=== PATIENT | male | born 1955 | race Caucasian/White ===

== ENCOUNTER 2017-09-26 18:09 | Inpatient (IN) ==
--- NOTE | 2017-09-26 18:40 | Emergency Department Report ---
Asthma HPI - General Stated Complaint: fluid retention on chest, tired Time Seen by Provider: 09/26/17 18:30 Source: patient, family Mode of arrival: ambulatory Limitations: no limitations - History of Present Illness HPI Narrative: Patient presents with a three-day history of feelings of chest congestion and dyspnea and occasional chills. Patient especially gets short of breath when ambulating. Patient has had a little slight cough, but feels like he is not able to expectorate. No history of COPD lung problems or congestive heart failure to his knowledge, although the patient does take a diuretic for fluid retention. Patient sees Ledy De, and has not seen her for greater than 4 months. - Related Data Home Medications Medication Instructions Recorded Confirmed Hydralazine HCl 50 mg PO TIDWM #0 tab 11/03/15 09/26/17 Insulin Detemir [Levemir Flextouch] 15 unit SQ BID #0 syringe 11/03/15 09/26/17 Acetaminophen [Acetaminophen ER] 1,300 mg PO Q8H PRN 09/26/17 09/26/17 Aspirin 325 mg PO DAILY 09/26/17 09/26/17 Chlorpheniramine/Dextromethorp 2 tab PO PRN PRN 09/26/17 09/26/17 [Coricidin Hbp Cough & Cold Tab] Gabapentin 300 mg PO HS 09/26/17 09/26/17 Gabapentin [Neurontin] 100 mg PO QAM 09/26/17 09/26/17 Insulin Lispro [HumaLOG] 25 unit SQ BID 09/26/17 09/26/17 Lisinopril [Prinivil] 5 mg PO DAILY 09/26/17 09/26/17 Metoprolol Succinate [Toprol Xl] 100 mg PO DAILY 09/26/17 09/26/17 Multivit-Min/FA/Lycopen/Lutein 1 tab PO DAILY 09/26/17 09/26/17 [Centrum Silver Tablet] Torsemide [Demadex] 20 mg PO DAILY 09/26/17 09/26/17 Allergies Allergy/AdvReac Type Severity Reaction Status Date / Time No Known Allergies Allergy Verified 09/26/17 18:33 Review of Systems All systems: reviewed and negative except as stated PFSH Patient Stated Medical History Cerebrovascular Accident Yes Cardiac Arrhythmia Yes: AFIB TODAY Hypertension Yes Chronic Obstructive Pulmonary Yes Disease (COPD) Diabetes Mellitus Type 1 Yes Clotting Problems Yes: BLOOD CLOT Other Hematologic Yes: L LEG BYPASS Type 2 diabetes mellitus - insulin requiring. Peripheral vascular disease. Coronary artery disease. Cardiomyopathy. Hypertension. Dyslipidemia. Stage III chronic kidney disease. Anxiety/depression. Obesity with BMI 36.2. 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 At rest patient's pulse drops down into the high 80s) - Normal Exams: Head:: Normocephalic without trauma Eyes:: Pupils are PERRLA w/ EOMI, No scleral icterus, irritation, or foreign bodies noted ENMT:: No facial trauma, nasal exudates, pharyngeal erythema, or exudates are noted Neck:: Full range of motion, without adenopathy, JVD, bruits or thyromegaly Cardiovascular:: Regular rate and rhythm, without murmur or gallop, Pulses 2+ all extremities, capillary refill, <2 seconds all extremities Abdomen:: Bowel sounds positive, soft, non-tender, non-distended, no hepatosplenomegaly, masses or bruits noted Lymphatic:: No lymphadenopathy, or lymphedema noted Musculoskeletal:: No tenderness, or deformity noted, good range of motion, all extremities Integumentary:: No rashes, hives, or bruising noted, hair and nails, without abnormality Neurological:: Patient is alert, and oriented, cranial nerves, motor/sensory/ cerebellar, exams w/o gross deficits, to observation Psychiatric:: Patient exhibits, appropriate attention, emotion and affect - Chest Chest inspection: Present: normal inspection, symmetric chest wall rise. Absent : tenderness - Respiratory Respiratory exam: Absent: normal lung sounds bilaterally (or spinal leak, questionable crackles in the bases), respiratory distress, wheezes, stridor, accessory muscle use, prolonged expiratory phase Course Vital Signs Temperature 98.0 F 09/26/17 18:20 Pulse Rate 78 09/26/17 18:20 Respiratory Rate 22 09/26/17 18:20 Blood Pressure 126/99 H 09/26/17 18:20 Pulse Oximetry 97 07/31/18 18:20 Temperature 98.0 F 09/26/17 18:20 Pulse Rate 78 09/26/17 18:20 Respiratory Rate 22 09/26/17 18:20 Blood Pressure 126/99 H 09/26/17 18:20 Pulse Oximetry 97 09/26/17 18:20 Dyspnea - MDM Narrative Medical decision making narrative: 4 EKG could be done, patient went into obvious atrial fibrillation with tachycardia in the 170s, and hypotension 71/48. Recheck of the patient's blood pressure yielded a much better blood pressure 165/91. EKG -atrial fibrillation with rapid ventricular response Patient is given Cardizem 20 mg, instructed 1 L bolus - no improvement. Patient is given a second bolus of Cardizem 25 mg IV CBC - mild white blood cell elevation, no left shift CMP - n ProBNP - elevated at 9900 Troponin - updated, 0.180 CXR -moderate diffuse infiltrative pattern in the bases consistent with pulmonary edema. No focal consolidations are seen that appear to represent any pneumonia Case is discussed with Dr. Church, we will have amiodarone and heparin boluses here in the ER, and start amiodarone and heparin drip. If patient does not convert, or worsens, patient may require electrocardioversion, and may require heart catheter in the morning. Spite the patient's elevated heart rate, he persists in having no difficulty breathing and no chest pain or pressure while at rest. 1999 - Patient's last blood pressures have gone down, between 93 and 113 systolic. Patient continues to be asymptomatic - Lab Data Result diagrams: 09/26/17 18:52 09/26/17 18:52 Lab Results 09/26/17 09/26/17 Range/Units 18:52 18:52 WBC 14.0 H (4.5-11.0) T/MM3 RBC 3.92 L (4.50-5.90) M/MM3 Hgb 12.6 L (13.5-17.5) GM/DL Hct 39.9 L (41-53) % MCV 101.8 H (80-100) UM3 MCH 32.1 (26-34) UUG MCHC 31.6 (31-37) GM/DL RDW Std Deviation 51.9 H (36.9-50.2) FL Plt Count 204 (130-400) T/MM3 MPV 12.3 (9.4-12.4) UM3 Immature Gran % (Auto) 0.2 (0.0-0.5) % Neut % (Auto) 77.7 H (33-66) % Lymph % (Auto) 14.5 L (23-45) % Stewart % (Auto) 6.4 (0-9.0) % Eos % (Auto) 0.9 (0-4) % Baso % (Auto) 0.3 (0-2) % Neut # (Auto) 10.8 H (1.8-7.7) T/MM3 Lymph # (Auto) 2.0 (1-4.8) T/MM3 [place] # (Auto) 0.9 H (0-0.8) T/MM3 Eos # (Auto) 0.1 (0-0.5) T/MM3 Baso # (Auto) 0.0 (0-0.2) T/MM3 Abs Immat Gran (auto) 0.03 (0.00-0.03) T/MM3 Turbidity < 20 (0-20) Sodium 145 (136-146) MEQ/L Potassium 3.1 L (3.6-5) MEQ/L Chloride 102 (98-107) MEQ/L Carbon Dioxide 30 (22-30) MEQ/L Anion Gap 13 (5-15) meq/L BUN 32.0 H (9-20) MG/DL Creatinine 2.1 H (0.8-1.5) mg/dL Estimated Creat Clear 53 (>50) mL/min GFR Calculation 32 (>60) mL/min BUN/Creatinine Ratio 15 (6-26) RATIO Glucose 182 H (75-110) MG/DL Calculated Osmolality 291 H (261-280) MOSM/KG Calcium 8.1 L (8.4-10.2) MG/DL Total Bilirubin 0.90 (0.20-1.30) MG/DL Conjugated Bilirubin 0.00 (0.00-0.30) mg/dL Unconjugated Bilirubin 0.90 (0.00-1.1) mg/dL Icterus Index < 2 (0-7) AST 37 (17-59) U/L ALT 30 (1-50) U/L Alkaline Phosphatase 91 (38-126) U/L Troponin I 0.180 H (0-0.12) ng/ml NT-Pro-B Natriuret Pep 9960 H (0-175) pg/mL Total Protein 7.0 (6.3-8.2) g/dL Albumin 3.8 (3.5-5.0) g/dL Globulin 3.2 (2.4-3.6) G/DL Albumin/Globulin Ratio 1.2 (1.1-2.2) RATIO Plasma Lactate 1.8 (0.6-2.2) MMOL/L Specimen Hemolysis < 15 (0-25) Critical Care Time Critical Care Time: Yes Total Critical Care Time: 75 Attestation: The Pt required consistent and aggressive intervention and diagnostics for new onset atrial fibrillation with rapid ventricular response, and altered vital signs including hypotension Disposition Clinical Impression: New onset a-fib, Atrial fibrillation with RVR Disposition: 02 To [facility] [place] Acute Care Condition: Stable Prescriptions: No Action Hydralazine HCl 50 mg PO TIDWM #0 tab Metoprolol Succinate [Toprol Xl] 100 mg PO DAILY Insulin Lispro [HumaLOG] 25 unit SQ BID Gabapentin 300 mg PO HS Multivit-Min/FA/Lycopen/Lutein [Centrum Silver Tablet] 1 tab PO DAILY Aspirin 325 mg PO DAILY Torsemide [Demadex] 20 mg PO DAILY Lisinopril [Prinivil] 5 mg PO DAILY Chlorpheniramine/Dextromethorp [Coricidin Hbp Cough & Cold Tab] 2 tab PO PRN PRN PRN Reason: Prn Orders Insulin Detemir [Levemir Flextouch] 15 unit SQ BID #0 syringe Acetaminophen [Acetaminophen ER] 1,300 mg PO Q8H PRN PRN Reason: Pain Gabapentin [Neurontin] 100 mg PO QAM Referrals: Alfonzo Connolly DO [Family Provider] - - Seen By: physician
[2017-09-26] MEDS: SALINE FLUSH 10ml SYRINGE IVF PRN ×2 (18:49→20:41)
[2017-09-26] MEDS ORDERED: DiltiaZEM 25 MG/5 ML INJECTION IVP ONE ×2 (18:57→19:24)
[2017-09-26] MEDS ORDERED: NS 1,000 ML IV ONE (18:59)
[2017-09-26] MEDS ORDERED: HEPARIN 1,000unit/ml INJECTION 10ml IVP ONE (19:52)
[2017-09-26] MEDS ORDERED: AMIODARONE 150mg/3ml INJECTION IV ONE (19:52)
[2017-09-26] MEDS ORDERED: AMIODARONE 450 MG in NS 250ml 250 ML IV SCH (19:54)
[2017-09-26] MEDS: HEPARIN DRIP 20,000 UNIT/500 ML BAG IV SCH (20:26)
[2017-09-26 21:08] VITALS: BMI 37.0
[2017-09-26] MEDS ORDERED: FUROSEMIDE 40 MG/4 ML INJECTION IVP SCH (21:30)
[2017-09-26] MEDS: DiltiaZEM Drip 125 MG in NS 125 ML IV SCH (22:02)
[2017-09-27] MEDS ORDERED: AMIODARONE 150mg/3ml INJECTION IV ONE (00:16)
[2017-09-27] MEDS: METOPROLOL 5mg/5ml INJECTION IVP SCH ×5 (00:29→20:01)
[2017-09-27] MEDS ORDERED: AMIODARONE 450 MG in NS 250ml 250 ML IV SCH (00:53)
--- NOTE | 2017-09-27 01:37 | Cardiology History & Physical ---
History of Present Illness Chief complaint: SOB HPI: This is a 62 year old patient with a history of mild CAD, PVD s/p left fem-pop bypass, NICM, HTN, PHTN, DSLD, DMT2, CKD stage 2, anxiety, depression, obesity, and [place]' Palsy. [facility]. He has not seen Dr. Jean-Baptiste since 2016. For the last 3 days he has been feeling bad and not able to sleep. He has had increasing SOB, SAHU, orthopnea, and PND. He has felt sweaty, feverish, and had a dry cough and feels his lungs filling up with fluid. He denies chest pain, palpitations, racing heart, swelling in legs or abdomen. for the last 2 days, he has had no appetite. He states he just felt "icky". For the last month he has had a bad tooth. but his left side of his face droops due to Chinchilla's Palsy. He saw a local renal doctor one time 2 years ago and he was prescribed torsemide. He takes his meds as prescribed. He lives with his Mother who is able to care for herself. His Mother brought him into ER. In ER ECG: A-fib HR 150, PVC's, NS ST T wave abnormality. Trop 0.18, CBC - mild white blood cell elevation at 14, Neutrophils elevated, but no left shift, Pro BNP 9960, Cr 2.1. CXR -moderate diffuse infiltrative pattern in the bases consistent with pulmonary edema. No focal consolidations are seen that appear to represent any pneumonia In ER he was given Cardizem boluses x2 which did not keep her HR down. Dr. Church was contacted and advised Amiodarone bolus and gtt and heparin gtt. Cardiac Procedures: 07/08/2017 heart cath: EF 25%, svere global hypokinesis, LM, LAD, left circ, marginals, diagonals, and RCA all free of significant lesions with mini=or irregularities and stenosis no greater than 30%. 11/03/2015 AOR: Left SFA occluded prox with reconstitutions mid pop. Left tibial 80%, left anterior tibial and peroneal patent. Right SFA occluded prox with reconstitusion pop atery, infra po patent. Unsuccessful attempt to recanulize the left SFA. He was referred to Dr. Gates, vascular surgeon. 2016 Left fem-pop bypass by Dr. Gates. 10/16/2014 echo: EF 50 - 55%, LVH, DD, BAD, RVE, mild MR, mild TR, mild MD, PAP 39. 11/06/2015 Left great toe amputated. Review of Systems - Constitutional Constitutional: Present: fatigue, malaise (generalized), night sweats - EENMT Eyes: Absent: blurry vision Mouth/Throat: Absent: sore throat - Cardiovascular Cardiovascular: Present: dyspnea on exertion, orthopnea. Absent: chest pain, palpitations, syncope, edema Vascular: Absent: pedal edema - Respiratory Respiratory: Present: cough (dry), dyspnea, dyspnea on exertion, chest congestion - Gastrointestinal Gastrointestinal: Present: constipation (no BN for a couple of days, usually has BM daily. ), other (no appetite. ). Absent: abdominal pain, hematemesis, melena, nausea - Genitourinary Genitourinary: Present: nocturia, urinary frequency. Absent: dysuria, hematuria - Musculoskeletal Musculoskeletal: Present: arthralgias - Integumentary/Breasts Integumentary: Absent: wounds - Neurological Neurological: Present: dizziness, weakness, other (feels out of balance for a while. ) - Psychiatric Psychiatric: Present: anxiety, depression - Endocrine Endocrine: Present: heat intolerance. Absent: palpitations - Hematologic/Lymphatic Hematologic/Lymphatic: Absent: easy bleeding, easy bruising PFSH Patient Stated Medical History Cerebrovascular Accident Yes Cardiac Arrhythmia Yes: AFIB TODAY Hypertension Yes Chronic Obstructive Pulmonary Yes Disease (COPD) Diabetes Mellitus Type 2 Yes Clotting Problems Yes: BLOOD CLOT Other Hematologic Yes: L LEG BYPASS Mild CAD s/p heart cath by Dr. Jean-Baptiste 06/2014 PVD s/p LE angiogram: occluded SFA blanca in 2016 PVD s/p left fem-pop bypass in 2016 Left great toe amputated 2016. Hyperlipidemia CKD stage 2 Anxiety / Depression Obesity Surgical History: Heart cath. left fem - pop bypass. left great toe amputation - Social History Smoking status: Former smoker (smoked 2 PPD for 37 yrs. quit 5 yrs ago.) Substance use type: does not use Alcohol intake frequency: does not drink Housing: house Household members: family (Mother) Current occupational status: disabled Current residence: Apartment/Private Home Social history: Walks without assistive devices, yet feel unsteady. Medications Home Medications Medication Instructions Recorded Confirmed Type Hydralazine HCl 50 mg PO TIDWM #0 tab 11/03/15 09/26/17 History Insulin Detemir [Levemir Flextouch] 15 unit SQ BID #0 syringe 11/03/15 09/26/17 History Acetaminophen [Acetaminophen ER] 1,300 mg PO Q8H PRN 09/26/17 09/26/17 History Aspirin 325 mg PO DAILY 09/26/17 09/26/17 History Chlorpheniramine/Dextromethorp 2 tab PO PRN PRN 09/26/17 09/26/17 History [Coricidin Hbp Cough & Cold Tab] Gabapentin 300 mg PO HS 09/26/17 09/26/17 History Gabapentin [Neurontin] 100 mg PO QAM 09/26/17 09/26/17 History Insulin Lispro [HumaLOG] 25 unit SQ BID 09/26/17 09/26/17 History Lisinopril [Prinivil] 5 mg PO DAILY 09/26/17 09/26/17 History Metoprolol Succinate [Toprol Xl] 100 mg PO DAILY 09/26/17 09/26/17 History Multivit-Min/FA/Lycopen/Lutein 1 tab PO DAILY 09/26/17 09/26/17 History [Centrum Silver Tablet] Torsemide [Demadex] 20 mg PO DAILY 09/26/17 09/26/17 History Allergies Allergy/AdvReac Type Severity Reaction Status Date / Time No Known Allergies Allergy Verified 09/26/17 18:33 Exam Vital signs: Temperature 98.0 F 09/27/17 00:00 Pulse Rate 154 H 09/27/17 00:46 Respiratory Rate 18 09/27/17 00:46 Blood Pressure 114/67 09/27/17 00:46 Pulse Oximetry 92 09/27/17 00:31 - Constitutional no acute distress, well nourished, well developed, morbidly obese, cooperative - Routine HEENT Exam Head: Present: normocephalic, atraumatic Eye: Present: conjunctivae pink ENT: Present: mucous membranes moist - Routine Neck Exam Present: JVD. Absent: carotid bruit - Routine Respiratory Exam Present: CTA bilaterally. Absent: respiratory distress - Routine Cardiovascular Exam Present: no murmur, tachycardia, irregular rhythm - Routine Abdominal Exam Present: soft, distended. Absent: firm, mass, hernia - Routine Exam Scrotal: Absent: swelling - Routine Extremities Exam Present: no edema. Absent: clubbing, pulses intact (unable to palpate pedal pulses blanca) - Routine Back/Spine/Pelvis Exam Back/Spine: Absent: CVA tenderness - Routine Skin Exam Present: intact, dry, warm, normal turgor. Absent: wounds - Routine Neurological Exam Present: alert, oriented X3, moving all extremities, vision grossly intact, hearing grossly intact, normal speech - Routine Psychiatric Exam Present: normal affect, normal thought process, cooperative, good insight, good judgment Results 09/26/17 18:52 09/26/17 18:52 Intake and Output 09/26/17 09/26/17 09/27/17 14:59 22:59 06:59 Intake Total 705.167 / 705.167 108.250 / 108.250 Output Total 275 / 275 Balance 705.167 / 705.167 -166.750 / -166.750 Intake: IV 705.167 / 705.167 108.250 / 108.250 DiltiaZEM Drip 125 mg In Ns 125 2.167 / 2.167 34.083 / 34.083 ml @ 5 mls/hr IV .Q24H LINDA Rx# :[id number] Heparin Drip 20,000 unit In 500 40.000 / 40.000 74.167 / 74.167 ml @ 25 mls/hr IV .Q20H LINDA Rx #:[id number] Ns 1,000 ml @ 999.9 mls/hr IV . 663 / 663 Q1H ONE Rx#:[id number] Output: Urine 275 / 275 Other: Urine Appearance Clear Urine Color Dark Yellow Weight 281 lb 1.43 oz Patient Weight 09/27/17 06:59 Weight 281 lb 1.43 oz Laboratory Last Values WBC 14.0 T/MM3 (4.5-11.0) H 09/26/17 18:52 RBC 3.92 M/MM3 (4.50-5.90) L 09/26/17 18:52 Hgb 12.6 GM/DL (13.5-17.5) L 09/26/17 18:52 Hct 39.9 % (41-53) L 09/26/17 18:52 MCV 101.8 UM3 (80-100) H 09/26/17 18:52 MCH 32.1 UUG (26-34) 09/26/17 18:52 MCHC 31.6 GM/DL (31-37) 09/26/17 18:52 RDW Std Deviation 51.9 FL (36.9-50.2) H 09/26/17 18:52 Plt Count 204 T/MM3 (130-400) 09/26/17 18:52 MPV 12.3 UM3 (9.4-12.4) 09/26/17 18:52 Immature Gran % (Auto) 0.2 % (0.0-0.5) 09/26/17 18:52 Neut % (Auto) 77.7 % (33-66) H 09/26/17 18:52 Lymph % (Auto) 14.5 % (23-45) L 09/26/17 18:52 [place] % (Auto) 6.4 % (0-9.0) 09/26/17 18:52 Eos % (Auto) 0.9 % (0-4) 09/26/17 18:52 Baso % (Auto) 0.3 % (0-2) 09/26/17 18:52 Neut # (Auto) 10.8 T/MM3 (1.8-7.7) H 09/26/17 18:52 Lymph # (Auto) 2.0 T/MM3 (1-4.8) 09/26/17 18:52 [place] # (Auto) 0.9 T/MM3 (0-0.8) H 09/26/17 18:52 Eos # (Auto) 0.1 T/MM3 (0-0.5) 09/26/17 18:52 Baso # (Auto) 0.0 T/MM3 (0-0.2) 09/26/17 18:52 Abs Immat Gran (auto) 0.03 T/MM3 (0.00-0.03) 09/26/17 18:52 Turbidity < 20 (0-20) 09/26/17 18:52 Sodium 145 MEQ/L (136-146) 09/26/17 18:52 Potassium 3.1 MEQ/L (3.6-5) L 09/26/17 18:52 Chloride 102 MEQ/L (98-107) 09/26/17 18:52 Carbon Dioxide 30 MEQ/L (22-30) 09/26/17 18:52 Anion Gap 13 meq/L (5-15) 09/26/17 18:52 BUN 32.0 MG/DL (9-20) H 09/26/17 18:52 Creatinine 2.1 mg/dL (0.8-1.5) H 09/26/17 18:52 Estimated Creat Clear 53 mL/min (>50) 09/26/17 18:52 GFR Calculation 32 mL/min (>60) 09/26/17 18:52 BUN/Creatinine Ratio 15 RATIO (6-26) 09/26/17 18:52 Glucose 182 MG/DL (75-110) H 09/26/17 18:52 Glucometer 185 mg/dL (65-110) 09/27/17 01:50 Calculated Osmolality 291 MOSM/KG (261-280) H 09/26/17 18:52 Calcium 8.1 MG/DL (8.4-10.2) L 09/26/17 18:52 Total Bilirubin 0.90 MG/DL (0.20-1.30) 09/26/17 18:52 Conjugated Bilirubin 0.00 mg/dL (0.00-0.30) 09/26/17 18:52 Unconjugated Bilirubin 0.90 mg/dL (0.00-1.1) 09/26/17 18:52 Icterus Index < 2 (0-7) 09/26/17 18:52 AST 37 U/L (17-59) 09/26/17 18:52 ALT 30 U/L (1-50) 09/26/17 18:52 Alkaline Phosphatase 91 U/L (38-126) 09/26/17 18:52 Troponin I 0.180 ng/ml (0-0.12) H 09/26/17 18:52 NT-Pro-B Natriuret Pep 9960 pg/mL (0-175) H 09/26/17 18:52 Total Protein 7.0 g/dL (6.3-8.2) 09/26/17 18:52 Albumin 3.8 g/dL (3.5-5.0) 09/26/17 18:52 Globulin 3.2 G/DL (2.4-3.6) 07/31/18 18:52 Albumin/Globulin Ratio 1.2 RATIO (1.1-2.2) 09/26/17 18:52 Plasma Lactate 1.5 MMOL/L (0.6-2.2) 09/26/17 23:28 Specimen Hemolysis < 15 (0-25) 09/26/17 18:52 - EKG Interpretation EKG shows: tachycardia, atrial fibrillation Hospital Course This is a general summary of the patient's hospital course. For more details refer to the complete medical record. Assessment and Plan - Assessment and Plan (1) Atrial fibrillation with RVR Current visit: Yes Status: Acute - Assessment and Plan A-fib w RVR: new onset likely 3 days ago. - HR up to 180 on admit. - Received Cardizem boluses and Cardizem gtt at 15 mg/hr and HR 160's - Received metoprolol 5mg q 6 hrs with parameters and HR came down to 140's. - Started amiodarone bolus and gtt per protocol and HR decreased 100's - 120' s - Heparin gtt for anticoagulation. - metoprolol tartrate 25mg po QID (takes metoprolol succinate 100mg daily at home) - Replaced K+, check mag and TSH in am. . - NPO for possible RADHA/DCCV NSTEMI - likely due to A-fib w RVR - Trop 0.18 - check serial trop. Mild CAD per [address] Jean-Baptiste - stenosis no greater than 30% ( report on chart). - cont ASA, start statin. Hx NICM, DCM - 07/08/2014 Heart cath: EF 25%, - 10/16/2014 echo: EF 50-55%, LVH, DD, BAD, RVE, mild MR/TR/MD, PAP 39. - with SOB, SAHU, orthopnea, - BNP 9960 - lasix 40mg IV x1 tonight - which improved symptoms. will likely need more tomorrow. - takes torsemide at home as prescribed by renal - on hold for now. - echo to evaluate structure and function of heart. - need to check into who his renal physician is, has not seen for probably 2 years. PVD - s/p 2016 left fem-pop bypass. - s/p left great toe amputation. - cont ASA, start atorvastatin - feet warm, no wounds. HTN - hold home hydralazine and lisinopril in order to use other meds to control HR - cont metoprolol tartrate 25mg QID (home dose metorpolol succinate 100mg po daily). - cont Cardizem gtt for now. DMT2 - FBS and 2 hr pc - gave Levimir 15mg last night for BS 180 last night. (he takes it BID) - did not restart home humalog since NPO. CKD Stage 2 - monitor Cr. Bad tooth on left side of mouth for the last month. - states he plans to go to the dentist but concerned about the cost Chinchilla's Palsy.
[2017-09-27] MEDS ORDERED: ONDANSETRON 4 MG/2 ML INJECTION IVP PRN (01:39)
[2017-09-27] MEDS ORDERED: NITROGLYCERIN 0.4 MG SUBLINGUAL TABLET SL PRN (01:39)
[2017-09-27] MEDS: OMEPRAZOLE 20 MG CAPSULE PO SCH (06:12)
[2017-09-27] MEDS ORDERED: FUROSEMIDE 40 MG/4 ML INJECTION IVP ONE (06:30)
[2017-09-27] MEDS: DiltiaZEM Drip 125 MG in NS 125 ML IV SCH ×4 (06:31→23:57)
--- NOTE | 2017-09-27 08:30 | XRay Report ---
INDICATION: dyspnea with chills PROCEDURE: CHEST 2-VIEWS UPRIGHT (PA & LAT) Encounter: Initial COMPARISON: May 19, 2015 FINDINGS: There is hazy opacity seen in the perihilar regions bilaterally. No lobar pneumonia. No pneumothorax or pleural fluid. Cardiac silhouette remains enlarged. Mediastinal contours and pulmonary vascularity are stable. Impression: Perihilar opacities could represent edema or atypical/viral pneumonia. .
[2017-09-27] MEDS: INSULIN ASPART 100unit/ml INJECTION SQ SCH ×2 (08:49→18:27)
[2017-09-27] MEDS: ASPIRIN 325 MG TABLET PO SCH (08:56)
[2017-09-27] MEDS: GABAPENTIN 100 MG CAPSULE PO SCH (08:57)
[2017-09-27] MEDS: INSULIN DETEMIR 100unit/ml INJECTION SQ SCH ×2 (08:57→20:01)
[2017-09-27] MEDS: AMIODARONE 900 MG in NS 500ml 500 ML IV SCH (08:58)
[2017-09-27] MEDS ORDERED: NON-FORMULARY MEDICATION 1 EACH EACH (Insulin Detemir [Levemir Flextouch] 15 UNIT) SQ SCH (09:00)
[2017-09-27] MEDS ORDERED: [UNRECOGNIZED DRUG - REMARK] SQ SCH (09:00)
[2017-09-27] MEDS ORDERED: SALINE FLUSH 10ml SYRINGE ONE (10:09)
[2017-09-27] MEDS ORDERED: CHLORPHENIRAMINE 4 MG TABLET PO PRN (11:45)
[2017-09-27] MEDS ORDERED: DEXTROMETHORPHAN 30 MG/5 ML ORAL LIQUID PO PRN (11:46)
[2017-09-27] MEDS: BUMETANIDE IV SCH (15:47)
[2017-09-27] MEDS ORDERED: MIDAZOLAM 2mg/2ml INJECTION IVP ONE (15:48)
[2017-09-27] MEDS ORDERED: FentaNYL 100 MCG/2 ML INJECTION IVP ONE (15:48)
[2017-09-27] MEDS ORDERED: SALINE FLUSH 10ml SYRINGE IV ONE (15:48)
[2017-09-27] MEDS: HEPARIN DRIP 20,000 UNIT/500 ML BAG IV SCH (16:09)
[2017-09-27] MEDS ORDERED: FUROSEMIDE 40 MG/4 ML INJECTION IVP SCH (17:00)
[2017-09-27] MEDS: SALINE FLUSH 10ml SYRINGE IVF PRN (19:59)
[2017-09-27] MEDS: GABAPENTIN 300 MG CAPSULE PO SCH (20:01)
--- NOTE | 2017-09-27 21:21 | Echocardiogram ---
DATE OF PROCEDURE 09/27/2017 PROCEDURE PERFORMED 2D echocardiography with M-mode assessment, full color spectral Doppler assessment. INDICATIONS Acute heart failure exacerbation, known cardiomyopathy. FINDINGS 1. LEFT VENTRICLE: Left ventricle appears mildly to moderately enlarged. Mild concentric left ventricular hypertrophy noted. Severely reduced left ventricular systolic function noted. Estimated LVEF 15%-20%. There is severe global hypokinesis noted. The study is not technically sufficient to allow accurate assessment of diastolic dysfunction. 2. RIGHT VENTRICLE: Right ventricle appears normal in size. Normal right ventricular systolic function noted. 3. RIGHT ATRIUM: Right atrium is mildly enlarged. 4. LEFT ATRIUM: Left atrium is markedly dilated. 5. MITRAL VALVE: Mitral annulus is dilated. No structural abnormality is noted. There is central mitral regurgitation noted. [id number] mitral regurgitation noted. No significant mitral stenosis noted. 6. AORTIC VALVE: Aortic valve appears trileaflet. No significant aortic stenosis noted. No significant aortic regurgitation noted. 7. TRICUSPID VALVE: Tricuspid valve appears structurally normal. There is mild tricuspid regurgitation noted. 8. PULMONIC VALVE: Pulmonic valve not visualized on today's study. 9. INFERIOR VENA CAVA: Significantly dilated with poor respirophasic variation. 10. PULMONARY ARTERY: Estimated pulmonary artery systolic pressure is about 50 -60 mmHg. CONCLUSION 1. Significantly reduced left ventricular systolic function. Estimated LVEF 15 %-20%. 2. Right ventricle normal. Right ventricular systolic function normal. 3. [id number] mitral regurgitation noted. 4. Mild tricuspid regurgitation noted. 5. Dilated IVC with no respiratory variation noted. 6. Estimated pulmonary artery systolic pressure 50-60 mmHg. MTDD
--- NOTE | 2017-09-27 21:45 | Transesophageal Echocardiogram ---
DATE OF PROCEDURE 09/27/2017 PROCEDURES PERFORMED 1. Transesophageal echocardiography. 2. Synchronized direct current cardioversion. INDICATIONS Mr. Rosa is a 62-year-old male with known cardiomyopathy who presented with symptoms of acute heart failure exacerbation, also found to be in atrial fibrillation with rapid ventricular response. He was placed on amiodarone and Cardizem infusion overnight. He continued to remain in rapid ventricular response. Due to no response to intravenous agents he was referred for cardioversion. The patient has not been on anticoagulation so we decided to proceed with transesophageal echocardiogram to rule out intracardiac source of thrombus prior to cardioversion. NARRATIVE OF PROCEDURE The procedure was performed in the CCU at the bedside. Risks and benefits of the procedure were explained to the patient at length. Informed consent was obtained. The patient received intravenous midazolam 3 mg and intravenous Fentanyl 100 mg for conscious sedation. After sedation the probe was inserted without difficulty. Multiple transesophageal and transgastric views were obtained and the probe was removed. The patient at this point developed some apneic episodes and some oxygen desaturations. The patient was stabilized with brief bag-mask ventilation. We then proceeded with synchronized direct current cardioversion. A single shock was delivered. We were not able to convert the patient from atrial fibrillation. At this point since the patient continued to require high oxygen and from a respiratory standpoint was unstable, we aborted further attempts to cardiovert him. The patient was continuously monitored in CCU after the procedure. SUMMARY OF FINDINGS TRANSESOPHAGEAL ECHOCARDIOGRAM 1. LEFT VENTRICLE: Left ventricle is mildly to moderately enlarged. Mild concentric left ventricular hypertrophy. Significantly reduced left ventricular systolic function noted. Estimated LVEF is about 10%-15%. 2. RIGHT VENTRICLE: Right ventricle appears normal in size. Normal right ventricular systolic function noted. 3. MITRAL VALVE: Dilated mitral annulus. [id number] mitral regurgitation noted. 4. AORTIC VALVE: Aortic valve is trileaflet. There is trivial aortic regurgitation noted. 5. TRICUSPID VALVE: Tricuspid valve structurally normal. There is mild tricuspid regurgitation noted. 6. PULMONIC VALVE: Pulmonic valve is poorly visualized on today's study. 7. LEFT ATRIUM: Left atrium is significantly dilated. No significant thrombus or mass noted. Left atrial appendage is dilated. There is spontaneous echo contrast noted in the left atrial appendage but no thrombus or source of emboli noted. Emptying velocities are significantly reduced. CONCLUSION 1. Transesophageal echocardiography did not reveal any intracardiac source of emboli or left atrial appendage thrombus. There was spontaneous echo contrast noted in the left atrial appendage. 2. Unsuccessful attempt on cardioversion from atrial fibrillation. Patient remained in atrial fibrillation. RECOMMENDATIONS At this time will continue to optimize heart failure management. Aggressively diurese the patient. Continue on amiodarone infusion for now. Once the patient improves from a respiratory standpoint, then cardioversion can be reattempted. MTDD
[2017-09-27] MEDS ORDERED: HEPARIN - PHARMACY CONSULT MC ONE (22:36)
[2017-09-27] MEDS ORDERED: HEPARIN 1,000unit/ml INJECTION 10ml IVP ONE (23:49)
[2017-09-28] MEDS: BUMETANIDE IV SCH (02:05)
[2017-09-28] MEDS: METOPROLOL 5mg/5ml INJECTION IVP SCH ×4 (03:01→20:45)
[2017-09-28] MEDS ORDERED: ZOLPIDEM 5 MG TABLET PO PRN (05:15)
[2017-09-28] MEDS ORDERED: HYDRALAZINE 25 MG TABLET PO ONE (05:21)
[2017-09-28] MEDS: OMEPRAZOLE 20 MG CAPSULE PO SCH (06:37)
--- NOTE | 2017-09-28 07:33 | Pharmacy Consult ---
Pharmacy Consult-Heparin - Laboratory Information Heparin Plt Count 215 T/MM3 (130-400) 09/28/17 04:18 APTT 33.1 SEC (24-36) 09/27/17 22:49 HEPARIN THERAPY: 62yo M presenting with A. Fib with RVR, NSTEMI. Multiple comorbidities: T2DM, COPD, HTN CKD stage 2, Hyperlipidemia, etc. Heparin was started 09/26 evening with Bolus 4,000 units, Drip at 1000 units/hr. PTT 09/27 @ 2300 = 33.1 Gave another bolus of 5,000 units. Increased drip to 1,320 units/hr (33 ml/hr). Plt count continues WNL. Repeating PTT this am at 0800. Thank you
--- NOTE | 2017-09-28 08:23 | XRay Report ---
Indication: picc line PROCEDURE: XR chest 1V: Encounter: Initial Comparison: September 26, 2017 Findings: New right PICC line with the tip projecting over the right internal jugular vein on the initial image and over the mid to distal SVC on the subsequent image. Fluffy bilateral infiltrates with interval worsening in the left upper lobe. No pneumothorax or definite effusion. Heart size is contours are stable. Impression: New right PICC line tip projects over the lower SVC. Increasing edema. There is a preliminary report by [facility]. .
[2017-09-28] MEDS: INSULIN DETEMIR 100unit/ml INJECTION SQ SCH ×2 (08:31→20:43)
[2017-09-28] MEDS: INSULIN ASPART 100unit/ml INJECTION SQ SCH ×2 (08:32→17:54)
[2017-09-28] MEDS: HYDRALAZINE 25 MG TABLET PO SCH ×3 (08:34→17:53)
[2017-09-28] MEDS: ASPIRIN 325 MG TABLET PO SCH (08:34)
[2017-09-28] MEDS: GABAPENTIN 100 MG CAPSULE PO SCH (08:38)
[2017-09-28] MEDS ORDERED: HEPARIN 1,000unit/ml INJECTION 10ml IVP ONE ×2 (09:00→18:45)
--- NOTE | 2017-09-28 09:00 | Pharmacy Consult ---
Pharmacy Consult-Heparin - Laboratory Information Heparin Plt Count 215 T/MM3 (130-400) 09/28/17 04:18 APTT 37.1 SEC (24-36) H 09/28/17 07:56 HEPARIN THERAPY: PTT still low. Will BOLUS again, this time with 7,000 units Heparin IV. Increase drip to 1600 units/hr (40 ml/hr). Will recheck levels this afternoon. Target PTT = 50-75 sec. thank you
[2017-09-28] MEDS: DiltiaZEM Drip 125 MG in NS 125 ML IV SCH ×2 (09:22→18:27)
[2017-09-28] MEDS: HEPARIN DRIP 20,000 UNIT/500 ML BAG IV SCH ×2 (10:08→22:25)
[2017-09-28] MEDS: DiltiaZEM IR 60 MG TABLET PO SCH ×2 (12:37→18:30)
--- NOTE | 2017-09-28 13:40 | Cardiology Progress Note ---
Subjective Principal diagnosis: dyspnea Interval history: Jordon is seen in follow up for A Fib with RVR, NSTEMI. He states his breathing is much improved from yesterday. HR remains elevated in the 120-130s however the patient is unaware. He denies chest pain or pressure. Exam Vital signs: Temperature 97.7 F 09/28/17 04:00 Pulse Rate 143 H 09/28/17 07:15 Respiratory Rate 22 09/28/17 07:15 Blood Pressure 155/99 H 09/28/17 07:15 Pulse Oximetry 90 09/28/17 07:15 Inpatient Medications: Generic Name Dose Route Start Last Admin Trade Name Freq PRN Reason Stop Dose Admin Acetaminophen 1,300 mg 09/27/17 00:17 09/28/17 11:18 Tylenol Arthritis 650 Mg Sr PO 1,300 mg Q8H PRN Administration Pain Aspirin 325 mg 09/27/17 09:00 09/28/17 08:34 Asa PO 325 mg DAILY LINDA Administration Chlorpheniramine Maleate 4 mg 09/27/17 11:45 Chlor-Trimeton PO PRN PRN For allergic rhinitis Dextromethorphan Polistirix 30 mg 09/27/17 11:46 Delsym Ext-Release PO Q12H PRN For cough Diltiazem HCl 60 mg 09/28/17 12:30 09/28/17 12:37 Cardizem Ir 60 Mg Tab PO 60 mg Q6H LINDA Administration Gabapentin 100 mg 09/27/17 09:00 09/28/17 08:38 Neurontin PO 100 mg QAM LINDA Administration Gabapentin 300 mg 09/27/17 21:00 09/27/17 20:01 Neurontin PO 300 mg HS LINDA Administration Hydralazine HCl 50 mg 09/28/17 08:00 09/28/17 12:34 Apresoline PO 50 mg TIDWM LINDA Administration Heparin Sodium (Porcine) 20,000 unit in 500 mls @ 40 mls/hr 09/26/17 19:54 10:08 Heparin Drip IV 40 mls/hr .[id number] LINDA 40 mls/hr Administration Protocol Diltiazem HCl 125 mg/ Sodium 125 mls @ 5 mls/hr 09/26/17 21:30 09/28/17 09:22 Chloride IV 15 mls/hr .Q24H LINDA Administration Protocol Amiodarone HCl 900 mg/ Sodium 500 mls @ 16.66 mls/hr 09/27/17 00:53 09/28/17 07:00 Chloride IV 0.5 mg/min .Q24H LINDA 16.66 mls/hr Infusion 0.5 MG/MIN Bumetanide 25 mg/ IV Solution 100 mls @ 4 mls/hr 09/27/17 15:30 09/28/17 07: 00 IV 1 mg/hr .Q24H LINDA 4 mls/hr Infusion 1 MG/HR Insulin Aspart 15 unit 09/27/17 08:00 09/28/17 08:32 Novolog SQ 15 unit BIDWM LINDA Administration Insulin Detemir 15 unit 09/27/17 09:00 09/28/17 08:31 Levemir SQ 15 unit BID LINDA Administration Metoprolol Tartrate 5 mg 09/27/17 00:15 09/28/17 11:45 Lopressor IVP 5 mg Q6HR LINDA Administration Metoprolol Tartrate 25 mg 09/27/17 08:00 09/28/17 12:35 Lopressor PO 25 mg WMHS LINDA Administration Nitroglycerin 0.4 mg 09/27/17 01:39 Nitrostat SL Q5MIN3 PRN Chest pain Omeprazole 20 mg 09/27/17 06:30 09/28/17 06:37 Prilosec PO 20 mg ACB LINDA Administration Ondansetron HCl 4 mg 09/27/17 01:39 Zofran IVP Q6H PRN Nausea &/or vomiting Potassium Chloride 20 meq 09/27/17 17:30 09/28/17 12:35 K-Dur 20 Meq Tablet PO 20 meq TIDWM LINDA Administration Sodium Chloride 10 - 80 ml 09/26/17 18:36 09/27/17 19:59 Iv Flush IVF 20 ml PRN PRN Administration Flushing Zolpidem Tartrate 5 mg 09/28/17 05:15 Ambien PO HS PRN Insomnia Discontinued Medications Generic Name Dose Route Start Last Admin Trade Name Freq PRN Reason Stop Dose Admin Amiodarone HCl 150 mg 09/26/17 19:52 09/27/17 07:15 Amiodarone IV 09/26/17 19:53 Not Given O ONE Amiodarone HCl 150 mg 09/27/17 00:16 09/27/17 00:29 Amiodarone IV 09/27/17 00:17 150 mg O ONE Administration Bumetanide 2 mg 09/27/17 14:24 09/27/17 15:02 Bumex 1 Mg/4 Ml Inj. IVP 09/27/17 14:25 2 mg O ONE Administration Diltiazem HCl 20 mg 09/26/17 18:57 09/26/17 19:04 Cardizem 25 Mg Inj IVP 09/26/17 18:58 20 mg O ONE Administration Diltiazem HCl 25 mg 09/26/17 19:24 09/26/17 19:33 Cardizem 25 Mg Inj IVP 09/26/17 19:25 25 mg O ONE Administration Furosemide 40 mg 09/26/17 21:30 09/26/17 21:27 Lasix 40 Mg/4 Ml IVP 40 mg O LINDA Administration Furosemide 40 mg 09/27/17 06:30 09/27/17 06:58 Lasix 40 Mg/4 Ml IVP 09/27/17 06:31 40 mg O ONE Administration Furosemide 40 mg 09/27/17 17:00 Lasix 40 Mg/4 Ml IVP Q8HR LINDA Heparin Sodium (Beef Lung) 4,000 unit 09/26/17 19:52 09/26/17 20:07 Heparin Bolus IVP 09/26/17 19:53 4,000 unit O ONE Administration Heparin Sodium (Beef Lung) 5,000 unit 09/27/17 23:49 09/27/17 23:56 Heparin Bolus IVP 09/27/17 23:50 5,000 unit O ONE Administration Heparin Sodium (Beef Lung) 7,000 unit 09/28/17 09:00 09/28/17 09:08 Heparin Bolus IVP 09/28/17 09:01 7,000 unit O ONE Administration Heparin Sodium (Porcine) 1 each 09/27/17 22:36 09/28/17 00:22 Pharmacy Consult - Heparin MC 09/27/17 22:37 1 each O ONE Administration Hydralazine HCl 50 mg 09/28/17 05:21 09/28/17 05:33 Apresoline PO 09/28/17 05:22 Not Given O ONE Sodium Chloride 1,000 mls @ 999.9 mls/hr 09/26/17 18:59 09/26/17 19:45 Normal Saline IV 09/26/17 19:58 Infused .Q1H ONE Infusion Amiodarone HCl 450 mg/ Sodium 250 mls @ 33.33 mls/hr 09/26/17 19:54 09/27/17 07:01 Chloride IV 09/27/17 01:54 Not Given .Q7H31M LINDA 1 MG/MIN Amiodarone HCl 450 mg/ Sodium 250 mls @ 33.33 mls/hr 09/27/17 00:53 09/27/17 09:00 Chloride IV 09/27/17 06:53 Infused .Q7H31M LINDA Infusion 1 MG/MIN Non-Formulary Medication 2 tab 09/27/17 00:17 Chlorpheniramine/Dextromethorp [Coricidin Hbp Cough & Cold Tab] PO PRN PRN PRN orders Non-Formulary Medication 15 unit 09/27/17 09:00 Insulin Detemir [Levemir Flextouch] SQ BID LINDA Non-Formulary Medication 25 unit 09/27/17 09:00 Insulin Lispro-Do Not Expunge SQ BID LINDA Potassium Chloride 40 meq 09/27/17 00:22 09/27/17 00:37 K-Dur 20 Meq Tablet PO 09/27/17 00:23 40 meq O ONE Administration Potassium Chloride 20 meq 09/28/17 05:18 09/28/17 05:33 K-Dur 20 Meq Tablet PO 09/28/17 05:19 Not Given O ONE - Constitutional no acute distress, well nourished, cooperative - Routine HEENT Exam Head: Present: normocephalic ENT: Present: mucous membranes dry - Routine Neck Exam Absent: JVD, carotid bruit - Routine Chest/Breast/Axilla Exam Chest wall: Absent: tenderness - Routine Respiratory Exam Present: CTA bilaterally, diminished air movement. Absent: dyspnea - Routine Cardiovascular Exam Present: no murmur, tachycardia, irregularly irregular - Routine Abdominal Exam Present: soft, non tender - Routine Extremities Exam Present: no edema. Absent: pulses intact - Routine Skin Exam Present: intact, dry, warm - Routine Neurological Exam Present: alert - Routine Psychiatric Exam Present: normal affect - Urinary Catheter Management Urethral Cath placed during this visit: yes Insertion date: 09/27/17 Insertion time: 14:49 Results 09/28/17 04:18 09/28/17 04:18 Cardiac Enzymes 09/27/17 Range/Units 15:19 Troponin I 0.167 H (0-0.12) ng/ml Coagulation 09/27/17 09/28/17 Range/Units 22:49 07:56 APTT 33.1 37.1 H (24-36) SEC Lipids 09/28/17 Range/Units 04:18 Triglycerides 251 H (40-160) mg/dL Cholesterol 144 (132-199) mg/dL HDL Cholesterol 26 L (40-60) mg/dL Cholesterol/HDL Ratio 5.5 H (0-5.0) RATIO CBC 09/28/17 Range/Units 04:18 WBC 16.9 H (4.5-11.0) T/MM3 RBC 3.79 L (4.50-5.90) M/MM3 Hgb 12.2 L (13.5-17.5) GM/DL Hct 39.1 L (41-53) % Plt Count 215 (130-400) T/MM3 Comprehensive Metabolic Panel 09/28/17 Range/Units 04:18 Sodium 147 H (136-146) MEQ/L Potassium 3.1 L (3.6-5) MEQ/L Chloride 101 (98-107) MEQ/L Carbon Dioxide 32 H (22-30) MEQ/L BUN 47.0 H (9-20) MG/DL Creatinine 2.2 H (0.8-1.5) mg/dL Glucose 173 H (75-110) MG/DL Calcium 7.0 L D (8.4-10.2) MG/DL Intake and Output 09/27/17 09/28/17 09/28/17 22:59 06:59 14:59 Intake Total 1077.752 / 1077.752 766.030 / 766.030 160.66 / 160.66 Output Total 772 / 772 2280 / 2280 265 / 265 Balance 305.752 / 305.752 -1513.970 / -1513.970 -104.34 / -104.34 Intake: IV 837.752 / 837.752 526.030 / 526.030 160.66 / 160.66 Amiodarone 900 mg In NS 500ml 217.135 / 217.135 133.28 / 133.28 16.66 / 16.66 500 ml @ 0.5 MG/MIN 16.66 mls/ hr IV .Q24H LINDA Rx#:[id number] Bumetanide Inj 25 mg In 24.867 / 24.867 32.000 / 32.000 4 / 4 Container,Empty 100 ml @ 1 MG/ HR 4 mls/hr IV .Q24H LINDA Rx#: [id number] DiltiaZEM Drip 125 mg In Ns 125 220.75 / 220.75 112.75 / 112.75 34.25 / 34.25 ml @ 5 mls/hr IV .Q24H LINDA Rx# :[id number] Heparin Drip 20,000 unit In 500 375.00 / 375.00 248 / 248 105.75 / 105.75 ml @ 40 mls/hr IV .[id number] LINDA Rx#:[id number] Oral 240 / 240 240 / 240 Output: Urine Amount (Catheter) 772 / 772 2280 / 2280 265 / 265 Other: Urine Appearance Clear Clear Clear Urine Color Yellow Yellow Yellow # Bowel Movements 1 - Imaging and Cardiology Imaging & Cardiology Narrative: Date of Exam: 09/27/17 Type of Exam(s): US fernie w/ doppler DATE OF PROCEDURE 09/27/2017 PROCEDURES PERFORMED 1. Transesophageal echocardiography. 2. Synchronized direct current cardioversion. INDICATIONS Mr. Rosa is a 62-year-old male with known cardiomyopathy who presented with symptoms of acute heart failure exacerbation, also found to be in atrial fibrillation with rapid ventricular response. He was placed on amiodarone and Cardizem infusion overnight. He continued to remain in rapid ventricular response. Due to no response to intravenous agents he was referred for cardioversion. The patient has not been on anticoagulation so we decided to proceed with transesophageal echocardiogram to rule out intracardiac source of thrombus prior to cardioversion. NARRATIVE OF PROCEDURE The procedure was performed in the CCU at the bedside. Risks and benefits of the procedure were explained to the patient at length. Informed consent was obtained. The patient received intravenous midazolam 3 mg and intravenous Fentanyl 100 mg for conscious sedation. After sedation the probe was inserted without difficulty. Multiple transesophageal and transgastric views were obtained and the probe was removed. The patient at this point developed some apneic episodes and some oxygen desaturations. The patient was stabilized with brief bag-mask ventilation. We then proceeded with synchronized direct current cardioversion. A single shock was delivered. We were not able to convert the patient from atrial fibrillation. At this point since the patient continued to require high oxygen and from a respiratory standpoint was unstable, we aborted further attempts to cardiovert him. The patient was continuously monitored in CCU after the procedure. SUMMARY OF FINDINGS TRANSESOPHAGEAL ECHOCARDIOGRAM 1. LEFT VENTRICLE: Left ventricle is mildly to moderately enlarged. Mild concentric left ventricular hypertrophy. Significantly reduced left ventricular systolic function noted. Estimated LVEF is about 10%-15%. 2. RIGHT VENTRICLE: Right ventricle appears normal in size. Normal right ventricular systolic function noted. 3. MITRAL VALVE: Dilated mitral annulus. [id number]-[id number] mitral regurgitation noted. 4. AORTIC VALVE: Aortic valve is trileaflet. There is trivial aortic regurgitation noted. 5. TRICUSPID VALVE: Tricuspid valve structurally normal. There is mild tricuspid regurgitation noted. 6. PULMONIC VALVE: Pulmonic valve is poorly visualized on today's study. 7. LEFT ATRIUM: Left atrium is significantly dilated. No significant thrombus or mass noted. Left atrial appendage is dilated. There is spontaneous echo contrast noted in the left atrial appendage but no thrombus or source of emboli noted. * * velocities are significantly reduced. CONCLUSION 1. Transesophageal echocardiography did not reveal any intracardiac source of emboli or left atrial appendage thrombus. There was spontaneous echo contrast noted in the left atrial appendage. 2. Unsuccessful attempt on cardioversion from atrial fibrillation. Patient remained in atrial fibrillation. RECOMMENDATIONS At this time will continue to optimize heart failure management. Aggressively diurese the patient. Continue on amiodarone infusion for now. Once the patient improves from a respiratory standpoint, then cardioversion can be reattempted. 09/28/17 13:40 Assessment and Plan - Assessment and Plan (1) Atrial fibrillation with RVR Current visit: Yes Status: Acute - Assessment and Plan 09/27/17 A-fib w RVR: new onset likely 3 days ago. - HR up to 180 on admit. - Received Cardizem boluses and Cardizem gtt at 15 mg/hr and HR 160's - Received metoprolol 5mg q 6 hrs with parameters and HR came down to 140's. - Started amiodarone bolus and gtt per protocol and HR decreased 100's - 120' s - Heparin gtt for anticoagulation. - metoprolol tartrate 25mg po QID (takes metoprolol succinate 100mg daily at home) - Replaced K+, check mag and TSH in am. . - NPO for possible FERNIE/DCCV NSTEMI - likely due to A-fib w RVR - Trop 0.18 - check serial trop. Mild CAD per [address] Jean-Baptiste - stenosis no greater than 30% ( report on chart). - cont ASA, start statin. Hx NICM, DCM - 07/08/2014 Heart cath: EF 25%, - 10/16/2014 echo: EF 50-55%, LVH, DD, BAD, RVE, mild MR/TR/AL, PAP 39. - with SOB, SAHU, orthopnea, - BNP 9960 - lasix 40mg IV x1 tonight - which improved symptoms. will likely need more tomorrow. - takes torsemide at home as prescribed by renal - on hold for now. - echo to evaluate structure and function of heart. - need to check into who his renal physician is, has not seen for probably 2 years. PVD - s/p 2016 left fem-pop bypass. - s/p left great toe amputation. - cont ASA, start atorvastatin - feet warm, no wounds. HTN - hold home hydralazine and lisinopril in order to use other meds to control HR - cont metoprolol tartrate 25mg QID (home dose metorpolol succinate 100mg po daily). - cont Cardizem gtt for now. DMT2 - FBS and 2 hr pc - gave Levimir 15mg last night for BS 180 last night. (he takes it BID) - did not restart home humalog since NPO. CKD Stage 2 - monitor Cr. Bad tooth on left side of mouth for the last month. - states he plans to go to the dentist but concerned about the cost Chinchilla's Palsy. 09/28/17 - FERNIE without thrombus, DCCV unsuccessful yesterday, see report - EF 10-15%, medical management - Rate remains elevated in the 120-130s. - Start diltiazem IR 60mg Q6h, and wean drip as able - Increase diltiazem to 90mg in 6 hours if rate is consistently >100 - Continue diuresis with Bumex drip - monitor renal and electrolytes - chest x-ray in the am - Hospital Course Summary Disclaimer: The visit summary below is not to be considered part of the above Progress Note.
[2017-09-28] MEDS: DOCUSATE SODIUM 100 MG CAPSULE PO SCH (16:16)
[2017-09-28] MEDS: AMIODARONE 900 MG in NS 500ml 500 ML IV SCH (16:41)
--- NOTE | 2017-09-28 18:45 | Pharmacy Consult ---
Pharmacy Consult-Heparin - Laboratory Information Heparin Plt Count 215 T/MM3 (130-400) 09/28/17 04:18 APTT 37.7 SEC (24-36) H 09/28/17 17:08 HEPARIN DRIP: PTT only increased to 37.7, from 37.1 earlier today. That was after a 7,000 unit bolus + increasing the drip to 1600 units/hr. So - will rebolus again with 7,000 units now, increase drip again to 1880 units/ hr (47 ml/hr). Will recheck PTT. Pt will have had a total of 23,000 units heparin bolus. Drip running at fast rate. Will watch PTT closely. Recheck platelets as well. Thank you.
[2017-09-28] MEDS: GABAPENTIN 300 MG CAPSULE PO SCH (20:43)
[2017-09-29] MEDS: DiltiaZEM IR 60 MG TABLET PO SCH ×5 (01:54→23:37)
[2017-09-29] MEDS: METOPROLOL 5mg/5ml INJECTION IVP SCH ×4 (03:09→20:30)
[2017-09-29] MEDS: BUMETANIDE IV SCH (03:43)
[2017-09-29] MEDS: DiltiaZEM Drip 125 MG in NS 125 ML IV SCH (07:08)
[2017-09-29] MEDS: OMEPRAZOLE 20 MG CAPSULE PO SCH (07:08)
[2017-09-29] MEDS ORDERED: HEPARIN 1,000unit/ml INJECTION 10ml IVP ONE (07:30)
--- NOTE | 2017-09-29 08:28 | XRay Report ---
Indication: dyspnea PROCEDURE: XR chest 1V: Encounter: Initial Comparison: September 27, 2017 Findings: Right PICC line remains in stable position. Increasing airspace consolidation in the left upper lobe. Patchy bilateral areas of airspace disease elsewhere that are stable. No pneumothorax or effusion. Heart size and mediastinal contours are stable. Pulmonary vascularity is indistinct. Impression: Worsening airspace consolidation in the left upper lobe. .
[2017-09-29] MEDS: INSULIN DETEMIR 100unit/ml INJECTION SQ SCH ×2 (08:36→20:47)
[2017-09-29] MEDS: INSULIN ASPART 100unit/ml INJECTION SQ SCH ×2 (08:36→17:38)
[2017-09-29] MEDS: HEPARIN DRIP 20,000 UNIT/500 ML BAG IV SCH (08:37)
[2017-09-29] MEDS: ASPIRIN 325 MG TABLET PO SCH (08:38)
[2017-09-29] MEDS: HYDRALAZINE 25 MG TABLET PO SCH ×3 (08:38→17:38)
[2017-09-29] MEDS: GABAPENTIN 100 MG CAPSULE PO SCH (08:38)
[2017-09-29] MEDS: DOCUSATE SODIUM 100 MG CAPSULE PO SCH (08:38)
--- NOTE | 2017-09-29 09:45 | Pharmacy Consult ---
Pharmacy Consult-Heparin - Laboratory Information Heparin Plt Count 215 T/MM3 (130-400) 09/29/17 04:15 APTT 46.9 SEC (24-36) H 09/29/17 04:15 - Consult Information HEPARIN THERAPY: Day 2 62yo M presenting with A. Fib with RVR, NSTEMI. Multiple comorbidities: T2DM, COPD, HTN, CKD stage 2, Hyperlipidemia, etc. Heparin was started 09/26 evening with Bolus 4,000 units, Drip at 1000 units/hr. PTT 09/29@ 0415 = 46.5 Gave a bolus of 4,500 units. Increased drip to 2,100 units/hr (52.5 ml/hr). Plt count continues WNL. Repeating PTT this afternoon at 1700 along with a plt count. Thank you for the Protocol, Jose Elias Bangura, Pharmacist.
[2017-09-29] MEDS: SALINE FLUSH 10ml SYRINGE IVF PRN (10:56)
[2017-09-29] MEDS: MAGNESIUM SULFATE 1gm PREMIX 1 GM/100 ML BAG IV SCH ×2 (10:56→11:55)
--- NOTE | 2017-09-29 11:15 | Cardiology Progress Note ---
Subjective Principal diagnosis: dyspnea Interval history: Jordon is seen in follow up for A Fib with RVR, NSTEMI. He converted to SR around 2015 last evening. He denies chest pain or pressure. Exam Vital signs: Temperature 98.8 F 09/29/17 08:00 Pulse Rate 68 09/29/17 10:30 Respiratory Rate 16 09/29/17 10:41 Blood Pressure 107/65 09/29/17 10:30 Pulse Oximetry 92 09/29/17 10:41 Inpatient Medications: Generic Name Dose Route Start Last Admin Trade Name Freq PRN Reason Stop Dose Admin Acetaminophen 1,300 mg 09/27/17 00:17 09/28/17 11:18 Tylenol Arthritis 650 Mg Sr PO 1,300 mg Q8H PRN Administration Pain Aspirin 325 mg 09/27/17 09:00 09/29/17 08:38 Asa PO 325 mg DAILY LINDA Administration Chlorpheniramine Maleate 4 mg 09/27/17 11:45 Chlor-Trimeton PO PRN PRN For allergic rhinitis Dextromethorphan Polistirix 30 mg 09/27/17 11:46 Delsym Ext-Release PO Q12H PRN For cough Diltiazem HCl 60 mg 09/28/17 12:30 09/29/17 07:08 Cardizem Ir 60 Mg Tab PO 60 mg Q6H LINDA Administration Docusate Sodium 100 mg 09/28/17 16:15 09/29/17 08:38 Colace PO 100 mg DAILY LINDA Administration Gabapentin 100 mg 09/27/17 09:00 09/29/17 08:38 Neurontin PO 100 mg QAM LINDA Administration Gabapentin 300 mg 09/27/17 21:00 09/28/17 20:43 Neurontin PO 300 mg HS LINDA Administration Hydralazine HCl 50 mg 09/28/17 08:00 09/29/17 08:38 Apresoline PO 50 mg TIDWM LINDA Administration Heparin Sodium (Porcine) 20,000 unit in 500 mls @ 52.5 mls/hr 09/26/17 19:54 09/29/17 10:00 Heparin Drip IV 52.5 mls/hr .Q9H32M LINDA 52.5 mls/hr Titration Protocol Diltiazem HCl 125 mg/ Sodium 125 mls @ 5 mls/hr 09/26/17 21:30 09/29/17 07:08 Chloride IV Not Given .Q24H LINDA Protocol Amiodarone HCl 900 mg/ Sodium 500 mls @ 16.66 mls/hr 09/27/17 00:53 09/29/17 10:00 Chloride IV 0.49 mg/min .Q24H LINDA 16.6 mls/hr Infusion 0.5 MG/MIN Bumetanide 25 mg/ IV Solution 100 mls @ 4 mls/hr 09/27/17 15:30 09/29/17 10: 00 IV 1 mg/hr .Q24H LINDA 4 mls/hr Infusion 1 MG/HR Magnesium Sulfate/Dextrose 1 gm in 100 mls @ 100 mls/hr 09/29/17 10:33 10:56 Mag Sulf 1gm Premix IV 09/29/17 12:32 100 mls/hr Q1H LINDA Administration Insulin Aspart 15 unit 09/27/17 08:00 09/29/17 08:36 Novolog SQ 15 unit BIDWM LINDA Administration Insulin Detemir 15 unit 09/27/17 09:00 09/29/17 08:36 Levemir SQ 15 unit BID LINDA Administration Metoprolol Tartrate 5 mg 09/27/17 00:15 09/29/17 08:39 Lopressor IVP Not Given Q6HR LINDA Metoprolol Tartrate 25 mg 09/27/17 08:00 09/29/17 08:38 Lopressor PO 25 mg WMHS LINDA Administration Nitroglycerin 0.4 mg 09/27/17 01:39 Nitrostat SL Q5MIN3 PRN Chest pain Omeprazole 20 mg 09/27/17 06:30 09/29/17 07:08 Prilosec PO 20 mg ACB LINDA Administration Ondansetron HCl 4 mg 09/27/17 01:39 Zofran IVP Q6H PRN Nausea &/or vomiting Potassium Chloride 20 meq 09/27/17 17:30 09/29/17 08:39 K-Dur 20 Meq Tablet PO 20 meq TIDWM LINDA Administration Sodium Chloride 10 - 80 ml 09/26/17 18:36 09/29/17 10:56 Iv Flush IVF 20 ml PRN PRN Administration Flushing Zolpidem Tartrate 5 mg 09/28/17 05:15 Ambien PO HS PRN Insomnia Discontinued Medications Generic Name Dose Route Start Last Admin Trade Name Juanjoq PRN Reason Stop Dose Admin Amiodarone HCl 150 mg 09/26/17 19:52 09/27/17 07:15 Amiodarone IV 09/26/17 19:53 Not Given O ONE Amiodarone HCl 150 mg 09/27/17 00:16 09/27/17 00:29 Amiodarone IV 09/27/17 00:17 150 mg O ONE Administration Bumetanide 2 mg 09/27/17 14:24 09/27/17 15:02 Bumex 1 Mg/4 Ml Inj. IVP 09/27/17 14:25 2 mg O ONE Administration Diltiazem HCl 20 mg 09/26/17 18:57 09/26/17 19:04 Cardizem 25 Mg Inj IVP 09/26/17 18:58 20 mg O ONE Administration Diltiazem HCl 25 mg 09/26/17 19:24 09/26/17 19:33 Cardizem 25 Mg Inj IVP 09/26/17 19:25 25 mg O ONE Administration Furosemide 40 mg 09/26/17 21:30 09/26/17 21:27 Lasix 40 Mg/4 Ml IVP 40 mg O LINDA Administration Furosemide 40 mg 09/27/17 06:30 09/27/17 06:58 Lasix 40 Mg/4 Ml IVP 09/27/17 06:31 40 mg O ONE Administration Furosemide 40 mg 09/27/17 17:00 Lasix 40 Mg/4 Ml IVP Q8HR LINDA Heparin Sodium (Beef Lung) 4,000 unit 09/26/17 19:52 09/26/17 20:07 Heparin Bolus IVP 09/26/17 19:53 4,000 unit O ONE Administration Heparin Sodium (Beef Lung) 5,000 unit 09/27/17 23:49 09/27/17 23:56 Heparin Bolus IVP 09/27/17 23:50 5,000 unit O ONE Administration Heparin Sodium (Beef Lung) 7,000 unit 09/28/17 09:00 09/28/17 09:08 Heparin Bolus IVP 09/28/17 09:01 7,000 unit O ONE Administration Heparin Sodium (Beef Lung) 7,000 unit 09/28/17 18:45 09/28/17 19:32 Heparin Bolus IVP 09/28/17 18:46 7,000 unit O ONE Administration Heparin Sodium (Beef Lung) 4,500 unit 09/29/17 07:30 09/29/17 08:37 Heparin Bolus IVP 09/29/17 07:31 4,500 unit O ONE Administration Heparin Sodium (Porcine) 1 each 09/27/17 22:36 09/28/17 00:22 Pharmacy Consult - Heparin 09/27/17 22:37 1 each O ONE Administration Hydralazine HCl 50 mg 09/28/17 05:21 09/28/17 05:33 Apresoline PO 09/28/17 05:22 Not Given O ONE Sodium Chloride 1,000 mls @ 999.9 mls/hr 09/26/17 18:59 09/26/17 19:45 Normal Saline IV 09/26/17 19:58 Infused .Q1H ONE Infusion Amiodarone HCl 450 mg/ Sodium 250 mls @ 33.33 mls/hr 09/26/17 19:54 09/27/17 07:01 Chloride IV 09/27/17 01:54 Not Given .Q7H31M LINDA 1 MG/MIN Amiodarone HCl 450 mg/ Sodium 250 mls @ 33.33 mls/hr 09/27/17 00:53 09/27/17 09:00 Chloride IV 09/27/17 06:53 Infused .Q7H31M LINDA Infusion 1 MG/MIN Non-Formulary Medication 2 tab 09/27/17 00:17 Chlorpheniramine/Dextromethorp [Coricidin Hbp Cough & Cold Tab] PO PRN PRN PRN orders Non-Formulary Medication 15 unit 09/27/17 09:00 Insulin Detemir [Levemir Flextouch] SQ BID LINDA Non-Formulary Medication 25 unit 09/27/17 09:00 Insulin Lispro-Do Not Expunge SQ BID LINDA Potassium Chloride 40 meq 09/27/17 00:22 09/27/17 00:37 K-Dur 20 Meq Tablet PO 09/27/17 00:23 40 meq O ONE Administration Potassium Chloride 20 meq 09/28/17 05:18 09/28/17 05:33 K-Dur 20 Meq Tablet PO 09/28/17 05:19 Not Given O ONE Potassium Chloride 40 meq 09/29/17 10:32 K-Dur 20 Meq Tablet PO 09/29/17 10:33 O ONE - Constitutional no acute distress, well nourished, cooperative - Routine HEENT Exam Head: Present: normocephalic ENT: Present: mucous membranes moist - Routine Neck Exam Absent: JVD, carotid bruit - Routine Chest/Breast/Axilla Exam Chest wall: Absent: tenderness - Routine Respiratory Exam Present: diminished air movement. Absent: dyspnea - Routine Cardiovascular Exam Present: RRR, no murmur - Routine Abdominal Exam Present: soft, non tender - Routine Extremities Exam Present: no edema - Routine Skin Exam Present: intact, dry, warm - Routine Neurological Exam Present: alert - Routine Psychiatric Exam Present: normal affect - Urinary Catheter Management Urethral Cath placed during this visit: yes Insertion date: 09/27/17 Insertion time: 14:49 Results 09/29/17 04:15 09/29/17 04:15 Coagulation 09/28/17 09/29/17 Range/Units 17:08 04:15 APTT 37.7 H 46.9 H (24-36) SEC CBC 09/29/17 Range/Units 04:15 WBC 16.4 H (4.5-11.0) T/MM3 RBC 3.76 L (4.50-5.90) M/MM3 Hgb 12.1 L (13.5-17.5) GM/DL Hct 38.7 L (41-53) % Plt Count 215 (130-400) T/MM3 Comprehensive Metabolic Panel 09/29/17 Range/Units 04:15 Sodium 145 (136-146) MEQ/L Potassium 3.3 L (3.6-5) MEQ/L Chloride 100 (98-107) MEQ/L Carbon Dioxide 35 H (22-30) MEQ/L BUN 48.0 H (9-20) MG/DL Creatinine 2.0 H D (0.8-1.5) mg/dL Glucose 214 H (75-110) MG/DL Calcium 6.7 L (8.4-10.2) MG/DL Intake and Output 09/28/17 09/29/17 09/29/17 22:59 06:59 14:59 Intake Total 826.206 / 294.397 8663.633 / 1236.633 442.400 / 442.400 Output Total 1025 / 1025 3300 / 3300 780 / 780 Balance -198.794 / -198.794 -2063.367 / -2063.367 -337.600 / -337.600 Intake: IV 826.206 / 826.206 516.633 / 516.633 322.400 / 322.400 Amiodarone 900 mg In NS 500ml 88.456 / 88.456 83.000 / 83.000 116.2 / 116.2 500 ml @ 0.5 MG/MIN 16.66 mls/ hr IV .Q24H LINDA Rx#:[id number] Bumetanide Inj 25 mg In 48 / 48 41.466 / 41.466 16 / 16 Container,Empty 100 ml @ 1 MG/ HR 4 mls/hr IV .Q24H LINDA Rx#: [id number] DiltiaZEM Drip 125 mg In Ns 125 189.75 / 189.75 35.75 / 35.75 ml @ 5 mls/hr IV .Q24H LINDA Rx# :[id number] Heparin Drip 20,000 unit In 500 500.000 / 500.000 356.417 / 356.417 190.200 / 190.200 ml @ 52.5 mls/hr IV .Q9H32M LINDA Rx#:[id number] Oral 720 / 720 120 / 120 Output: Urine Amount (Catheter) 1025 / 1025 3300 / 3300 780 / 780 Other: Urine Appearance Clear Clear Urine Color Dark Yellow Pale Yellow # Voids 1,100 Weight 283 lb 4.704 oz Patient Weight 09/30/17 06:59 Weight 283 lb 4.704 oz - Imaging and Cardiology Imaging & Cardiology Narrative: Date of Exam: 09/29/17 Ordering Provider: Mahi Dailey APRN Type of Exam(s): XR chest 1V Reason for Exam(s): dyspnea Indication: dyspnea PROCEDURE: XR chest 1V: Encounter: Initial Comparison: September 27, 2017 Findings: Right PICC line remains in stable position. Increasing airspace consolidation in the left upper lobe. Patchy bilateral areas of airspace disease elsewhere that are stable. No pneumothorax or effusion. Heart size and mediastinal contours are stable. Pulmonary vascularity is indistinct. Impression: Worsening airspace consolidation in the left upper lobe. 09/29/17 15:39 Assessment and Plan - Assessment and Plan (1) Atrial fibrillation with RVR Current visit: Yes Status: Acute - Assessment and Plan 09/27/17 A-fib w RVR: new onset likely 3 days ago. - HR up to 180 on admit. - Received Cardizem boluses and Cardizem gtt at 15 mg/hr and HR 160's - Received metoprolol 5mg q 6 hrs with parameters and HR came down to 140's. - Started amiodarone bolus and gtt per protocol and HR decreased 100's - 120' s - Heparin gtt for anticoagulation. - metoprolol tartrate 25mg po QID (takes metoprolol succinate 100mg daily at home) - Replaced K+, check mag and TSH in am. . - NPO for possible RADHA/DCCV NSTEMI - likely due to A-fib w RVR - Trop 0.18 - check serial trop. Mild CAD per [address] Jean-Baptiste - stenosis no greater than 30% ( report on chart). - cont ASA, start statin. Hx NICM, DCM - 07/08/2014 Heart cath: EF 25%, - 10/16/2014 echo: EF 50-55%, LVH, DD, BAD, RVE, mild MR/TR/KS, PAP 39. - with SOB, SAHU, orthopnea, - BNP 9960 - lasix 40mg IV x1 tonight - which improved symptoms. will likely need more tomorrow. - takes torsemide at home as prescribed by renal - on hold for now. - echo to evaluate structure and function of heart. - need to check into who his renal physician is, has not seen for probably 2 years. PVD - s/p 2016 left fem-pop bypass. - s/p left great toe amputation. - cont ASA, start atorvastatin - feet warm, no wounds. HTN - hold home hydralazine and lisinopril in order to use other meds to control HR - cont metoprolol tartrate 25mg QID (home dose metorpolol succinate 100mg po daily). - cont Cardizem gtt for now. DMT2 - FBS and 2 hr pc - gave Levimir 15mg last night for BS 180 last night. (he takes it BID) - did not restart home humalog since NPO. CKD Stage 2 - monitor Cr. Bad tooth on left side of mouth for the last month. - states he plans to go to the dentist but concerned about the cost Chinchilla's Palsy. 8/2/18 - RADHA without thrombus, DCCV unsuccessful yesterday, see report - EF 10-15%, medical management - Rate remains elevated in the 120-130s. - Start diltiazem IR 60mg Q6h, and wean drip as able - Increase diltiazem to 90mg in 6 hours if rate is consistently >100 - Continue diuresis with Bumex drip - monitor renal and electrolytes - chest x-ray in the am 09/29/17 - Converted to SR last evening, Continue Metoprolol, continue Cardizem IR until 0030 dose then DC - Cardizem CD 240 daily in am, Amiodarone 200mg daily, Eliquis 5mg BID - Stop Heparin and Amiodarone drips - CXR: Worsening airspace consolidation in the left upper lobe. - WBC up to 16.4, continues to cough - Consult hospitalist for further evaluation - K+ 3.3/ Mag 1.5, replace to keep K+ >4.0, Mag >2.0 - BNP pending Hospital Course Summary Disclaimer: The visit summary below is not to be considered part of the above Progress Note.
--- NOTE | 2017-09-29 13:47 | Consult Note ---
Consult Information - Data of Consult Consult date: 09/29/17 Requesting Physician: Abhishek Church MD Primary Care Provider: Ledy Benites APRN Family Provider: Ledy Benites APRN - Consult Narrative Reason for consult: Hypoxia History of present illness: Mr Rosa is a 62-year-old male who was originally admitted under cardiology services on 12/27/17 with new onset atrial fibrillation with rapid ventricular rate. He was admitted under Dr. Church who is covering for Dr. Jean-Baptiste's patients. He was admitted to the CCU and placed on Cardizem drip. Originally was found to be hypoxic with room air saturation of 87% and requiring 2 liters of oxygen by nasal cannula. On 09/26/17. Over the course of the next 3 days his oxygen demands have continued to increase. On 09/27 he underwent a RADHA was synchronized cardioversion, which was unfortunately unsuccessful. Continued on amiodarone drip and has now converted to sinus rhythm. He continues to remain on amiodarone drip, Bumex drip, heparin drip. By today, his oxygen demands have increased to 18 liters of high flow oxygen via Vapotherm to maintain saturations. Hospitalist services were consult could for evaluation and recommendations. Past Medical History Medical History Updates: Type II diabetes. Coronary artery disease. Chronic kidney disease-stage IV. Peripheral vascular disease. Hypertension. Anxiety/ depression. Dyslipidemia. History of pulmonary hypertension. Systolic congestive heart failure. History of Chinchilla's palsy 2. History of tobacco use Surgical History: Heart cath-06/2014-Dr. Jean-Baptiste. 07/08/2017 heart cath: EF 25%, severe global hypokinesis, LM, LAD, left circ, marginals, diagonals, and RCA all free of significant lesions with minor irregularities and stenosis no greater than 30%. 11/03/2015 AOR: Left SFA occluded prox with reconstitutions mid pop. Left tibial 80%, left anterior tibial and peroneal patent. Right SFA occluded prox with reconstitusion pop atery, infra po patent. Unsuccessful attempt to recanulize the left SFA. He was referred to Dr. Gates, vascular surgeon. 10/16/2014 echo: EF 50 - 55%, LVH, DD, BAD, RVE, mild MR, mild TR, mild CT, PAP 39. 11/06/2015 Left great toe amputated. Family History: Father-diabetes, hypertension, congestive heart failure, cardiac bypass, renal failure Mother-hypertension. Brother-diabetes Sister-hypertension, diabetes Family History: As Above - Social History Smoking status: Former smoker (smoked 2 PPD for 37 yrs. quit 5 yrs ago.) Packs per day: 2 Packs-years: 37 Substance use type: does not use Alcohol intake frequency: does not drink Housing: house Household members: family Current residence: Apartment/Private Home Social history: Primary care provider-Ledy Benites APRN-[facility] Reports no DPOA Review of Systems All systems PM: 10-point ROS was reviewed, no additional remarkable complaints except - Respiratory Respiratory: Present: dyspnea Medications Home Medications Medication Instructions Recorded Confirmed Type Hydralazine HCl 50 mg PO TIDWM #0 tab 11/03/15 09/26/17 History Insulin Detemir [Levemir Flextouch] 15 unit SQ BID #0 syringe 11/03/15 09/26/17 History Acetaminophen [Acetaminophen ER] 1,300 mg PO Q8H PRN 09/26/17 09/26/17 History Aspirin 325 mg PO DAILY 09/26/17 09/26/17 History Chlorpheniramine/Dextromethorp 2 tab PO PRN PRN 09/26/17 09/26/17 History [Coricidin Hbp Cough & Cold Tab] Gabapentin 300 mg PO HS 09/26/17 09/26/17 History Gabapentin [Neurontin] 100 mg PO QAM 09/26/17 09/26/17 History Insulin Lispro [HumaLOG] 25 unit SQ BID 09/26/17 09/26/17 History Lisinopril [Prinivil] 5 mg PO DAILY 09/26/17 09/26/17 History Metoprolol Succinate [Toprol Xl] 100 mg PO DAILY 09/26/17 09/26/17 History Multivit-Min/FA/Lycopen/Lutein 1 tab PO DAILY 09/26/17 09/26/17 History [Centrum Silver Tablet] Torsemide [Demadex] 20 mg PO DAILY 09/26/17 09/26/17 History Allergies Allergy/AdvReac Type Severity Reaction Status Date / Time No Known Allergies Allergy Verified 09/26/17 18:33 Exam Vital Signs: Temperature 97.0 F 09/29/17 12:00 Pulse Rate 69 09/29/17 13:15 Respiratory Rate 31 H 09/29/17 12:00 Blood Pressure 108/63 09/29/17 12:00 Pulse Oximetry 91 09/29/17 12:00 Height/Weight/BMI: Height 1.85 m Weight 128.5 kg Body Mass Index 37.0 - Constitutional Present: no acute distress, well nourished, well developed - Routine HEENT Exam Eye: Present: EOMI ENT: Present: mucous membranes moist, dentition normal - Routine Respiratory Exam Present: diminished air movement. Absent: wheezes - Routine Cardiovascular Exam Present: RRR, S1, S2. Absent: murmur - Routine Abdominal Exam Present: soft, normoactive bowel sounds, non distended. Absent: tenderness - Routine Extremities Exam Present: pulses intact - Routine Back/Spine/Pelvis Exam Back/Spine: Present: full ROM - Routine Skin Exam Present: intact, dry, warm - Routine Neurological Exam Present: alert, oriented X3, CN II-XII intact, moving all extremities - Routine Psychiatric Exam Present: normal affect, normal thought process, cooperative Results - Labs CBC & Chem 7: 09/29/17 04:15 09/29/17 04:15 Assessment and Plan (1) Acute respiratory failure with hypoxia Current visit: Yes Status: Acute Assessment and Plan: Impression Acute respiratory failure with hypoxia- Currently on Vapotherm at 18L New onset A-fibulation with RVR- Now converted Leukocytosis Hypokalemia Hypomagnesium Coronary artery disease Chronic kidney disease Type II diabetes Peripheral Vascular disease Hypertension Dyslipidemia Congestive heart failure History of tobacco use Chinchilla's palsy Plan Continued cardiac orders and care as per Dr Church- covering for Dr Jean-Baptiste Continues on amiodarone drip currently. Currently on Bumex drip for diuresing. Monitor weight, Urine output, and renal function carefully Obtain Sputum culture. Encourage use of Acapella Could consider treating with Antibiotic coverage for pulmonary given persistent Leukocytosis Mild hypokalemia- Given PO supplementation 40 meq today Hypomagnesium was treatment with IV magnesium supplementation 2 gm this morning. Recheck Tomorrow Continue on Vapotherm at 18 L. Exact etiology of hypoxia is unclear, Likely multifactorial. May want to consider Pulmonary consultation. Recheck CBC, BMP, magnesium tomorrow morning to follow blood counts, renal function and electrolytes Discussed case with attending, Dr. Luevano - Physician Narrative Physician: Ana Luevano MD Narrative: Date: 09/29/17 Time: 1510 I have independently evaluated and examined this patient. I reviewed the chart, the patient's history, and the CONCESSIONIST/PA's documented findings as above. We discussed and formulated the assessment and plan as above with additions as below: Mr. Rosa was hospitalized with atrial fibrillation-RVR as described above. He developed progressive pulmonary edema and has been diuresed for several days. He is returned to sinus rhythm on amiodarone drip. Net fluid balance is negative by 3 L and weight is roughly stable from admission depending on which admission weight is used for baseline. Chest x-ray on 09/27 demonstrated increasing edema compared to 09/26 and chest x-ray today demonstrates worsening air space consolidation in the left upper lobe with patchy air space disease bilaterally. ProBNP has dropped from 9960 on admission to 4960 this morning in conjunction with diuresis. The patient required an FiO2 of 100% initially and has been titrated to 55% on Vapotherm but continues to require supplemental oxygen continually. White count has remained modestly elevated throughout the hospitalization and has been slightly higher yesterday and today than it was initially. Mr. Rosa denies fever, sputum production, or pleuritic pain. He denies chest pain, or palpitations. He has known dental disease but denies active dental pain or inflammation at present. NAD, alert, responds to questions appropriately although seems slightly dull Conjunctiva clear, oropharynx without evidence of acute inflammatory change along the left upper or lower gumlines, carries present; mild whitish plaque on tongue Respirations nonlabored, decreased airflow bilaterally, no wheezing or crackles appreciated Abdomen obese, soft, nontender Extremities with trace edema WBC 16.4-no differential Chest x-ray reviewed by myself revealing patchy infiltrates bilaterally more localized in the left upper lobe and right lower lobe, cardiomegaly, no pleural effusions RADHA-ejection fraction 10-15%, mild concentric LVH, moderate-severe MR, no evidence of LA thrombus or mass. Overall oxygen demand appears to have improved over the past 48 hours and I would anticipate further improvement with continued diuresis and following conversion to sinus rhythm last night. Chest x-ray questions localized areas of consolidation although the patient does not have symptoms that suggest pneumonia nor has he been febrile during hospitalization. White count is modestly elevated but may reflect stress response. At present I would continue diuresis, reassess chest x-ray in a.m., attempt to obtain sputum culture per RT , and will screen procalcitonin in a.m. Blood sugars are elevated fairly consistently throughout the day-I've adjusted Lantus slightly and added corrective scale insulin. Thank you for allowing us to participate in Mr. Rosa's care. Discussed with cardiology. Hospital Course Summary Disclaimer: The visit summary below is not to be considered part of the above Progress Note. Hospital Course: Impression Acute respiratory failure with hypoxia- Currently on Vapotherm at 18L New onset A-fibulation with RVR- Now converted Leukocytosis Hypokalemia Hypomagnesium Coronary artery disease Chronic kidney disease Type II diabetes Peripheral Vascular disease Hypertension Dyslipidemia Congestive heart failure History of tobacco use Chinchilla's palsy Plan Continued cardiac orders and care as per Dr Church- covering for Dr Jean-Baptiste Continues on amiodarone drip currently. Currently on Bumex drip for diuresing. Monitor weight, Urine output, and renal function carefully Obtain Sputum culture. Encourage use of Acapella Could consider treating with Antibiotic coverage for pulmonary given persistent Leukocytosis Mild hypokalemia- Given PO supplementation 40 meq today Hypomagnesium was treatment with IV magnesium supplementation 2 gm this morning. Recheck Tomorrow Continue on Vapotherm at 18 L. Exact etiology of hypoxia is unclear, Likely multifactorial. May want to consider Pulmonary consultation. Recheck CBC, BMP, magnesium tomorrow morning to follow blood counts, renal function and electrolytes Discussed case with attending, Dr. Luevano
[2017-09-29] MEDS: AMIODARONE 200 MG TABLET PO SCH (14:57)
[2017-09-29] MEDS: INSULIN ASPART 100unit/ml INJECTION SQ PRN (20:46)
[2017-09-29] MEDS: GABAPENTIN 300 MG CAPSULE PO SCH (20:47)
[2017-09-29] MEDS: APIXABAN 5 MG TABLET PO SCH (20:47)
[2017-09-30] MEDS: BUMETANIDE IV SCH (05:21)
[2017-09-30] MEDS: METOPROLOL 5mg/5ml INJECTION IVP SCH ×2 (05:22→10:21)
[2017-09-30] MEDS: OMEPRAZOLE 20 MG CAPSULE PO SCH (05:33)
[2017-09-30] MEDS: INSULIN ASPART 100unit/ml INJECTION SQ SCH ×2 (09:57→17:37)
[2017-09-30] MEDS: INSULIN DETEMIR 100unit/ml INJECTION SQ SCH ×2 (09:58→20:58)
[2017-09-30] MEDS: AMIODARONE 200 MG TABLET PO SCH (09:59)
[2017-09-30] MEDS: GABAPENTIN 100 MG CAPSULE PO SCH (10:00)
[2017-09-30] MEDS: ASPIRIN 325 MG TABLET PO SCH (10:00)
[2017-09-30] MEDS: APIXABAN 5 MG TABLET PO SCH ×2 (10:00→20:58)
[2017-09-30] MEDS: DOCUSATE SODIUM 100 MG CAPSULE PO SCH (10:01)
[2017-09-30] MEDS: HYDRALAZINE 25 MG TABLET PO SCH ×3 (10:19→17:39)
--- NOTE | 2017-09-30 14:00 | Cardiology Progress Note ---
Subjective Principal diagnosis: dyspnea Interval history: Jordon is seen in follow up for A Fib with RVR, NSTEMI. He converted to SR around 2014 on evening. Pt is lying in bed. Awake, alert and oriented x 3. States his breathing is better, unchanged from yesterday. Denies CP, palpitations, n/v, diaphoresis or dizziness. Exam Vital signs: Temperature 97.1 F 09/30/17 12:00 Pulse Rate 73 09/30/17 12:45 Respiratory Rate 22 09/30/17 12:45 Blood Pressure 123/66 09/30/17 12:00 Pulse Oximetry 90 09/30/17 12:45 Inpatient Medications: Generic Name Dose Route Start Last Admin Trade Name Freq PRN Reason Stop Dose Admin Acetaminophen 1,300 mg 09/27/17 00:17 09/29/17 21:21 Tylenol Arthritis 650 Mg Sr PO 1,300 mg Q8H PRN Administration Pain Amiodarone HCl 200 mg 09/29/17 14:15 09/30/17 09:59 Pacerone PO 200 mg DAILY LINDA Administration Apixaban 5 mg 09/29/17 21:00 09/30/17 10:00 Eliquis PO 5 mg BID LINDA Administration Aspirin 325 mg 09/27/17 09:00 09/30/17 10:00 Asa PO 325 mg DAILY LINDA Administration Chlorpheniramine Maleate 4 mg 09/27/17 11:45 Chlor-Trimeton PO PRN PRN For allergic rhinitis Dextromethorphan Polistirix 30 mg 09/27/17 11:46 Delsym Ext-Release PO Q12H PRN For cough Diltiazem HCl 240 mg 09/30/17 09:00 09/30/17 10:00 Cardizem Cd 240 Mg PO 240 mg DAILY LINDA Administration Docusate Sodium 100 mg 09/28/17 16:15 09/30/17 10:01 Colace PO 100 mg DAILY LINDA Administration Gabapentin 100 mg 09/27/17 09:00 09/30/17 10:00 Neurontin PO 100 mg QAM LINAD Administration Gabapentin 300 mg 09/27/17 21:00 09/29/17 20:47 Neurontin PO 300 mg HS LINDA Administration Hydralazine HCl 50 mg 09/28/17 08:00 09/30/17 10:19 Apresoline PO 50 mg TIDWM LINDA Administration Bumetanide 25 mg/ IV Solution 100 mls @ 4 mls/hr 09/27/17 15:30 09/30/17 05: 21 IV 1 mg/hr .Q24H LINDA 4 mls/hr Administration 1 MG/HR Insulin Aspart 15 unit 09/27/17 08:00 09/30/17 09:57 Novolog SQ 15 unit BIDWM LINDA Administration Insulin Aspart 1 - 5 unit 09/29/17 15:39 09/29/17 20:46 Novolog SQ 2 unit SS PRN Administration Hyperglycemia Protocol Insulin Detemir 17 unit 09/29/17 21:00 09/30/17 09:58 Levemir SQ 17 unit BID LINDA Administration Metoprolol Tartrate 5 mg 09/27/17 00:15 09/30/17 10:21 Lopressor IVP 5 mg Q6HR LINDA Administration Metoprolol Tartrate 25 mg 09/27/17 08:00 09/30/17 12:21 Lopressor PO 25 mg WMHS LINDA Administration Nitroglycerin 0.4 mg 09/27/17 01:39 Nitrostat SL Q5MIN3 PRN Chest pain Omeprazole 20 mg 09/27/17 06:30 09/30/17 05:33 Prilosec PO 20 mg ACB LINDA Administration Ondansetron HCl 4 mg 09/27/17 01:39 Zofran IVP Q6H PRN Nausea &/or vomiting Potassium Chloride 20 meq 09/27/17 17:30 09/30/17 12:21 K-Dur 20 Meq Tablet PO 20 meq TIDWM LINDA Administration Sodium Chloride 10 - 80 ml 09/26/17 18:36 09/29/17 10:56 Iv Flush IVF 20 ml PRN PRN Administration Flushing Zolpidem Tartrate 5 mg 09/28/17 05:15 Ambien PO HS PRN Insomnia Discontinued Medications Generic Name Dose Route Start Last Admin Trade Name Freq PRN Reason Stop Dose Admin Amiodarone HCl 150 mg 09/26/17 19:52 09/27/17 07:15 Amiodarone IV 09/26/17 19:53 Not Given O ONE Amiodarone HCl 150 mg 09/27/17 00:16 09/27/17 00:29 Amiodarone IV 09/27/17 00:17 150 mg O ONE Administration Bumetanide 2 mg 09/27/17 14:24 09/27/17 15:02 Bumex 1 Mg/4 Ml Inj. IVP 09/27/17 14:25 2 mg O ONE Administration Diltiazem HCl 20 mg 09/26/17 18:57 09/26/17 19:04 Cardizem 25 Mg Inj IVP 09/26/17 18:58 20 mg O ONE Administration Diltiazem HCl 25 mg 09/26/17 19:24 09/26/17 19:33 Cardizem 25 Mg Inj IVP 09/26/17 19:25 25 mg O ONE Administration Diltiazem HCl 60 mg 09/28/17 12:30 09/29/17 23:37 Cardizem Ir 60 Mg Tab PO 09/30/17 00:31 60 mg Q6H LINDA Administration Furosemide 40 mg 09/26/17 21:30 09/26/17 21:27 Lasix 40 Mg/4 Ml IVP 40 mg O LINDA Administration Furosemide 40 mg 09/27/17 06:30 09/27/17 06:58 Lasix 40 Mg/4 Ml IVP 09/27/17 06:31 40 mg O ONE Administration Furosemide 40 mg 09/27/17 17:00 Lasix 40 Mg/4 Ml IVP Q8HR LINDA Heparin Sodium (Beef Lung) 4,000 unit 09/26/17 19:52 09/26/17 20:07 Heparin Bolus IVP 09/26/17 19:53 4,000 unit O ONE Administration Heparin Sodium (Beef Lung) 5,000 unit 09/27/17 23:49 09/27/17 23:56 Heparin Bolus IVP 09/27/17 23:50 5,000 unit O ONE Administration Heparin Sodium (Beef Lung) 7,000 unit 09/28/17 09:00 09/28/17 09:08 Heparin Bolus IVP 09/28/17 09:01 7,000 unit O ONE Administration Heparin Sodium (Beef Lung) 7,000 unit 09/28/17 18:45 09/28/17 19:32 Heparin Bolus IVP 09/28/17 18:46 7,000 unit O ONE Administration Heparin Sodium (Beef Lung) 4,500 unit 09/29/17 07:30 09/29/17 08:37 Heparin Bolus IVP 09/29/17 07:31 4,500 unit O ONE Administration Heparin Sodium (Porcine) 1 each 09/27/17 22:36 09/28/17 00:22 Pharmacy Consult - Heparin MC 09/27/17 22:37 1 each O ONE Administration Hydralazine HCl 50 mg 09/28/17 05:21 09/28/17 05:33 Apresoline PO 09/28/17 05:22 Not Given O ONE Sodium Chloride 1,000 mls @ 999.9 mls/hr 09/26/17 18:59 09/26/17 19:45 Normal Saline IV 09/26/17 19:58 Infused .Q1H ONE Infusion Amiodarone HCl 450 mg/ Sodium 250 mls @ 33.33 mls/hr 09/26/17 19:54 09/27/17 07:01 Chloride IV 09/27/17 01:54 Not Given .Q7H31M LINDA 1 MG/MIN Heparin Sodium (Porcine) 20,000 unit in 500 mls @ 52.5 mls/hr 09/26/17 19:54 09/29/17 14:35 Heparin Drip IV Infused .Q9H32M LINDA Titration Protocol Diltiazem HCl 125 mg/ Sodium 125 mls @ 5 mls/hr 09/26/17 21:30 09/29/17 14:35 Chloride IV Infused .Q24H LINDA Infusion Protocol Amiodarone HCl 900 mg/ Sodium 500 mls @ 16.66 mls/hr 09/27/17 00:53 09/29/17 14:35 Chloride IV Infused .Q24H LINDA Infusion 0.5 MG/MIN Amiodarone HCl 450 mg/ Sodium 250 mls @ 33.33 mls/hr 09/27/17 00:53 09/27/17 09:00 Chloride IV 09/27/17 06:53 Infused .Q7H31M ILNDA Infusion 1 MG/MIN Magnesium Sulfate/Dextrose 1 gm in 100 mls @ 100 mls/hr 09/29/17 10:33 13:00 Mag Sulf 1gm Premix IV 09/29/17 12:32 Infused Q1H LINDA Infusion Insulin Detemir 15 unit 09/27/17 09:00 09/29/17 08:36 Levemir SQ 15 unit BID LINDA Administration Non-Formulary Medication 2 tab 09/27/17 00:17 Chlorpheniramine/Dextromethorp [Coricidin Hbp Cough & Cold Tab] PO PRN PRN PRN orders Non-Formulary Medication 15 unit 09/27/17 09:00 Insulin Detemir [Levemir Flextouch] SQ BID LINDA Non-Formulary Medication 25 unit 09/27/17 09:00 Insulin Lispro-Do Not Expunge SQ BID LINDA Potassium Chloride 40 meq 09/27/17 00:22 09/27/17 00:37 K-Dur 20 Meq Tablet PO 09/27/17 00:23 40 meq O ONE Administration Potassium Chloride 20 meq 09/28/17 05:18 09/28/17 05:33 K-Dur 20 Meq Tablet PO 09/28/17 05:19 Not Given O ONE Potassium Chloride 40 meq 09/29/17 10:32 09/29/17 11:56 K-Dur 20 Meq Tablet PO 09/29/17 10:33 40 meq O ONE Administration - Constitutional no acute distress, well nourished, well developed, cooperative - Routine HEENT Exam Head: Present: normocephalic, atraumatic Eye: Present: EOMI, PERRL ENT: Present: mucous membranes moist - Routine Neck Exam Present: supple, trachea midline. Absent: JVD - Routine Respiratory Exam Present: decreased breath sounds, crackles. Absent: accessory muscle use - Routine Cardiovascular Exam Present: RRR, S1, S2. Absent: no murmur, gallop, rubs, JVD - Routine Abdominal Exam Present: soft, normoactive bowel sounds, non tender - Routine Extremities Exam Present: edema, pulses intact. Absent: cyanosis, clubbing - Routine Skin Exam Present: intact, dry, warm. Absent: rash - Routine Neurological Exam Present: alert, oriented X3, CN II-XII intact, moving all extremities, normal speech - Routine Psychiatric Exam Present: normal affect, normal thought process, cooperative - Urinary Catheter Management Urethral Cath placed during this visit: yes Urethral indwelling: Yes Reason for continuing: Accurate I&O/Aggressive Diuresis Insertion date: 09/27/17 Insertion time: 14:49 Results 09/30/17 04:25 09/30/17 16:09 CBC 09/30/17 Range/Units 04:25 WBC 12.0 H (4.5-11.0) T/MM3 RBC 3.70 L (4.50-5.90) M/MM3 Hgb 12.0 L (13.5-17.5) GM/DL Hct 38.2 L (41-53) % Plt Count 238 (130-400) T/MM3 Neut # (Auto) 9.0 H (1.8-7.7) T/MM3 Lymph # (Auto) 1.6 (1-4.8) T/MM3 [place] # (Auto) 0.9 H (0-0.8) T/MM3 Eos # (Auto) 0.4 (0-0.5) T/MM3 Baso # (Auto) 0.0 (0-0.2) T/MM3 Comprehensive Metabolic Panel 09/30/17 Range/Units 04:25 Sodium 148 H (136-146) MEQ/L Potassium 3.2 L (3.6-5) MEQ/L Chloride 100 (98-107) MEQ/L Carbon Dioxide 37 H (22-30) MEQ/L BUN 45.0 H (9-20) MG/DL Creatinine 2.1 H (0.8-1.5) mg/dL Glucose 110 (75-110) MG/DL Calcium 6.4 L (8.4-10.2) MG/DL Intake and Output 09/29/17 09/30/17 09/30/17 22:59 06:59 14:59 Intake Total 198 / 198 54.867 / 54.867 480 / 480 Output Total 2094 2760 / 2760 1315 / 1315 Balance -1897 / -1897 -2705.133 / -2705.133 -835 / -835 Intake: IV 54.867 / 54.867 Bumetanide Inj 25 mg In 54.867 / 54.867 Container,Empty 100 ml @ 1 MG/ HR 4 mls/hr IV .Q24H [facility] Rx#: [id number] Oral 190 / 190 480 / 480 Output: Urine Amount (Catheter) 2094 2760 / 2760 1315 / 1315 Other: Urine Appearance Clear Clear Urine Color Pale Yellow Yellow Weight 125.9 kg Patient Weight 10/01/17 06:59 Weight 125.9 kg - Imaging and Cardiology Echo: report reviewed EKG results: report reviewed - EKG Interpretation EKG: sinus rhythm Assessment and Plan - Assessment and Plan (1) Atrial fibrillation with RVR Current visit: Yes Status: Resolved (2) NSTEMI (non-ST elevated myocardial infarction) Current visit: Yes Status: Acute (3) Acute respiratory failure Current visit: Yes Status: Acute (4) Coronary artery disease Current visit: Yes Status: Chronic (5) Nonischemic cardiomyopathy Current visit: Yes Status: Chronic (6) Dilated cardiomyopathy Current visit: Yes Status: Chronic (7) Mitral regurgitation Current visit: Yes Status: Chronic (8) Pulmonary hypertension Current visit: Yes Status: Chronic (9) Hypertension Current visit: Yes Status: Chronic (10) Peripheral vascular disease Current visit: Yes Status: Chronic (11) Diabetes Current visit: Yes Status: Chronic (12) Chronic kidney disease Current visit: Yes Status: Chronic (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 - Received Cardizem boluses and Cardizem gtt at 15 mg/hr and HR 160's - Received metoprolol 5mg q 6 hrs with parameters and HR came down to 140's. - Started amiodarone bolus and gtt per protocol and HR decreased 100's - 120' s - metoprolol tartrate 25mg po QID (takes metoprolol succinate 100mg daily at home) - Converted at approximately 2000 on 09/28/17 - TSH 2.93 - Monitor lytes to maintain K>4, Mg>2 - Continue PO Amiodarone and Cardizem - RADHA without thrombus, DCCV unsuccessful on 09/28/2017 - Echo: EF 15-20%, Severe global hypokinesis,, MOSES, LAD, mod-severe MR, dilated IVC, PAP 50-60 - Continue Eliquis 5 mg PO BID NSTEMI - likely due to A-fib w RVR - Trop flat at 0.18 Acute Hypoxic Respiratory Failure - Diuresing well; progressive improvement in oxygenation. - Leukocytosis resolving, no fever or sputum production to suggest active infection. - Initial Gram stain of induced sputum noted, await culture results. - Chest x-ray in a.m. - Managed per medicine Mild CAD per [address] Jean-Baptiste - stenosis no greater than 30% ( report on chart). - cont ASA, BB, and start statin. Hx NICM, DCM - 07/08/2014 Heart cath: EF 25%, - 10/16/2014 echo: EF 50-55%, LVH, DD, BAD, RVE, mild MR/TR/NV, PAP 39. - with SOB, SAHU, orthopnea, - BNP 4960 (9960) - Started on Bumex gtt on 09/27/2017-6kg weight loss - Will stop Bumex gtt and start Bumex 2 mg IV TID - takes torsemide at home as prescribed by renal - on hold for now. - Echo: EF 15-20%, Severe global hypokinesis, MOSES, LAD, mod-severe MR, dilated IVC, PAP 50-60 - Will need routine f/u with nephrology - CXR in the am Mitral Regurgitation - Moderate to Severe per Echo - Medical management Pulmonary Hypertension - Dilated IVC, PAP 50-60 mm Hg per Echo - Medical Management PVD - s/p 2016 left fem-pop bypass. - s/p left great toe amputation. - cont ASA and and start atorvastatin - feet warm, no wounds. HTN - hold home lisinopril in order to use other meds to control HR - cont metoprolol tartrate 25mg QID (home dose metorpolol succinate 100mg po daily). - cont PO Cardizem and Hydralazine DMT2 - FBS and 2 hr pc - Continue Levemir and Novolog CKD Stage 2 - monitor Cr. Bad tooth on left side of mouth for the last month. - states he plans to go to the dentist but concerned about the cost Chinchilla's Palsy. 09/28/17 - RADHA without thrombus, DCCV unsuccessful yesterday, see report - EF 10-15%, medical management - Rate remains elevated in the 120-130s. - Start diltiazem IR 60mg Q6h, and wean drip as able - Increase diltiazem to 90mg in 6 hours if rate is consistently >100 - Continue diuresis with Bumex drip - monitor renal and electrolytes - chest x-ray in the am 09/29/17 - Converted to SR last evening, Continue Metoprolol, continue Cardizem IR until 0030 dose then DC - Cardizem CD 240 daily in am, Amiodarone 200mg daily, Eliquis 5mg BID - Stop Heparin and Amiodarone drips - CXR: Worsening airspace consolidation in the left upper lobe. - WBC up to 16.4, continues to cough - Consult hospitalist for further evaluation - K+ 3.3/ Mag 1.5, replace to keep K+ >4.0, Mag >2.0 - BNP pending 09/30/17 - Remains in SR - Bumex gtt stopped, started Bumex 2mg IV TID - WBC trending down - CXR in the am Hospital Course Summary Disclaimer: The visit summary below is not to be considered part of the above Progress Note. Hospital Course: Impression Acute respiratory failure with hypoxia- Currently on Vapotherm at 18L New onset A-fibulation with RVR- Now converted Leukocytosis Hypokalemia Hypomagnesium Coronary artery disease Chronic kidney disease Type II diabetes Peripheral Vascular disease Hypertension Dyslipidemia Congestive heart failure History of tobacco use Chinchilla's palsy Plan Continued cardiac orders and care as per Dr Church- covering for Dr Jean-Baptiste Continues on amiodarone drip currently. Currently on Bumex drip for diuresing. Monitor weight, Urine output, and renal function carefully Obtain Sputum culture. Encourage use of Acapella Could consider treating with Antibiotic coverage for pulmonary given persistent Leukocytosis Mild hypokalemia- Given PO supplementation 40 meq today Hypomagnesium was treatment with IV magnesium supplementation 2 gm this morning. Recheck Tomorrow Continue on Vapotherm at 18 L. Exact etiology of hypoxia is unclear, Likely multifactorial. May want to consider Pulmonary consultation. Recheck CBC, BMP, magnesium tomorrow morning to follow blood counts, renal function and electrolytes Discussed case with attending, Dr. Luevano
--- NOTE | 2017-09-30 14:14 | Progress Note ---
- Date 09/30/17 Subjective: Mr. Rosa was seen late this morning. He reported ongoing dyspnea but denied cough or sputum production. He isn't needing as much O2 today and is more comfortable overall. He denied chest pain, palpitations, nausea or vomiting , or fevers. He is off Vapotherm at the time of my assessment and on 8 L supplemental oxygen. Objective Vital signs: Temperature 97.1 F 09/30/17 12:00 Pulse Rate 73 09/30/17 12:45 Respiratory Rate 22 09/30/17 12:45 Blood Pressure 123/66 09/30/17 12:00 Pulse Oximetry 90 - 4L 09/30/17 12:45 I/O 1303/6015 Weight down 6 kg in the past 2 days NAD, alert, resting comfortably with head of the bed elevated approximately 30 to my assessment Conjunctiva clear, sclera anicteric Respirations nonlabored, good airflow, crackles 2/3 up posterior lung jacobsen Regular rhythm, S1-S2 Abdomen soft, obese, nontender, bowel sounds present although diminished Extremities with trace edema Rhythm: Normal Sinus Rhythm Height/Weight/BMI: Height 1.85 m Weight 125.9 kg Body Mass Index 37.0 Results - Labs CBC & Chem 7: 09/30/17 04:25 09/30/17 04:25 Labs: Calcium 6.4, magnesium 1.9 Microbiology Results: Microbiology 09/29/17 16:00 Sputum, Expectorated Gram Stain - moderate WBCs, moderate epithelial cells, many gram-positive cocci, few gram-positive rods 09/29/17 16:00 Sputum, Expectorated Sputum Culture - Final Assessment and Plan (1) Acute respiratory failure with hypoxia Current visit: Yes Status: Acute Assessment and Plan: Impression Acute respiratory failure with hypoxia- Currently on Vapotherm at 18L New onset A-fibulation with RVR- Now converted Leukocytosis Hypokalemia Hypomagnesium Coronary artery disease Chronic kidney disease Type II diabetes Peripheral Vascular disease Hypertension Dyslipidemia Congestive heart failure History of tobacco use Chinchilla's palsy Plan Diuresing well with Bumex drip; progressive improvement in oxygenation. Leukocytosis resolving, no fever or sputum production to suggest active infection. Initial Gram stain of induced sputum noted, await culture results. Remains in sinus rhythm. Additional potassium given today-recheck later today. Calcium incidentally noted to be low-check albumin tomorrow to determine if related to hypoalbuminemia. Blood sugars remain elevated, Lantus adjusted yesterday. Continue to monitor. Chest x-ray in a.m. DVT Prophylaxis: Eliquis GI Prophylaxis: Omeprazole Resuscitation Status: Full Code - Physician Narrative Narrative: Date: 09/30/17 Time: 1410 Hospital Course Summary Disclaimer: The visit summary below is not to be considered part of the above Progress Note. Hospital Course: Impression Acute respiratory failure with hypoxia- Currently on Vapotherm at 18L New onset A-fibulation with RVR- Now converted Leukocytosis Hypokalemia Hypomagnesium Coronary artery disease Chronic kidney disease Type II diabetes Peripheral Vascular disease Hypertension Dyslipidemia Congestive heart failure History of tobacco use Chinchilla's palsy Plan Continued cardiac orders and care as per Dr Church- covering for Dr Jean-Baptiste Continues on amiodarone drip currently. Currently on Bumex drip for diuresing. Monitor weight, Urine output, and renal function carefully Obtain Sputum culture. Encourage use of Acapella Could consider treating with Antibiotic coverage for pulmonary given persistent Leukocytosis Mild hypokalemia- Given PO supplementation 40 meq today Hypomagnesium was treatment with IV magnesium supplementation 2 gm this morning. Recheck Tomorrow Continue on Vapotherm at 18 L. Exact etiology of hypoxia is unclear, Likely multifactorial. May want to consider Pulmonary consultation. Recheck CBC, BMP, magnesium tomorrow morning to follow blood counts, renal function and electrolytes Discussed case with attending, Dr. Luevano
[2017-09-30] MEDS ORDERED: METOPROLOL 5mg/5ml INJECTION IVP PRN (14:57)
[2017-09-30] MEDS ORDERED: BUMETANIDE 1 MG TABLET PO SCH (17:00)
[2017-09-30] MEDS: INSULIN ASPART 100unit/ml INJECTION SQ PRN (20:58)
[2017-09-30] MEDS: GABAPENTIN 300 MG CAPSULE PO SCH (20:59)
[2017-09-30] MEDS: ATORVASTATIN 40 MG TABLET PO SCH (21:01)
[2017-10-01] MEDS: OMEPRAZOLE 20 MG CAPSULE PO SCH (06:43)
[2017-10-01] MEDS: APIXABAN 5 MG TABLET PO SCH ×2 (08:42→21:09)
[2017-10-01] MEDS: HYDRALAZINE 25 MG TABLET PO SCH ×3 (08:42→17:51)
[2017-10-01] MEDS: ASPIRIN 325 MG TABLET PO SCH (08:42)
[2017-10-01] MEDS: AMIODARONE 200 MG TABLET PO SCH (08:43)
[2017-10-01] MEDS: DOCUSATE SODIUM 100 MG CAPSULE PO SCH (08:43)
[2017-10-01] MEDS: GABAPENTIN 100 MG CAPSULE PO SCH (08:43)
[2017-10-01] MEDS: INSULIN DETEMIR 100unit/ml INJECTION SQ SCH ×2 (08:48→21:09)
[2017-10-01] MEDS: INSULIN ASPART 100unit/ml INJECTION SQ SCH ×2 (08:48→17:52)
[2017-10-01] MEDS: INSULIN ASPART 100unit/ml INJECTION SQ PRN (14:14)
--- NOTE | 2017-10-01 14:33 | Progress Note ---
- Date 10/01/17 Subjective: Mr. Rosa was resting comfortably and watching television when seen this morning. He denied dyspnea, exertional dyspnea, chest pain, palpitations, nausea , or lightheadedness. He reported his appetite is good. Sinus rhythm by review of telemetry strips. Patient expressed no concerns at time of my assessment. Objective Vital signs: Temperature 97.4 F 10/01/17 12:45 Pulse Rate 67 10/01/17 13:30 Respiratory Rate 13 10/01/17 13:30 Blood Pressure 115/68 10/01/17 13:00 Pulse Oximetry 91 -1 L 10/01/17 13:30 I/O 3015/3950 NAD, alert Respirations nonlabored, good airflow, breath sounds clear Regular rhythm, S1-S2-heart tones distant Abdomen soft, nontender, bowel sounds present Trace edema bilateral lower extremities Rhythm: Normal Sinus Rhythm Height/Weight/BMI: Height 1.85 m Weight 125.9 kg Body Mass Index 37.0 Results - Labs CBC & Chem 7: 10/01/17 04:12 10/01/17 04:12 Labs: Calcium 6.9 with albumin 3.8 (corrected calcium 7.1), magnesium 2.0 Microbiology Results: Microbiology 09/29/17 16:00 Sputum, Expectorated Gram Stain - Preliminary 09/29/17 16:00 Sputum, Expectorated Sputum Culture -not performed - Imaging and Cardiology Chest x-ray Status: image reviewed by me (borderline cardiomegaly, minor increased vascular markings-pulmonary edema resolved) Assessment and Plan (1) Acute respiratory failure with hypoxia Current visit: Yes Status: Acute Assessment and Plan: Impression Acute respiratory failure with hypoxia- Currently on Vapotherm at 18L New onset A-fibulation with RVR- Now converted Leukocytosis, resolved Hypokalemia Hypomagnesium Coronary artery disease Chronic kidney disease, stage III Type II diabetes Peripheral Vascular disease Hypertension Dyslipidemia Congestive heart failure History of tobacco use Chinchilla's palsy Plan Converted from Bumex drip to Bumex 3 times a day yesterday after diuresing well. Chest x-ray reviewed by myself and with cardiology-significant clearing of lung jacobsen evident today. Oxygenation has improved dramatically over the past 48 hours, no longer requiring Vapotherm or BiPAP, now on 1 L per nasal cannula. BUN climbing with aggressive diuresis as is sodium-continue to monitor off Bumex drip. Sputum with mixed nelson and combined leukocytes and epithelial cells-sample rejected for culture. No others symptoms to suggest underlying infection and repeat chest x-ray without focal left upper lobe findings. Calcium noted to be low; low when adjusted for albumin. Vitamin D levels to be checked. Fasting blood sugar 101 today with postprandial 161 after breakfast; improving slowly. Anticipate further improvement with increased activity. Uses short acting insulin twice a day at home-clarifying why and whether needs to be converted to 3 times daily for improved control. Can transfer to the floor from my perspective. Will begin bladder training; consider discontinuation of Venegas catheter in the near future. DVT Prophylaxis: Eliquis GI Prophylaxis: Omeprazole Resuscitation Status: Full Code - Physician Narrative Narrative: Date: 10/01/17 Time: 1428 Hospital Course Summary Disclaimer: The visit summary below is not to be considered part of the above Progress Note. Hospital Course: Impression Acute respiratory failure with hypoxia- Currently on Vapotherm at 18L New onset A-fibulation with RVR- Now converted Leukocytosis Hypokalemia Hypomagnesium Coronary artery disease Chronic kidney disease Type II diabetes Peripheral Vascular disease Hypertension Dyslipidemia Congestive heart failure History of tobacco use Chinchilla's palsy Plan Continued cardiac orders and care as per Dr Church- covering for Dr Jean-Baptiste Continues on amiodarone drip currently. Currently on Bumex drip for diuresing. Monitor weight, Urine output, and renal function carefully Obtain Sputum culture. Encourage use of Acapella Could consider treating with Antibiotic coverage for pulmonary given persistent Leukocytosis Mild hypokalemia- Given PO supplementation 40 meq today Hypomagnesium was treatment with IV magnesium supplementation 2 gm this morning. Recheck Tomorrow Continue on Vapotherm at 18 L. Exact etiology of hypoxia is unclear, Likely multifactorial. May want to consider Pulmonary consultation. Recheck CBC, BMP, magnesium tomorrow morning to follow blood counts, renal function and electrolytes Discussed case with attending, Dr. Luevano
--- NOTE | 2017-10-01 14:36 | XRay Report ---
INDICATION: CHF PROCEDURE: CHEST 2-VIEWS UPRIGHT (PA & LAT) Encounter: Initial COMPARISON: September 29, 2017 FINDINGS: Interval improvement in bilateral areas of airspace opacity. Right PICC line remains in place. Multiple overlying monitoring leads. Trace residual perihilar areas of airspace disease. No significant pleural fluid. No pneumothorax. Heart size and mediastinal contours are stable. Pulmonary vascular congestion has improved. Impression: Improving aeration of the lungs with decreasing edema. .
--- NOTE | 2017-10-01 15:38 | Cardiology Progress Note ---
<ToyaShaila K - Last Filed: 10/01/17 15:45> Subjective Principal diagnosis: dyspnea Interval history: Jordon is seen in follow up for A Fib with RVR, NSTEMI. He converted to SR around 2014 on evening. Pt is sitting up in recliner watching television. Oxygen demands improving. Down to 3L per NC and maintaining O2 sats at 96%. States he is feeling better and breathing is improving. Denies CP , palpitations, n/v, diaphoresis, or dizziness. Good urine output. Exam Vital signs: Temperature 97.4 F 10/01/17 12:45 Pulse Rate 67 10/01/17 13:30 Respiratory Rate 13 10/01/17 13:30 Blood Pressure 115/68 10/01/17 13:00 Pulse Oximetry 91 10/01/17 13:30 Inpatient Medications: Generic Name Dose Route Start Last Admin Trade Name Freq PRN Reason Stop Dose Admin Acetaminophen 1,300 mg 09/27/17 00:17 09/30/17 21:39 Tylenol Arthritis 650 Mg Sr PO 1,300 mg Q8H PRN Administration Pain Amiodarone HCl 200 mg 09/29/17 14:15 10/01/17 08:43 Pacerone PO 200 mg DAILY LINDA Administration Apixaban 5 mg 09/29/17 21:00 10/01/17 08:42 Eliquis PO 5 mg BID LINDA Administration Aspirin 325 mg 09/27/17 09:00 10/01/17 08:42 Asa PO 325 mg DAILY LINDA Administration Atorvastatin Calcium 40 mg 09/30/17 21:00 09/30/17 21:01 Lipitor PO 40 mg HS LINDA Administration Bumetanide 2 mg 09/30/17 17:00 10/01/17 14:58 Bumex 1 Mg/4 Ml Inj. IVP 2 mg TID LINDA Administration Bumetanide 2 mg 10/02/17 09:00 Bumex 1 Mg Tab PO BID LINDA Chlorpheniramine Maleate 4 mg 09/27/17 11:45 Chlor-Trimeton PO PRN PRN For allergic rhinitis Dextromethorphan Polistirix 30 mg 09/27/17 11:46 Delsym Ext-Release PO Q12H PRN For cough Diltiazem HCl 240 mg 09/30/17 09:00 10/01/17 08:43 Cardizem Cd 240 Mg PO 240 mg DAILY LINDA Administration Docusate Sodium 100 mg 09/28/17 16:15 10/01/17 08:43 Colace PO 100 mg DAILY LINDA Administration Gabapentin 100 mg 09/27/17 09:00 10/01/17 08:43 Neurontin PO 100 mg QAM LINDA Administration Gabapentin 300 mg 09/27/17 21:00 09/30/17 20:59 Neurontin PO 300 mg HS LINDA Administration Hydralazine HCl 50 mg 09/28/17 08:00 10/01/17 12:15 Apresoline PO 50 mg TIDWM LINDA Administration Insulin Aspart 1 - 5 unit 09/29/17 15:39 10/01/17 14:14 Novolog SQ 2 unit SS PRN Administration Hyperglycemia Protocol Insulin Aspart 17 unit 10/01/17 17:30 Novolog SQ BIDWM LINDA Insulin Detemir 15 unit 10/01/17 21:00 Levemir SQ BID LINDA Metoprolol Tartrate 25 mg 09/27/17 08:00 10/01/17 12:14 Lopressor PO 25 mg WMHS LINDA Administration Metoprolol Tartrate 5 mg 09/30/17 14:57 Lopressor IVP Q6H PRN Nitroglycerin 0.4 mg 09/27/17 01:39 Nitrostat SL Q5MIN3 PRN Chest pain Omeprazole 20 mg 09/27/17 06:30 10/01/17 06:43 Prilosec PO 20 mg ACB LINDA Administration Ondansetron HCl 4 mg 09/27/17 01:39 Zofran IVP Q6H PRN Nausea &/or vomiting Potassium Chloride 20 meq 09/27/17 17:30 10/01/17 12:15 K-Dur 20 Meq Tablet PO 20 meq TIDWM LINDA Administration Sodium Chloride 10 - 80 ml 09/26/17 18:36 09/29/17 10:56 Iv Flush IVF 20 ml PRN PRN Administration Flushing Zolpidem Tartrate 5 mg 09/28/17 05:15 Ambien PO HS PRN Insomnia Discontinued Medications Generic Name Dose Route Start Last Admin Trade Name Freq PRN Reason Stop Dose Admin Amiodarone HCl 150 mg 09/26/17 19:52 09/27/17 07:15 Amiodarone IV 09/26/17 19:53 Not Given O ONE Amiodarone HCl 150 mg 09/27/17 00:16 09/27/17 00:29 Amiodarone IV 09/27/17 00:17 150 mg O ONE Administration Bumetanide 2 mg 09/27/17 14:24 09/27/17 15:02 Bumex 1 Mg/4 Ml Inj. IVP 09/27/17 14:25 2 mg O ONE Administration Bumetanide 2 mg 09/30/17 17:00 Bumex 1 Mg Tab PO [id number] LINDA Diltiazem HCl 20 mg 09/26/17 18:57 09/26/17 19:04 Cardizem 25 Mg Inj IVP 09/26/17 18:58 20 mg O ONE Administration Diltiazem HCl 25 mg 09/26/17 19:24 09/26/17 19:33 Cardizem 25 Mg Inj IVP 09/26/17 19:25 25 mg O ONE Administration Diltiazem HCl 60 mg 09/28/17 12:30 09/29/17 23:37 Cardizem Ir 60 Mg Tab PO 09/30/17 00:31 60 mg Q6H LINDA Administration Furosemide 40 mg 09/26/17 21:30 09/26/17 21:27 Lasix 40 Mg/4 Ml IVP 40 mg O LINDA Administration Furosemide 40 mg 09/27/17 06:30 09/27/17 06:58 Lasix 40 Mg/4 Ml IVP 09/27/17 06:31 40 mg O ONE Administration Furosemide 40 mg 09/27/17 17:00 Lasix 40 Mg/4 Ml IVP Q8HR LINDA Heparin Sodium (Beef Lung) 4,000 unit 09/26/17 19:52 09/26/17 20:07 Heparin Bolus IVP 09/26/17 19:53 4,000 unit O ONE Administration Heparin Sodium (Beef Lung) 5,000 unit 09/27/17 23:49 09/27/17 23:56 Heparin Bolus IVP 09/27/17 23:50 5,000 unit O ONE Administration Heparin Sodium (Beef Lung) 7,000 unit 09/28/17 09:00 09/28/17 09:08 Heparin Bolus IVP 09/28/17 09:01 7,000 unit O ONE Administration Heparin Sodium (Beef Lung) 7,000 unit 09/28/17 18:45 09/28/17 19:32 Heparin Bolus IVP 09/28/17 18:46 7,000 unit O ONE Administration Heparin Sodium (Beef Lung) 4,500 unit 09/29/17 07:30 09/29/17 08:37 Heparin Bolus IVP 09/29/17 07:31 4,500 unit O ONE Administration Heparin Sodium (Porcine) 1 each 09/27/17 22:36 09/28/17 00:22 Pharmacy Consult - Heparin 09/27/17 22:37 1 each O ONE Administration Hydralazine HCl 50 mg 09/28/17 05:21 09/28/17 05:33 Apresoline PO 09/28/17 05:22 Not Given O ONE Sodium Chloride 1,000 mls @ 999.9 mls/hr 09/26/17 18:59 09/26/17 19:45 Normal Saline IV 09/26/17 19:58 Infused .Q1H ONE Infusion Amiodarone HCl 450 mg/ Sodium 250 mls @ 33.33 mls/hr 09/26/17 19:54 09/27/17 07:01 Chloride IV 09/27/17 01:54 Not Given .Q7H31M LINDA 1 MG/MIN Heparin Sodium (Porcine) 20,000 unit in 500 mls @ 52.5 mls/hr 09/26/17 19:54 09/29/17 14:35 Heparin Drip IV Infused .Q9H32M LINDA Titration Protocol Diltiazem HCl 125 mg/ Sodium 125 mls @ 5 mls/hr 09/26/17 21:30 09/29/17 14:35 Chloride IV Infused .Q24H LINDA Infusion Protocol Amiodarone HCl 900 mg/ Sodium 500 mls @ 16.66 mls/hr 09/27/17 00:53 09/29/17 14:35 Chloride IV Infused .Q24H LINDA Infusion 0.5 MG/MIN Amiodarone HCl 450 mg/ Sodium 250 mls @ 33.33 mls/hr 09/27/17 00:53 09/27/17 09:00 Chloride IV 09/27/17 06:53 Infused .Q7H31M LINDA Infusion 1 MG/MIN Bumetanide 25 mg/ IV Solution 100 mls @ 4 mls/hr 09/27/17 15:30 09/30/17 14: 00 IV Infused .Q24H LINDA Infusion 1 MG/HR Magnesium Sulfate/Dextrose 1 gm in 100 mls @ 100 mls/hr 09/29/17 10:33 13:00 Mag Sulf 1gm Premix IV 09/29/17 12:32 Infused Q1H LINDA Infusion Insulin Aspart 15 unit 09/27/17 08:00 10/01/17 08:48 Novolog SQ 15 unit BIDWM LINDA Administration Insulin Detemir 15 unit 09/27/17 09:00 09/29/17 08:36 Levemir SQ 15 unit BID LINDA Administration Insulin Detemir 17 unit 09/29/17 21:00 10/01/17 08:48 Levemir SQ 17 unit BID LINDA Administration Metoprolol Tartrate 5 mg 09/27/17 00:15 09/30/17 10:21 Lopressor IVP 5 mg Q6HR LINDA Administration Non-Formulary Medication 2 tab 09/27/17 00:17 Chlorpheniramine/Dextromethorp [Coricidin Hbp Cough & Cold Tab] PO PRN PRN PRN orders Non-Formulary Medication 15 unit 09/27/17 09:00 Insulin Detemir [Levemir Flextouch] SQ BID LINDA Non-Formulary Medication 25 unit 09/27/17 09:00 Insulin Lispro-Do Not Expunge SQ BID LINDA Potassium Chloride 40 meq 09/27/17 00:22 09/27/17 00:37 K-Dur 20 Meq Tablet PO 09/27/17 00:23 40 meq O ONE Administration Potassium Chloride 20 meq 09/28/17 05:18 09/28/17 05:33 K-Dur 20 Meq Tablet PO 09/28/17 05:19 Not Given O ONE Potassium Chloride 40 meq 09/29/17 10:32 09/29/17 11:56 K-Dur 20 Meq Tablet PO 09/29/17 10:33 40 meq O ONE Administration Potassium Chloride 40 meq 09/30/17 14:05 09/30/17 14:50 K-Dur 20 Meq Tablet PO 09/30/17 14:06 40 meq O ONE Administration Potassium Chloride 40 meq 09/30/17 14:15 09/30/17 17:39 K-Dur 20 Meq Tablet PO 09/30/17 14:16 40 meq ONCE ONE Administration - Constitutional no acute distress, well nourished, well developed, obese, cooperative - Routine HEENT Exam Head: Present: normocephalic, atraumatic Eye: Present: PERRL - Routine Neck Exam Present: supple, trachea midline. Absent: JVD - Routine Chest/Breast/Axilla Exam Chest wall: Absent: tenderness - Routine Respiratory Exam Present: crackles. Absent: accessory muscle use, dyspnea, rhonchi, stridor, wheezes - Routine Cardiovascular Exam Present: RRR, S1, S2. Absent: no murmur, gallop, rubs, JVD - Routine Abdominal Exam Present: soft, normoactive bowel sounds, non distended, non tender - Routine Extremities Exam Present: pulses intact. Absent: cyanosis, clubbing, no edema - Routine Skin Exam Present: intact, dry, warm. Absent: rash - Routine Neurological Exam Present: alert, oriented X3, CN II-XII intact, moving all extremities, normal speech - Routine Psychiatric Exam Present: normal affect, normal thought process, cooperative, good insight, good judgment - Urinary Catheter Management Urethral Cath placed during this visit: yes Urethral indwelling: Yes Reason for continuing: Accurate I&O/Aggressive Diuresis Insertion date: 09/27/17 Insertion time: 14:49 Results 10/01/17 04:12 10/01/17 04:12 CBC 10/01/17 Range/Units 04:12 WBC 10.4 (4.5-11.0) T/MM3 RBC 3.94 L (4.50-5.90) M/MM3 Hgb 12.6 L (13.5-17.5) GM/DL Hct 40.8 L (41-53) % Plt Count 257 (130-400) T/MM3 Comprehensive Metabolic Panel 09/30/17 10/01/17 Range/Units 16:09 04:12 Sodium 148 H (136-146) MEQ/L Potassium 4.3 D 4.0 (3.6-5) MEQ/L Chloride 102 (98-107) MEQ/L Carbon Dioxide 35 H (22-30) MEQ/L BUN 51.0 H* (9-20) MG/DL Creatinine 2.1 H (0.8-1.5) mg/dL Glucose 109 (75-110) MG/DL Calcium 6.9 L (8.4-10.2) MG/DL Albumin 3.8 (3.5-5.0) g/dL Intake and Output 10/01/17 10/01/17 10/01/17 06:59 14:59 22:59 Intake Total 240 / 240 850 / 850 Output Total 860 / 860 880 / 880 Balance -620 / -620 -30 / -30 Intake: Oral 240 / 240 850 / 850 Output: Urine Amount (Catheter) 860 / 860 880 / 880 Other: Urine Appearance Clear Clear Urine Color Pale Dark Yellow Yellow - Imaging and Cardiology EKG results: report reviewed - EKG Interpretation EKG: sinus rhythm Assessment and Plan - Assessment and Plan (1) Atrial fibrillation with RVR Status: Resolved (2) NSTEMI (non-ST elevated myocardial infarction) Status: Acute (3) Coronary artery disease Status: Chronic (4) Nonischemic cardiomyopathy Status: Chronic (5) Dilated cardiomyopathy Status: Chronic (6) Peripheral vascular disease Status: Chronic (7) Hypertension Status: Chronic (8) Diabetes Status: Chronic (9) Chronic kidney disease Status: Chronic (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 - Received Cardizem boluses and Cardizem gtt at 15 mg/hr and HR 160's - Received metoprolol 5mg q 6 hrs with parameters and HR came down to 140's. - Started amiodarone bolus and gtt per protocol and HR decreased 100's - 120' s - metoprolol tartrate 25mg po QID (takes metoprolol succinate 100mg daily at home) - Converted at approximately 2000 on 09/28/17 - TSH 2.93 - Monitor lytes to maintain K>4, Mg>2 - Continue PO Amiodarone and Cardizem - RADHA without thrombus, DCCV unsuccessful on 09/28/2017 - Echo: EF 15-20%, Severe global hypokinesis, MOSES, LAD, mod-severe MR, dilated IVC, PAP 50-60 - Continue Eliquis 5 mg PO BID NSTEMI - likely due to A-fib w RVR - Trop flat at 0.18 Acute Hypoxic Respiratory Failure - Diuresing well; progressive improvement in oxygenation. - Leukocytosis resolved, no fever or sputum production to suggest active infection. - Initial Gram stain of induced sputum noted, await culture results. - Chest x-ray: improving aeration and decreased edema - Managed per medicine Mild CAD per [address] Jean-Baptiste - stenosis no greater than 30% ( report on chart). - cont ASA, BB, and start statin. Hx NICM, DCM - 07/08/2014 Heart cath: EF 25%, - 10/16/2014 echo: EF 50-55%, LVH, DD, BAD, RVE, mild MR/TR/CT, PAP 39. - with SOB, SAHU, orthopnea, - BNP 4960 (9960) - Started on Bumex gtt on 09/27/2017-6kg weight loss - Change to Bumex 2 mg PO BID - takes torsemide at home as prescribed by renal - on hold for now. - Echo: EF 15-20%, Severe global hypokinesis, MOSES, LAD, mod-severe MR, dilated IVC, PAP 50-60 - Will need routine f/u with nephrology - CXR: improving aeration and decreased edema Mitral Regurgitation - Moderate to Severe per Echo - Medical management Pulmonary Hypertension - Dilated IVC, PAP 50-60 mm Hg per Echo - CXR: improving aeration and decreased edema - Bumex 2 mg PO BID - Medical Management PVD - s/p 2016 left fem-pop bypass. - s/p left great toe amputation. - cont ASA and and start atorvastatin - feet warm, no wounds. HTN - hold home lisinopril in order to use other meds to control HR - cont metoprolol tartrate 25mg QID (home dose metorpolol succinate 100mg po daily). - cont PO Cardizem and Hydralazine DMT2 - FBS and 2 hr pc - Continue Levemir and Novolog CKD Stage 2 - monitor Cr. Bad tooth on left side of mouth for the last month. - states he plans to go to the dentist but concerned about the cost Chinchilla's Palsy. 09/28/17 - RADHA without thrombus, DCCV unsuccessful yesterday, see report - EF 10-15%, medical management - Rate remains elevated in the 120-130s. - Start diltiazem IR 60mg Q6h, and wean drip as able - Increase diltiazem to 90mg in 6 hours if rate is consistently >100 - Continue diuresis with Bumex drip - monitor renal and electrolytes - chest x-ray in the am 09/29/17 - Converted to SR last evening, Continue Metoprolol, continue Cardizem IR until 0030 dose then DC - Cardizem CD 240 daily in am, Amiodarone 200mg daily, Eliquis 5mg BID - Stop Heparin and Amiodarone drips - CXR: Worsening airspace consolidation in the left upper lobe. - WBC up to 16.4, continues to cough - Consult hospitalist for further evaluation - K+ 3.3/ Mag 1.5, replace to keep K+ >4.0, Mag >2.0 - BNP pending 09/30/17 - Remains in SR - Bumex gtt stopped, started Bumex 2mg IV TID - WBC trending down - CXR in the am 10/01/17 - Remains in SR - Change to Bumex 2 mg PO BID - WBC WNL - Improved oxygenation - Transfer out of ICU Hospital Course Summary Disclaimer: The visit summary below is not to be considered part of the above Progress Note. Hospital Course: Impression Acute respiratory failure with hypoxia- Currently on Vapotherm at 18L New onset A-fibulation with RVR- Now converted Leukocytosis Hypokalemia Hypomagnesium Coronary artery disease Chronic kidney disease Type II diabetes Peripheral Vascular disease Hypertension Dyslipidemia Congestive heart failure History of tobacco use Chinchilla's palsy Plan Continued cardiac orders and care as per Dr Church- covering for Dr Jean-Baptiste Continues on amiodarone drip currently. Currently on Bumex drip for diuresing. Monitor weight, Urine output, and renal function carefully Obtain Sputum culture. Encourage use of Acapella Could consider treating with Antibiotic coverage for pulmonary given persistent Leukocytosis Mild hypokalemia- Given PO supplementation 40 meq today Hypomagnesium was treatment with IV magnesium supplementation 2 gm this morning. Recheck Tomorrow Continue on Vapotherm at 18 L. Exact etiology of hypoxia is unclear, Likely multifactorial. May want to consider Pulmonary consultation. Recheck CBC, BMP, magnesium tomorrow morning to follow blood counts, renal function and electrolytes Discussed case with attending, Dr. Luevano <Thang Jean-Baptiste - Last Filed: 10/10/17 08:18> Exam Vital signs: Temperature 97.3 F 10/04/17 08:00 Pulse Rate 77 10/04/17 08:00 Respiratory Rate 16 10/04/17 08:00 Blood Pressure 157/69 H 10/04/17 08:00 Pulse Oximetry 92 10/04/17 08:00 Inpatient Medications: Discontinued Medications Generic Name Dose Route Start Last Admin Trade Name Freq PRN Reason Stop Dose Admin Acetaminophen 1,300 mg 09/27/17 00:17 10/04/17 10:29 Tylenol Arthritis 650 Mg Sr PO 1,300 mg Q8H PRN Administration Pain Amiodarone HCl 150 mg 09/26/17 19:52 09/27/17 07:15 Amiodarone IV 09/26/17 19:53 Not Given O ONE Amiodarone HCl 150 mg 09/27/17 00:16 09/27/17 00:29 Amiodarone IV 09/27/17 00:17 150 mg O ONE Administration Amiodarone HCl 200 mg 09/29/17 14:15 10/04/17 08:55 Pacerone PO 200 mg DAILY [facility] Administration Apixaban 5 mg 09/29/17 21:00 10/04/17 08:55 Eliquis PO 5 mg BID LINDA Administration Aspirin 325 mg 09/27/17 09:00 10/02/17 08:09 Asa PO 325 mg DAILY LINDA Administration Aspirin 81 mg 10/03/17 09:00 Asa PO DAILY [facility] Atorvastatin Calcium 40 mg 09/30/17 21:00 10/03/17 21:33 Lipitor PO 40 mg HS LINDA Administration Bumetanide 2 mg 09/27/17 14:24 09/27/17 15:02 Bumex 1 Mg/4 Ml Inj. IVP 09/27/17 14:25 2 mg O ONE Administration Bumetanide 2 mg 09/30/17 17:00 Bumex 1 Mg Tab PO [id number] [facility] Bumetanide 2 mg 09/30/17 17:00 10/01/17 14:58 Bumex 1 Mg/4 Ml Inj. IVP 2 mg TID LINDA Administration Bumetanide 2 mg 10/02/17 09:00 10/02/17 08:09 Bumex 1 Mg Tab PO 2 mg BID LINDA Administration Bumetanide 1 mg 10/03/17 09:00 10/04/17 08:55 Bumex 1 Mg Tab PO 1 mg DAILY LINDA Administration Carvedilol 3.125 mg 10/02/17 17:30 10/04/17 08:55 Coreg PO 3.125 mg BIDWM LINDA Administration Chlorpheniramine Maleate 4 mg 09/27/17 11:45 Chlor-Trimeton PO PRN PRN For allergic rhinitis Cholecalciferol 800 unit 10/03/17 09:00 Vit. D-3 PO DAILY LINDA Cholecalciferol 5,000 unit 10/03/17 09:00 10/04/17 08:55 Vit. D-3 PO 5,000 unit DAILY [facility] Administration Dextromethorphan Polistirix 30 mg 09/27/17 11:46 Delsym Ext-Release PO Q12H PRN For cough Diltiazem HCl 20 mg 09/26/17 18:57 09/26/17 19:04 Cardizem 25 Mg Inj IVP 09/26/17 18:58 20 mg O ONE Administration Diltiazem HCl 25 mg 09/26/17 19:24 09/26/17 19:33 Cardizem 25 Mg Inj IVP 09/26/17 19:25 25 mg O ONE Administration Diltiazem HCl 60 mg 09/28/17 12:30 09/29/17 23:37 Cardizem Ir 60 Mg Tab PO 09/30/17 00:31 60 mg Q6H LINDA Administration Diltiazem HCl 240 mg 09/30/17 09:00 10/02/17 08:10 Cardizem Cd 240 Mg PO 240 mg DAILY LINDA Administration Docusate Sodium 100 mg 09/28/17 16:15 10/04/17 08:55 Colace PO 100 mg DAILY LINDA Administration Furosemide 40 mg 09/26/17 21:30 09/26/17 21:27 Lasix 40 Mg/4 Ml IVP 40 mg O LINDA Administration Furosemide 40 mg 09/27/17 06:30 09/27/17 06:58 Lasix 40 Mg/4 Ml IVP 09/27/17 06:31 40 mg O ONE Administration Furosemide 40 mg 09/27/17 17:00 Lasix 40 Mg/4 Ml IVP Q8HR LINDA Gabapentin 100 mg 09/27/17 09:00 10/04/17 08:55 Neurontin PO 100 mg QAM LINDA Administration Gabapentin 300 mg 09/27/17 21:00 10/03/17 21:33 Neurontin PO 300 mg HS LINDA Administration Heparin Sodium (Beef Lung) 4,000 unit 09/26/17 19:52 09/26/17 20:07 Heparin Bolus IVP 09/26/17 19:53 4,000 unit O ONE Administration Heparin Sodium (Beef Lung) 5,000 unit 09/27/17 23:49 09/27/17 23:56 Heparin Bolus IVP 09/27/17 23:50 5,000 unit O ONE Administration Heparin Sodium (Beef Lung) 7,000 unit 09/28/17 09:00 09/28/17 09:08 Heparin Bolus IVP 09/28/17 09:01 7,000 unit O ONE Administration Heparin Sodium (Beef Lung) 7,000 unit 09/28/17 18:45 09/28/17 19:32 Heparin Bolus IVP 09/28/17 18:46 7,000 unit O ONE Administration Heparin Sodium (Beef Lung) 4,500 unit 09/29/17 07:30 09/29/17 08:37 Heparin Bolus IVP 09/29/17 07:31 4,500 unit O ONE Administration Heparin Sodium (Porcine) 1 each 09/27/17 22:36 09/28/17 00:22 Pharmacy Consult - Heparin MC 09/27/17 22:37 1 each O ONE Administration Hydralazine HCl 50 mg 09/28/17 08:00 10/04/17 08:55 Apresoline PO 50 mg TIDWM LINDA Administration Hydralazine HCl 50 mg 09/28/17 05:21 09/28/17 05:33 Apresoline PO 09/28/17 05:22 Not Given O ONE Sodium Chloride 1,000 mls @ 999.9 mls/hr 09/26/17 18:59 09/26/17 19:45 Normal Saline IV 09/26/17 19:58 Infused .Q1H ONE Infusion Amiodarone HCl 450 mg/ Sodium 250 mls @ 33.33 mls/hr 09/26/17 19:54 09/27/17 07:01 Chloride IV 09/27/17 01:54 Not Given .Q7H31M LINDA 1 MG/MIN Heparin Sodium (Porcine) 20,000 unit in 500 mls @ 52.5 mls/hr 09/26/17 19:54 09/29/17 14:35 Heparin Drip IV Infused .Q9H32M LINDA Titration Protocol Diltiazem HCl 125 mg/ Sodium 125 mls @ 5 mls/hr 09/26/17 21:30 09/29/17 14:35 Chloride IV Infused .Q24H LINDA Infusion Protocol Amiodarone HCl 900 mg/ Sodium 500 mls @ 16.66 mls/hr 09/27/17 00:53 09/29/17 14:35 Chloride IV Infused .Q24H LINDA Infusion 0.5 MG/MIN Amiodarone HCl 450 mg/ Sodium 250 mls @ 33.33 mls/hr 09/27/17 00:53 09/27/17 09:00 Chloride IV 09/27/17 06:53 Infused .Q7H31M LINDA Infusion 1 MG/MIN Bumetanide 25 mg/ IV Solution 100 mls @ 4 mls/hr 09/27/17 15:30 09/30/17 14: 00 IV Infused .Q24H LINDA Infusion 1 MG/HR Magnesium Sulfate/Dextrose 1 gm in 100 mls @ 100 mls/hr 09/29/17 10:33 13:00 Mag Sulf 1gm Premix IV 09/29/17 12:32 Infused Q1H LINDA Infusion Insulin Aspart 15 unit 09/27/17 08:00 10/01/17 08:48 Novolog SQ 15 unit BIDWM LINDA Administration Insulin Aspart 1 - 5 unit 09/29/17 15:39 10/03/17 21:34 Novolog SQ 2 unit SS PRN Administration Hyperglycemia Protocol Insulin Aspart 17 unit 10/01/17 17:30 10/04/17 08:55 Novolog SQ 17 unit BIDWM LINDA Administration Insulin Detemir 15 unit 09/27/17 09:00 09/29/17 08:36 Levemir SQ 15 unit BID LINDA Administration Insulin Detemir 17 unit 09/29/17 21:00 10/01/17 08:48 Levemir SQ 17 unit BID LINDA Administration Insulin Detemir 15 unit 10/01/17 21:00 10/04/17 08:54 Levemir SQ 15 unit BID LINDA Administration Isosorbide Mononitrate 30 mg 10/03/17 07:00 10/04/17 06:35 Imdur PO 30 mg 0700 LINDA Administration Metoprolol Tartrate 5 mg 09/27/17 00:15 09/30/17 10:21 Lopressor IVP 5 mg Q6HR LINDA Administration Metoprolol Tartrate 25 mg 09/27/17 08:00 10/02/17 08:10 Lopressor PO 25 mg WMHS LINDA Administration Metoprolol Tartrate 5 mg 09/30/17 14:57 Lopressor IVP Q6H PRN Nitroglycerin 0.4 mg 09/27/17 01:39 Nitrostat SL Q5MIN3 PRN Chest pain Non-Formulary Medication 2 tab 09/27/17 00:17 Chlorpheniramine/Dextromethorp [Coricidin Hbp Cough & Cold Tab] PO PRN PRN PRN orders Non-Formulary Medication 15 unit 09/27/17 09:00 Insulin Detemir [Levemir Flextouch] SQ BID LINDA Non-Formulary Medication 25 unit 09/27/17 09:00 Insulin Lispro-Do Not Expunge SQ BID LINDA Omeprazole 20 mg 09/27/17 06:30 10/04/17 06:35 Prilosec PO 20 mg ACB LINDA Administration Ondansetron HCl 4 mg 09/27/17 01:39 Zofran IVP Q6H PRN Nausea &/or vomiting Potassium Chloride 40 meq 09/27/17 00:22 09/27/17 00:37 K-Dur 20 Meq Tablet PO 09/27/17 00:23 40 meq O ONE Administration Potassium Chloride 20 meq 09/27/17 17:30 10/02/17 12:05 K-Dur 20 Meq Tablet PO Not Given TIDWM [facility] Potassium Chloride 20 meq 09/28/17 05:18 09/28/17 05:33 K-Dur 20 Meq Tablet PO 09/28/17 05:19 Not Given O ONE Potassium Chloride 40 meq 09/29/17 10:32 09/29/17 11:56 K-Dur 20 Meq Tablet PO 09/29/17 10:33 40 meq O ONE Administration Potassium Chloride 40 meq 09/30/17 14:05 09/30/17 14:50 K-Dur 20 Meq Tablet PO 09/30/17 14:06 40 meq O ONE Administration Potassium Chloride 40 meq 09/30/17 14:15 09/30/17 17:39 K-Dur 20 Meq Tablet PO 09/30/17 14:16 40 meq ONCE ONE Administration Sodium Chloride 10 - 80 ml 09/26/17 18:36 10/01/17 17:52 Iv Flush IVF 20 ml PRN PRN Administration Flushing Zolpidem Tartrate 5 mg 09/28/17 05:15 Ambien PO HS PRN Insomnia - Urinary Catheter Management Urethral Cath placed during this visit: no Results 10/02/17 04:02 10/04/17 05:35 Assessment and Plan - Assessment and Plan (1) Atrial fibrillation with RVR Status: Resolved (2) NSTEMI (non-ST elevated myocardial infarction) Status: Acute (3) Coronary artery disease Status: Chronic (4) Nonischemic cardiomyopathy Status: Chronic (5) Dilated cardiomyopathy Status: Chronic (6) Peripheral vascular disease Status: Chronic (7) Hypertension Status: Chronic (8) Diabetes Status: Chronic (9) Chronic kidney disease Status: Chronic (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 I am involved in the formulation of the patient's plan of care. Hospital Course Summary Disclaimer: The visit summary below is not to be considered part of the above Progress Note.
[2017-10-01] MEDS: SALINE FLUSH 10ml SYRINGE IVF PRN (17:52)
[2017-10-01] MEDS: GABAPENTIN 300 MG CAPSULE PO SCH (21:09)
[2017-10-01] MEDS: ATORVASTATIN 40 MG TABLET PO SCH (21:09)
[2017-10-02] MEDS: OMEPRAZOLE 20 MG CAPSULE PO SCH (05:55)
[2017-10-02] MEDS: INSULIN ASPART 100unit/ml INJECTION SQ SCH ×2 (08:06→17:15)
[2017-10-02] MEDS: INSULIN DETEMIR 100unit/ml INJECTION SQ SCH ×2 (08:06→20:11)
[2017-10-02] MEDS: AMIODARONE 200 MG TABLET PO SCH (08:08)
[2017-10-02] MEDS: GABAPENTIN 100 MG CAPSULE PO SCH (08:09)
[2017-10-02] MEDS: APIXABAN 5 MG TABLET PO SCH ×2 (08:09→20:12)
[2017-10-02] MEDS: HYDRALAZINE 25 MG TABLET PO SCH ×3 (08:09→17:15)
[2017-10-02] MEDS: ASPIRIN 325 MG TABLET PO SCH (08:09)
[2017-10-02] MEDS: DOCUSATE SODIUM 100 MG CAPSULE PO SCH (08:10)
[2017-10-02] MEDS ORDERED: BUMETANIDE 1 MG TABLET PO SCH (09:00)
--- NOTE | 2017-10-02 10:40 | Progress Note ---
- Date 10/02/17 Subjective: Jordon is feeling well today. He denies any complaints, and specifically denies chest pain, palpitations, or dyspnea. He denies feeling weak, dizzy, or lightheaded with positional changes or ambulation. He has been eating and drinking well without any abdominal pain or GI complaints. He denies constipation. Objective Vital signs: Temperature 97.4 F 10/02/17 07:42 Pulse Rate 73 10/02/17 07:53 Respiratory Rate 16 10/02/17 07:42 Blood Pressure 137/73 10/02/17 07:42 Pulse Oximetry 94 10/02/17 09:13 Rhythm: Normal Sinus Rhythm Height/Weight/BMI: Height 1.85 m Weight 127.2 kg Body Mass Index 37.0 - Constitutional Present: no acute distress, well nourished, well developed - Routine HEENT Exam Head: Present: normocephalic Eye: Present: PERRL. Absent: conjunctival icterus, scleral injection ENT: Present: mucous membranes moist, oropharynx clear - Routine Respiratory Exam Present: CTA bilaterally - Routine Cardiovascular Exam Present: RRR, S1, S2 - Routine Abdominal Exam Present: soft, normoactive bowel sounds, non distended, non tender - Routine Extremities Exam Present: no edema - Routine Skin Exam Present: intact, dry, warm - Routine Neurological Exam Present: alert, oriented X3, CN II-XII intact, moving all extremities, vision grossly intact, hearing grossly intact, normal speech. Absent: sensory deficit , motor deficit, altered mental status, facial asymmetry - Routine Psychiatric Exam Present: normal affect, normal thought process, cooperative Results - Labs CBC & Chem 7: 10/02/17 04:02 10/02/17 04:02 Microbiology Results: Microbiology 09/29/17 16:00 Sputum, Expectorated Gram Stain - Preliminary 09/29/17 16:00 Sputum, Expectorated Sputum Culture - Final Assessment and Plan Assessment and Plan: Impression Acute respiratory failure with hypoxia - improving New onset A-fibulation with RVR - Now converted NSTEMI Mitral regurgitation Pulmonary HTN Leukocytosis, resolved Hypokalemia - resolved Hypomagnesium - resolved Hypernatremia - resolved Coronary artery disease Hypertension Dyslipidemia Congestive heart failure Peripheral vascular disease Chronic kidney disease, stage III Type II diabetes History of tobacco use Chinchilla's palsy Obesity with BMI 37.0 Plan Weight down further this am, overall down 10L since admission. O2 currently at 2L. Diuresis per cardiology. BUN increased slightly to 53, though creatinine has decreased to 1.9. 25-OH Vit D is low at 15.6, Vit D 1,25 pending. Start cholecalciferol 5000 IU daily. BGM improving so far today. Continue bladder retraining; discontinue Venegas soon. Telemetry - sinus. DVT Prophylaxis: Eliquis GI Prophylaxis: Omeprazole Resuscitation Status: Full Code - Time spent with patient Time with patient PN: 25 minutes - Physician Narrative Physician: Albert Bustillo MD Narrative: Date: 10/02/17 Time: 1650 Have independently interviewed and examined pt. Chart reviewed. Case discussed with CM and my RETREAD OPERATOR. Care plan developed with my supervision; agree with above. Doing well today. Feels breathing improving-less SOA and O2 needs decreasing. Little cough, not feeling chest congestion. Not sure if Acapella doing anything to help breathing. No chest pressure or pain. Notes some slight dizziness with positional changes but nothing excessively bothersome - reports always has some issues due to his heart medications. Did work with therapy today-able to ambulate in halls; felt he did okay. Eating well. No ab pain or nausea. Bowels stable. Tired of Venegas cath. No f/c. Lungs: decreased breath sounds, diffuse crackles. CV: regular AB: soft nt/nd MSE: awake alert appropriate Plan: Responding well to cardiac medications - O2 needs decreasing, renal status stable. Encourage continued work with therapy to improve functional status. Oral Vit D 5000 IU daily - could continue this for 2-4 weeks and then decrease to 2000 IU. Continue with current glycemic control. Monitor lab. Hospital Course Summary Disclaimer: The visit summary below is not to be considered part of the above Progress Note. Hospital Course: Impression Acute respiratory failure with hypoxia- Currently on Vapotherm at 18L New onset A-fibulation with RVR- Now converted Leukocytosis Hypokalemia Hypomagnesium Coronary artery disease Chronic kidney disease Type II diabetes Peripheral Vascular disease Hypertension Dyslipidemia Congestive heart failure History of tobacco use Chinchilla's palsy Plan Continued cardiac orders and care as per Dr Church- covering for Dr Jean-Baptiste Continues on amiodarone drip currently. Currently on Bumex drip for diuresing. Monitor weight, Urine output, and renal function carefully Obtain Sputum culture. Encourage use of Acapella Could consider treating with Antibiotic coverage for pulmonary given persistent Leukocytosis Mild hypokalemia- Given PO supplementation 40 meq today Hypomagnesium was treatment with IV magnesium supplementation 2 gm this morning. Recheck Tomorrow Continue on Vapotherm at 18 L. Exact etiology of hypoxia is unclear, Likely multifactorial. May want to consider Pulmonary consultation. Recheck CBC, BMP, magnesium tomorrow morning to follow blood counts, renal function and electrolytes Discussed case with attending, Dr. Luevano
--- NOTE | 2017-10-02 11:43 | Cardiology Progress Note ---
<FernandoDoris A - Last Filed: 10/02/17 13:20> Subjective Principal diagnosis: dyspnea Interval history: Jordon is seen in follow up for A Fib with RVR, NSTEMI. He converted to SR around 2014 on evening. Pt is sitting up in bed watching television. States he is feeling better and breathing is improving. Denies CP, palpitations, n/v, diaphoresis, or dizziness. Good urine output. Exam Vital signs: Temperature 97.4 F 10/02/17 07:42 Pulse Rate 73 10/02/17 07:53 Respiratory Rate 16 10/02/17 07:42 Blood Pressure 137/73 10/02/17 07:42 Pulse Oximetry 95 10/02/17 10:54 Inpatient Medications: Generic Name Dose Route Start Last Admin Trade Name Freq PRN Reason Stop Dose Admin Acetaminophen 1,300 mg 09/27/17 00:17 09/30/17 21:39 Tylenol Arthritis 650 Mg Sr PO 1,300 mg Q8H PRN Administration Pain Amiodarone HCl 200 mg 09/29/17 14:15 10/02/17 08:08 Pacerone PO 200 mg DAILY LINDA Administration Apixaban 5 mg 09/29/17 21:00 10/02/17 08:09 Eliquis PO 5 mg BID LINDA Administration Aspirin 325 mg 09/27/17 09:00 10/02/17 08:09 Asa PO 325 mg DAILY LINDA Administration Atorvastatin Calcium 40 mg 09/30/17 21:00 10/01/17 21:09 Lipitor PO 40 mg HS LINDA Administration Bumetanide 2 mg 10/02/17 09:00 10/02/17 08:09 Bumex 1 Mg Tab PO 2 mg BID LINDA Administration Chlorpheniramine Maleate 4 mg 09/27/17 11:45 Chlor-Trimeton PO PRN PRN For allergic rhinitis Cholecalciferol 800 unit 10/03/17 09:00 Vit. D-3 PO DAILY LINDA Dextromethorphan Polistirix 30 mg 09/27/17 11:46 Delsym Ext-Release PO Q12H PRN For cough Diltiazem HCl 240 mg 09/30/17 09:00 10/02/17 08:10 Cardizem Cd 240 Mg PO 240 mg DAILY LINDA Administration Docusate Sodium 100 mg 09/28/17 16:15 10/02/17 08:10 Colace PO 100 mg DAILY LINDA Administration Gabapentin 100 mg 09/27/17 09:00 10/02/17 08:09 Neurontin PO 100 mg QAM LINDA Administration Gabapentin 300 mg 09/27/17 21:00 10/01/17 21:09 Neurontin PO 300 mg HS LINDA Administration Hydralazine HCl 50 mg 09/28/17 08:00 10/02/17 08:09 Apresoline PO 50 mg TIDWM LINDA Administration Insulin Aspart 1 - 5 unit 09/29/17 15:39 10/01/17 14:14 Novolog SQ 2 unit SS PRN Administration Hyperglycemia Protocol Insulin Aspart 17 unit 10/01/17 17:30 10/02/17 08:06 Novolog SQ 17 unit BIDWM LINDA Administration Insulin Detemir 15 unit 10/01/17 21:00 10/02/17 08:06 Levemir SQ 15 unit BID LINDA Administration Metoprolol Tartrate 25 mg 09/27/17 08:00 10/02/17 08:10 Lopressor PO 25 mg WMHS LINDA Administration Metoprolol Tartrate 5 mg 09/30/17 14:57 Lopressor IVP Q6H PRN Nitroglycerin 0.4 mg 09/27/17 01:39 Nitrostat SL Q5MIN3 PRN Chest pain Omeprazole 20 mg 09/27/17 06:30 10/02/17 05:55 Prilosec PO 20 mg ACB LINDA Administration Ondansetron HCl 4 mg 09/27/17 01:39 Zofran IVP Q6H PRN Nausea &/or vomiting Potassium Chloride 20 meq 09/27/17 17:30 10/02/17 08:10 K-Dur 20 Meq Tablet PO 20 meq TIDWM LINDA Administration Sodium Chloride 10 - 80 ml 09/26/17 18:36 10/01/17 17:52 Iv Flush IVF 20 ml PRN PRN Administration Flushing Zolpidem Tartrate 5 mg 09/28/17 05:15 Ambien PO HS PRN Insomnia Discontinued Medications Generic Name Dose Route Start Last Admin Trade Name Freq PRN Reason Stop Dose Admin Amiodarone HCl 150 mg 09/26/17 19:52 09/27/17 07:15 Amiodarone IV 09/26/17 19:53 Not Given O ONE Amiodarone HCl 150 mg 09/27/17 00:16 09/27/17 00:29 Amiodarone IV 09/27/17 00:17 150 mg O ONE Administration Bumetanide 2 mg 09/27/17 14:24 09/27/17 15:02 Bumex 1 Mg/4 Ml Inj. IVP 09/27/17 14:25 2 mg O ONE Administration Bumetanide 2 mg 09/30/17 17:00 Bumex 1 Mg Tab PO [id number] LINDA Bumetanide 2 mg 09/30/17 17:00 10/01/17 14:58 Bumex 1 Mg/4 Ml Inj. IVP 2 mg TID LINDA Administration Diltiazem HCl 20 mg 09/26/17 18:57 09/26/17 19:04 Cardizem 25 Mg Inj IVP 09/26/17 18:58 20 mg O ONE Administration Diltiazem HCl 25 mg 09/26/17 19:24 09/26/17 19:33 Cardizem 25 Mg Inj IVP 09/26/17 19:25 25 mg O ONE Administration Diltiazem HCl 60 mg 09/28/17 12:30 09/29/17 23:37 Cardizem Ir 60 Mg Tab PO 09/30/17 00:31 60 mg Q6H LINDA Administration Furosemide 40 mg 09/26/17 21:30 09/26/17 21:27 Lasix 40 Mg/4 Ml IVP 40 mg O LINDA Administration Furosemide 40 mg 09/27/17 06:30 09/27/17 06:58 Lasix 40 Mg/4 Ml IVP 09/27/17 06:31 40 mg O ONE Administration Furosemide 40 mg 09/27/17 17:00 Lasix 40 Mg/4 Ml IVP Q8HR LINDA Heparin Sodium (Beef Lung) 4,000 unit 09/26/17 19:52 09/26/17 20:07 Heparin Bolus IVP 09/26/17 19:53 4,000 unit O ONE Administration Heparin Sodium (Beef Lung) 5,000 unit 09/27/17 23:49 09/27/17 23:56 Heparin Bolus IVP 09/27/17 23:50 5,000 unit O ONE Administration Heparin Sodium (Beef Lung) 7,000 unit 09/28/17 09:00 09/28/17 09:08 Heparin Bolus IVP 09/28/17 09:01 7,000 unit O ONE Administration Heparin Sodium (Beef Lung) 7,000 unit 09/28/17 18:45 09/28/17 19:32 Heparin Bolus IVP 09/28/17 18:46 7,000 unit O ONE Administration Heparin Sodium (Beef Lung) 4,500 unit 09/29/17 07:30 09/29/17 08:37 Heparin Bolus IVP 09/29/17 07:31 4,500 unit O ONE Administration Heparin Sodium (Porcine) 1 each 09/27/17 22:36 09/28/17 00:22 Pharmacy Consult - Heparin 09/27/17 22:37 1 each O ONE Administration Hydralazine HCl 50 mg 09/28/17 05:21 09/28/17 05:33 Apresoline PO 09/28/17 05:22 Not Given O ONE Sodium Chloride 1,000 mls @ 999.9 mls/hr 09/26/17 18:59 09/26/17 19:45 Normal Saline IV 09/26/17 19:58 Infused .Q1H ONE Infusion Amiodarone HCl 450 mg/ Sodium 250 mls @ 33.33 mls/hr 09/26/17 19:54 09/27/17 07:01 Chloride IV 09/27/17 01:54 Not Given .Q7H31M LINDA 1 MG/MIN Heparin Sodium (Porcine) 20,000 unit in 500 mls @ 52.5 mls/hr 09/26/17 19:54 09/29/17 14:35 Heparin Drip IV Infused .Q9H32M LINDA Titration Protocol Diltiazem HCl 125 mg/ Sodium 125 mls @ 5 mls/hr 09/26/17 21:30 09/29/17 14:35 Chloride IV Infused .Q24H LINDA Infusion Protocol Amiodarone HCl 900 mg/ Sodium 500 mls @ 16.66 mls/hr 09/27/17 00:53 09/29/17 14:35 Chloride IV Infused .Q24H LINDA Infusion 0.5 MG/MIN Amiodarone HCl 450 mg/ Sodium 250 mls @ 33.33 mls/hr 09/27/17 00:53 09/27/17 09:00 Chloride IV 09/27/17 06:53 Infused .Q7H31M LINDA Infusion 1 MG/MIN Bumetanide 25 mg/ IV Solution 100 mls @ 4 mls/hr 09/27/17 15:30 09/30/17 14: 00 IV Infused .Q24H LINDA Infusion 1 MG/HR Magnesium Sulfate/Dextrose 1 gm in 100 mls @ 100 mls/hr 09/29/17 10:33 13:00 Mag Sulf 1gm Premix IV 09/29/17 12:32 Infused Q1H LINDA Infusion Insulin Aspart 15 unit 09/27/17 08:00 10/01/17 08:48 Novolog SQ 15 unit BIDWM LINDA Administration Insulin Detemir 15 unit 09/27/17 09:00 09/29/17 08:36 Levemir SQ 15 unit BID LINDA Administration Insulin Detemir 17 unit 09/29/17 21:00 10/01/17 08:48 Levemir SQ 17 unit BID LINDA Administration Metoprolol Tartrate 5 mg 09/27/17 00:15 09/30/17 10:21 Lopressor IVP 5 mg Q6HR LINDA Administration Non-Formulary Medication 2 tab 09/27/17 00:17 Chlorpheniramine/Dextromethorp [Coricidin Hbp Cough & Cold Tab] PO PRN PRN PRN orders Non-Formulary Medication 15 unit 09/27/17 09:00 Insulin Detemir [Levemir Flextouch] SQ BID LINDA Non-Formulary Medication 25 unit 09/27/17 09:00 Insulin Lispro-Do Not Expunge SQ BID LINDA Potassium Chloride 40 meq 09/27/17 00:22 09/27/17 00:37 K-Dur 20 Meq Tablet PO 09/27/17 00:23 40 meq O ONE Administration Potassium Chloride 20 meq 09/28/17 05:18 09/28/17 05:33 K-Dur 20 Meq Tablet PO 09/28/17 05:19 Not Given O ONE Potassium Chloride 40 meq 09/29/17 10:32 09/29/17 11:56 K-Dur 20 Meq Tablet PO 09/29/17 10:33 40 meq O ONE Administration Potassium Chloride 40 meq 09/30/17 14:05 09/30/17 14:50 K-Dur 20 Meq Tablet PO 09/30/17 14:06 40 meq O ONE Administration Potassium Chloride 40 meq 09/30/17 14:15 09/30/17 17:39 K-Dur 20 Meq Tablet PO 09/30/17 14:16 40 meq ONCE ONE Administration - Constitutional no acute distress, well nourished, well developed - Routine HEENT Exam Head: Present: normocephalic, atraumatic Eye: Present: EOMI, PERRL ENT: Present: mucous membranes moist - Routine Neck Exam Present: supple. Absent: carotid bruit - Routine Respiratory Exam Present: decreased breath sounds, prolonged expiratory phase - Routine Cardiovascular Exam Present: RRR, no murmur - Routine Abdominal Exam Present: soft, normoactive bowel sounds - Routine Extremities Exam Present: edema. Absent: cyanosis - Routine Skin Exam Absent: cyanosis - Routine Neurological Exam Present: alert, oriented X3 - Routine Psychiatric Exam Present: normal affect - Urinary Catheter Management Urethral Cath placed during this visit: yes Urethral indwelling: Yes Insertion date: 09/27/17 Insertion time: 14:49 Results 10/02/17 04:02 10/02/17 04:02 CBC 10/02/17 Range/Units 04:02 WBC 10.7 (4.5-11.0) T/MM3 RBC 3.97 L (4.50-5.90) M/MM3 Hgb 12.8 L (13.5-17.5) GM/DL Hct 41.1 (41-53) % Plt Count 279 (130-400) T/MM3 Comprehensive Metabolic Panel 10/02/17 Range/Units 04:02 Sodium 145 (136-146) MEQ/L Potassium 4.4 (3.6-5) MEQ/L Chloride 103 (98-107) MEQ/L Carbon Dioxide 31 H (22-30) MEQ/L BUN 53.0 H* (9-20) MG/DL Creatinine 1.9 H D (0.8-1.5) mg/dL Glucose 127 H (75-110) MG/DL Calcium 7.7 L D (8.4-10.2) MG/DL Intake and Output 10/01/17 10/02/17 10/02/17 22:59 06:59 14:59 Intake Total 400 / 400 200 / 200 1096 / 1096 Output Total 1045 / 1045 1000 / 1000 Balance -645 / -645 -800 / -800 1096 / 1096 Intake: Oral 400 / 400 200 / 200 1096 / 1096 Output: Urine Amount (Catheter) 1045 / 1045 1000 / 1000 Other: Urine Appearance Clear Clear Urine Color Yellow Yellow Urine Odor Normal Normal # Voids 1 Weight 128.4 kg 127.2 kg Patient Weight 10/03/17 06:59 Weight 127.2 kg - Imaging and Cardiology Echo: report reviewed Holter: image reviewed Assessment and Plan - Assessment and Plan (1) Atrial fibrillation with RVR Current visit: Yes Status: Resolved (2) NSTEMI (non-ST elevated myocardial infarction) Current visit: Yes Status: Acute (3) Coronary artery disease Current visit: Yes Status: Chronic (4) Nonischemic cardiomyopathy Current visit: Yes Status: Chronic (5) Dilated cardiomyopathy Current visit: Yes Status: Chronic (6) Peripheral vascular disease Current visit: Yes Status: Chronic (7) Hypertension Current visit: Yes Status: Chronic (8) Diabetes Current visit: Yes Status: Chronic (9) Chronic kidney disease Current visit: Yes Status: Chronic (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 - Received Cardizem boluses and Cardizem gtt at 15 mg/hr and HR 160's - will DC oral Cardizem now that we have rate control 10/02 - Received metoprolol 5mg q 6 hrs with parameters and HR came down to 140's. - Started amiodarone bolus and gtt per protocol and HR decreased 100's - 120' s - now on oral Amiodarone 200mg po daily - metoprolol tartrate 25mg po QID (takes metoprolol succinate 100mg daily at home) - increase Metoprolol Tartrate to 50mg po BID 10/02 - Converted at approximately 2000 on 09/28/17 - TSH 2.93 - Monitor lytes to maintain K>4, Mg>2 - Continue PO Amiodarone and Cardizem - RADHA without thrombus, DCCV unsuccessful on 09/28/2017 - Echo: EF 15-20%, Severe global hypokinesis, MOSES, LAD, mod-severe MR, dilated IVC, PAP 50-60 - Continue Eliquis 5 mg PO BID NSTEMI Type II/Demand ischemia - likely due to A-fib w RVR - Trop flat at 0.18 Acute Hypoxic Respiratory Failure due to CHF - Diuresing well; progressive improvement in oxygenation. - Leukocytosis resolved, no fever or sputum production to suggest active infection. - Initial Gram stain of induced sputum noted, await culture results. - Chest x-ray: improving aeration and decreased edema - Managed per medicine Mild CAD per [address] Jean-Baptiste - stenosis no greater than 30% ( report on chart). - cont ASA, BB, and start statin. - Outpatient stress test when he recovers Hx NICM, DCM/ Acute on Chronic Systolic Heart failure - 07/08/2014 Heart cath: EF 25%, - 10/16/2014 echo: EF 50-55%, LVH, DD, BAD, RVE, mild MR/TR/MD, PAP 39. - with SOB, SAHU, orthopnea, - BNP 4960 (9960) - Started on Bumex gtt on 09/27/2017-6kg weight loss - Change to Bumex 2 mg PO BID - takes torsemide at home as prescribed by renal - on hold for now. - Echo: EF 15-20%, Severe global hypokinesis, MOSES, LAD, mod-severe MR, dilated IVC, PAP 50-60 - Will need routine f/u with nephrology - CXR: improving aeration and decreased edema Mitral Regurgitation - Moderate to Severe per Echo - Medical management Pulmonary Hypertension due to Systolic CHF - Dilated IVC, PAP 50-60 mm Hg per Echo - CXR: improving aeration and decreased edema - Bumex 2 mg PO BID - Medical Management PVD - s/p 2016 left fem-pop bypass. - s/p left great toe amputation. - cont ASA and and start atorvastatin - feet warm, no wounds. HTN - hold home lisinopril and may want to consider Entresto but will need to monitor renal function closely DMT2 - FBS and 2 hr pc - Continue Levemir and Novolog KM on CKD Stage 2 likely due to prerenal azothemia as a result of severe systolic dysfunction - monitor Cr. Bad tooth on left side of mouth for the last month. - states he plans to go to the dentist but concerned about the cost Chinchilla's Palsy. 09/28/17 - RADHA without thrombus, DCCV unsuccessful yesterday, see report - EF 10-15%, medical management - Rate remains elevated in the 120-130s. - Start diltiazem IR 60mg Q6h, and wean drip as able - Increase diltiazem to 90mg in 6 hours if rate is consistently >100 - Continue diuresis with Bumex drip - monitor renal and electrolytes - chest x-ray in the am 09/29/17 - Converted to SR last evening, Continue Metoprolol, continue Cardizem IR until 0030 dose then DC - Cardizem CD 240 daily in am, Amiodarone 200mg daily, Eliquis 5mg BID - Stop Heparin and Amiodarone drips - CXR: Worsening airspace consolidation in the left upper lobe. - WBC up to 16.4, continues to cough - Consult hospitalist for further evaluation - K+ 3.3/ Mag 1.5, replace to keep K+ >4.0, Mag >2.0 - BNP pending 09/30/17 - Remains in SR - Bumex gtt stopped, started Bumex 2mg IV TID - WBC trending down - CXR in the am 10/01/17 - Remains in SR - Change to Bumex 2 mg PO BID - WBC WNL - Improved oxygenation 10/02/17 - DC Cardizem now that we have heart rate control as CCB can worsen CHF in a patient with Systolic HF - Obtain alarm security or surveillance monitor QTc - Restart Lisinopril at 2.5mg daily and monitor BP - hold for SBP less than 110 - May want to consider starting Entresto at next office visit - Ordered Life Vest 10/02/17 and will be placed before discharge - RN public area supervisor notified and will place order - DC Metoprolol Tartrate as we will start Coreg 3.125mg BID for CHF and HR control - DC Bumex 2mg po BID ad patient's BUN rising - may be over diuresing - Start Bumex 1mg po daily starting tomorrow 10/03 - Stop KCL now that Bumex has been decreased - Would like to place patient on Spironolactone 25mg po daily starting tomorrow 10/03 if he will tolerate - Will need to monitor labs closely once discharged - consider weekly lab X 2 and then monthly X 2 until stable on the new diuretic regimen - Patient tolerating Eliquis for stroke prevention - Decrease Asa to 81mg po Daily - Last HC 07/08/2014 revealing EF approx 25% and mild CAD - Last Echo in clinic chart 10/16/2014 EF 50 to 55% Hospital Course Summary Disclaimer: The visit summary below is not to be considered part of the above Progress Note. Hospital Course: Impression Acute respiratory failure with hypoxia- Currently on Vapotherm at 18L New onset A-fibulation with RVR- Now converted Leukocytosis Hypokalemia Hypomagnesium Coronary artery disease Chronic kidney disease Type II diabetes Peripheral Vascular disease Hypertension Dyslipidemia Congestive heart failure History of tobacco use Chinchilla's palsy Plan Continued cardiac orders and care as per Dr Church- covering for Dr Jean-Baptiste Continues on amiodarone drip currently. Currently on Bumex drip for diuresing. Monitor weight, Urine output, and renal function carefully Obtain Sputum culture. Encourage use of Acapella Could consider treating with Antibiotic coverage for pulmonary given persistent Leukocytosis Mild hypokalemia- Given PO supplementation 40 meq today Hypomagnesium was treatment with IV magnesium supplementation 2 gm this morning. Recheck Tomorrow Continue on Vapotherm at 18 L. Exact etiology of hypoxia is unclear, Likely multifactorial. May want to consider Pulmonary consultation. Recheck CBC, BMP, magnesium tomorrow morning to follow blood counts, renal function and electrolytes Discussed case with attending, Dr. Luevano <Thang Jean-Baptiste - Last Filed: 10/02/17 19:27> Subjective Interval history: I have evaluated the patient today and determined this plan of care. I feel that this patient has had Systolic Heart failure for greater than 3 months and he needs and ICD I will have patient see me in office in approx 1 weeks post discharge to schedule him for the ICD implant to be performed electively as an outpatient. This patient is in agreement with this plan of care. We have made significant medication adjustments therefore, we will be able to discharge patient in 1 to 2 days if he tolerates medications well. The patient is on Hydralazine and we will add Imdur 30mg in a patient with LV systolic dysfunction who can not take ALISA-I or ARB therapy. We will DC Aspirin and continue anticoagulation therapy Exam Vital signs: Temperature 96.5 F L 10/02/17 16:00 Pulse Rate 67 08/06/18 16:00 Respiratory Rate 16 10/02/17 16:00 Blood Pressure 144/81 H 10/02/17 16:00 Pulse Oximetry 94 10/02/17 16:00 Inpatient Medications: Generic Name Dose Route Start Last Admin Trade Name Freq PRN Reason Stop Dose Admin Acetaminophen 1,300 mg 09/27/17 00:17 09/30/17 21:39 Tylenol Arthritis 650 Mg Sr PO 1,300 mg Q8H PRN Administration Pain Amiodarone HCl 200 mg 09/29/17 14:15 10/02/17 08:08 Pacerone PO 200 mg DAILY LINDA Administration Apixaban 5 mg 09/29/17 21:00 10/02/17 08:09 Eliquis PO 5 mg BID LINDA Administration Aspirin 81 mg 10/03/17 09:00 Asa PO DAILY LINDA Atorvastatin Calcium 40 mg 09/30/17 21:00 10/01/17 21:09 Lipitor PO 40 mg HS [facility] Administration Bumetanide 1 mg 10/03/17 09:00 Bumex 1 Mg Tab PO DAILY LINDA Carvedilol 3.125 mg 10/02/17 17:30 10/02/17 17:15 Coreg PO 3.125 mg BIDWM LINDA Administration Chlorpheniramine Maleate 4 mg 09/27/17 11:45 Chlor-Trimeton PO PRN PRN For allergic rhinitis Cholecalciferol 5,000 unit 10/03/17 09:00 Vit. D-3 PO DAILY [facility] Dextromethorphan Polistirix 30 mg 09/27/17 11:46 Delsym Ext-Release PO Q12H PRN For cough Docusate Sodium 100 mg 09/28/17 16:15 10/02/17 08:10 Colace PO 100 mg DAILY [facility] Administration Gabapentin 100 mg 09/27/17 09:00 10/02/17 08:09 Neurontin PO 100 mg QAM LINDA Administration Gabapentin 300 mg 09/27/17 21:00 10/01/17 21:09 Neurontin PO 300 mg HS LINDA Administration Hydralazine HCl 50 mg 09/28/17 08:00 10/02/17 17:15 Apresoline PO 50 mg TIDWM LINDA Administration Insulin Aspart 1 - 5 unit 09/29/17 15:39 10/02/17 15:31 Novolog SQ 2 unit SS PRN Administration Hyperglycemia Protocol Insulin Aspart 17 unit 10/01/17 17:30 10/02/17 17:15 Novolog SQ 17 unit BIDWM LINDA Administration Insulin Detemir 15 unit 10/01/17 21:00 10/02/17 08:06 Levemir SQ 15 unit BID LINDA Administration Metoprolol Tartrate 5 mg 09/30/17 14:57 Lopressor IVP Q6H PRN Nitroglycerin 0.4 mg 09/27/17 01:39 Nitrostat SL Q5MIN3 PRN Chest pain Omeprazole 20 mg 09/27/17 06:30 10/02/17 05:55 Prilosec PO 20 mg ACB LINDA Administration Ondansetron HCl 4 mg 09/27/17 01:39 Zofran IVP Q6H PRN Nausea &/or vomiting Sodium Chloride 10 - 80 ml 09/26/17 18:36 10/01/17 17:52 Iv Flush IVF 20 ml PRN PRN Administration Flushing Zolpidem Tartrate 5 mg 09/28/17 05:15 Ambien PO HS PRN Insomnia Discontinued Medications Generic Name Dose Route Start Last Admin Trade Name Freq PRN Reason Stop Dose Admin Amiodarone HCl 150 mg 09/26/17 19:52 09/27/17 07:15 Amiodarone IV 09/26/17 19:53 Not Given O ONE Amiodarone HCl 150 mg 09/27/17 00:16 09/27/17 00:29 Amiodarone IV 09/27/17 00:17 150 mg O ONE Administration Aspirin 325 mg 09/27/17 09:00 10/02/17 08:09 Asa PO 325 mg DAILY LINDA Administration Bumetanide 2 mg 09/27/17 14:24 09/27/17 15:02 Bumex 1 Mg/4 Ml Inj. IVP 09/27/17 14:25 2 mg O ONE Administration Bumetanide 2 mg 09/30/17 17:00 Bumex 1 Mg Tab PO [id number] LINDA Bumetanide 2 mg 09/30/17 17:00 10/01/17 14:58 Bumex 1 Mg/4 Ml Inj. IVP 2 mg TID LINDA Administration Bumetanide 2 mg 10/02/17 09:00 10/02/17 08:09 Bumex 1 Mg Tab PO 2 mg BID LINDA Administration Cholecalciferol 800 unit 10/03/17 09:00 Vit. D-3 PO DAILY LINDA Diltiazem HCl 20 mg 09/26/17 18:57 09/26/17 19:04 Cardizem 25 Mg Inj IVP 09/26/17 18:58 20 mg O ONE Administration Diltiazem HCl 25 mg 09/26/17 19:24 09/26/17 19:33 Cardizem 25 Mg Inj IVP 09/26/17 19:25 25 mg O ONE Administration Diltiazem HCl 60 mg 09/28/17 12:30 09/29/17 23:37 Cardizem Ir 60 Mg Tab PO 09/30/17 00:31 60 mg Q6H LINDA Administration Diltiazem HCl 240 mg 09/30/17 09:00 10/02/17 08:10 Cardizem Cd 240 Mg PO 240 mg DAILY LINDA Administration Furosemide 40 mg 09/26/17 21:30 09/26/17 21:27 Lasix 40 Mg/4 Ml IVP 40 mg O LINDA Administration Furosemide 40 mg 09/27/17 06:30 09/27/17 06:58 Lasix 40 Mg/4 Ml IVP 09/27/17 06:31 40 mg O ONE Administration Furosemide 40 mg 09/27/17 17:00 Lasix 40 Mg/4 Ml IVP Q8HR LINDA Heparin Sodium (Beef Lung) 4,000 unit 09/26/17 19:52 09/26/17 20:07 Heparin Bolus IVP 09/26/17 19:53 4,000 unit O ONE Administration Heparin Sodium (Beef Lung) 5,000 unit 09/27/17 23:49 09/27/17 23:56 Heparin Bolus IVP 09/27/17 23:50 5,000 unit O ONE Administration Heparin Sodium (Beef Lung) 7,000 unit 09/28/17 09:00 09/28/17 09:08 Heparin Bolus IVP 09/28/17 09:01 7,000 unit O ONE Administration Heparin Sodium (Beef Lung) 7,000 unit 09/28/17 18:45 09/28/17 19:32 Heparin Bolus IVP 09/28/17 18:46 7,000 unit O ONE Administration Heparin Sodium (Beef Lung) 4,500 unit 09/29/17 07:30 09/29/17 08:37 Heparin Bolus IVP 09/29/17 07:31 4,500 unit O ONE Administration Heparin Sodium (Porcine) 1 each 09/27/17 22:36 09/28/17 00:22 Pharmacy Consult - Heparin 09/27/17 22:37 1 each O ONE Administration Hydralazine HCl 50 mg 09/28/17 05:21 09/28/17 05:33 Apresoline PO 09/28/17 05:22 Not Given O ONE Sodium Chloride 1,000 mls @ 999.9 mls/hr 09/26/17 18:59 09/26/17 19:45 Normal Saline IV 09/26/17 19:58 Infused .Q1H ONE Infusion Amiodarone HCl 450 mg/ Sodium 250 mls @ 33.33 mls/hr 09/26/17 19:54 09/27/17 07:01 Chloride IV 09/27/17 01:54 Not Given .Q7H31M LINDA 1 MG/MIN Heparin Sodium (Porcine) 20,000 unit in 500 mls @ 52.5 mls/hr 09/26/17 19:54 09/29/17 14:35 Heparin Drip IV Infused .Q9H32M LINDA Titration Protocol Diltiazem HCl 125 mg/ Sodium 125 mls @ 5 mls/hr 09/26/17 21:30 09/29/17 14:35 Chloride IV Infused .Q24H LINDA Infusion Protocol Amiodarone HCl 900 mg/ Sodium 500 mls @ 16.66 mls/hr 09/27/17 00:53 09/29/17 14:35 Chloride IV Infused .Q24H LINDA Infusion 0.5 MG/MIN Amiodarone HCl 450 mg/ Sodium 250 mls @ 33.33 mls/hr 09/27/17 00:53 09/27/17 09:00 Chloride IV 09/27/17 06:53 Infused .Q7H31M LINDA Infusion 1 MG/MIN Bumetanide 25 mg/ IV Solution 100 mls @ 4 mls/hr 09/27/17 15:30 09/30/17 14: 00 IV Infused .Q24H LINDA Infusion 1 MG/HR Magnesium Sulfate/Dextrose 1 gm in 100 mls @ 100 mls/hr 09/29/17 10:33 13:00 Mag Sulf 1gm Premix IV 09/29/17 12:32 Infused Q1H LINDA Infusion Insulin Aspart 15 unit 09/27/17 08:00 10/01/17 08:48 Novolog SQ 15 unit BIDWM LINDA Administration Insulin Detemir 15 unit 09/27/17 09:00 09/29/17 08:36 Levemir SQ 15 unit BID LINDA Administration Insulin Detemir 17 unit 09/29/17 21:00 10/01/17 08:48 Levemir SQ 17 unit BID LINDA Administration Metoprolol Tartrate 5 mg 09/27/17 00:15 09/30/17 10:21 Lopressor IVP 5 mg Q6HR LINDA Administration Metoprolol Tartrate 25 mg 09/27/17 08:00 10/02/17 08:10 Lopressor PO 25 mg [facility] LINDA Administration Non-Formulary Medication 2 tab 09/27/17 00:17 Chlorpheniramine/Dextromethorp [Coricidin Hbp Cough & Cold Tab] PO PRN PRN PRN orders Non-Formulary Medication 15 unit 09/27/17 09:00 Insulin Detemir [Levemir Flextouch] SQ BID LINDA Non-Formulary Medication 25 unit 09/27/17 09:00 Insulin Lispro-Do Not Expunge SQ BID LINDA Potassium Chloride 40 meq 09/27/17 00:22 09/27/17 00:37 K-Dur 20 Meq Tablet PO 09/27/17 00:23 40 meq O ONE Administration Potassium Chloride 20 meq 09/27/17 17:30 10/02/17 12:05 K-Dur 20 Meq Tablet PO Not Given TIDWM LINDA Potassium Chloride 20 meq 09/28/17 05:18 09/28/17 05:33 K-Dur 20 Meq Tablet PO 09/28/17 05:19 Not Given O ONE Potassium Chloride 40 meq 09/29/17 10:32 09/29/17 11:56 K-Dur 20 Meq Tablet PO 09/29/17 10:33 40 meq O ONE Administration Potassium Chloride 40 meq 09/30/17 14:05 09/30/17 14:50 K-Dur 20 Meq Tablet PO 09/30/17 14:06 40 meq O ONE Administration Potassium Chloride 40 meq 09/30/17 14:15 09/30/17 17:39 K-Dur 20 Meq Tablet PO 09/30/17 14:16 40 meq ONCE ONE Administration - Urinary Catheter Management Urethral Cath placed during this visit: no Results 10/02/17 04:02 10/02/17 04:02 CBC 10/02/17 Range/Units 04:02 WBC 10.7 (4.5-11.0) T/MM3 RBC 3.97 L (4.50-5.90) M/MM3 Hgb 12.8 L (13.5-17.5) GM/DL Hct 41.1 (41-53) % Plt Count 279 (130-400) T/MM3 Comprehensive Metabolic Panel 10/02/17 Range/Units 04:02 Sodium 145 (136-146) MEQ/L Potassium 4.4 (3.6-5) MEQ/L Chloride 103 (98-107) MEQ/L Carbon Dioxide 31 H (22-30) MEQ/L BUN 53.0 H* (9-20) MG/DL Creatinine 1.9 H D (0.8-1.5) mg/dL Glucose 127 H (75-110) MG/DL Calcium 7.7 L D (8.4-10.2) MG/DL Intake and Output 10/02/17 10/02/17 10/02/17 06:59 14:59 22:59 Intake Total 200 / 200 1336 / 1336 750 / 750 Output Total 1000 / 1000 1350 / 1350 Balance -800 / -800 1336 / 1336 -600 / -600 Intake: Oral 200 / 200 1336 / 1336 750 / 750 Output: Urine 1350 / 1350 Urine Amount (Catheter) 1000 / 1000 Other: Urine Appearance Clear Urine Color Yellow Yellow Urine Odor Normal Weight 127.2 kg Patient Weight 10/03/17 06:59 Weight 127.2 kg Assessment and Plan - Assessment and Plan (1) Atrial fibrillation with RVR Current visit: Yes Status: Resolved (2) NSTEMI (non-ST elevated myocardial infarction) Current visit: Yes Status: Acute (3) Coronary artery disease Current visit: Yes Status: Chronic (4) Nonischemic cardiomyopathy Current visit: Yes Status: Chronic (5) Dilated cardiomyopathy Current visit: Yes Status: Chronic (6) Peripheral vascular disease Current visit: Yes Status: Chronic (7) Hypertension Current visit: Yes Status: Chronic (8) Diabetes Current visit: Yes Status: Chronic (9) Chronic kidney disease Current visit: Yes Status: Chronic (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 Addendum entered and electronically signed by LIVIER Carreon 10/02/17 14: 47: Patient declines LifeVest - he understands the risks and benefits of the Life Vest and continues to decline the therapy
[2017-10-02] MEDS: INSULIN ASPART 100unit/ml INJECTION SQ PRN (15:31)
[2017-10-02] MEDS: CARVEDILOL 3.125 MG TABLET PO SCH (17:15)
[2017-10-02] MEDS: ATORVASTATIN 40 MG TABLET PO SCH (20:12)
[2017-10-02] MEDS: GABAPENTIN 300 MG CAPSULE PO SCH (20:12)
[2017-10-03] MEDS: ISOSORBIDE MONONITRATE ER 30 MG TABLET PO SCH (06:35)
[2017-10-03] MEDS: OMEPRAZOLE 20 MG CAPSULE PO SCH (06:35)
--- NOTE | 2017-10-03 08:46 | Progress Note ---
- Date 10/03/17 Subjective: Jordon is doing well today. He denies any symptoms -- specifically, no chest pain, dyspnea, dizziness, weakness, abd pain, n/v/d. He has been eating/ drinking well. He was breathing comfortably on room air. He is ready for the catheter to be removed and can feel his bladder filling when it's clamped. Patient again declined life vest in our discussion. Objective Vital signs: Temperature 96.4 F L 10/03/17 07:34 Pulse Rate 68 10/03/17 07:34 Respiratory Rate 16 10/03/17 07:34 Blood Pressure 138/68 10/03/17 07:34 Pulse Oximetry 90 10/03/17 07:34 Rhythm: Normal Sinus Rhythm Height/Weight/BMI: Height 1.85 m Weight 129 kg Body Mass Index 37.0 - Constitutional Present: no acute distress, well nourished, well developed - Routine HEENT Exam Head: Present: normocephalic Eye: Present: PERRL. Absent: conjunctival icterus, scleral injection - Routine Respiratory Exam Present: decreased breath sounds (bases) - Routine Cardiovascular Exam Present: RRR, S1, S2 - Routine Abdominal Exam Present: soft, normoactive bowel sounds, non distended, non tender - Routine Exam Comments: Venegas - Routine Extremities Exam Present: edema (trace BLE) - Routine Skin Exam Present: intact, dry, warm - Routine Neurological Exam Present: alert, oriented X3, CN II-XII intact, normal speech - Routine Psychiatric Exam Present: normal affect, normal thought process, cooperative Results - Labs CBC & Chem 7: 10/02/17 04:02 10/03/17 03:51 Microbiology Results: Microbiology 09/29/17 16:00 Sputum, Expectorated Gram Stain - Preliminary 09/29/17 16:00 Sputum, Expectorated Sputum Culture - Final Assessment and Plan Assessment and Plan: Impression Acute respiratory failure with hypoxia - improving New onset A-fibulation with RVR - Now converted NSTEMI Mitral regurgitation Pulmonary HTN Leukocytosis, resolved Hypokalemia - resolved Hypomagnesium - resolved Hypernatremia - resolved Coronary artery disease Hypertension Dyslipidemia Congestive heart failure Peripheral vascular disease Chronic kidney disease, stage III Type II diabetes History of tobacco use Chinchilla's palsy Obesity with BMI 37.0 Plan Renal function continues to improve, creatinine 1.7. Weaned off oxygen this am. INGRID Venegas. Vit D pending. Dr. Jean-Baptiste recommended ICD and Life Vest. Patient declined Life Vest. Multiple medication changes per Dr. Jean-Baptiste: DC Metoprolol Tartrate started Coreg 3.125 mg BID Decreased Bumex to 1 mg daily DC KDur DC ASA Added Imdur 30 mg Considered spironolactone 25 mg daily, Lisinopril 2.5 mg DVT Prophylaxis: Eliquis GI Prophylaxis: Omeprazole Resuscitation Status: Full Code - Time spent with patient Time with patient PN: 25 minutes - Physician Narrative Physician: Albert Bustillo MD Narrative: Date: 10/03/17 Time: 1411 Have independently interviewed and examined pt. Chart reviewed. Case discussed with my TAG MA[employer]ER. Care plan developed with my supervision; agree with above. Doing well this afternoon. Venegas removed-has urinated well since removal. No pain or burning, feels is emptying his bladder. Breathing stable. Has been weaned off O2. Notes some SOA at time with activities. No cough, congestion. Denies pain with breathing. Walking in halls to help strength. Eating well-no ab pain or nausea. Bowels stable. No f/c. Blood sugars stable. Lungs: decreased bilaterally, no distress CV: irregularly irregular AB: soft nt/nd MSE: awake alert appropriate Plan: Continue with supportive care. Medication adjustments made by cardiology being tolerated well. Renal status improving. Blood sugars stable. Strength increasing. Overall, making gains. Hospital Course Summary Disclaimer: The visit summary below is not to be considered part of the above Progress Note. Hospital Course: Impression Acute respiratory failure with hypoxia- Currently on Vapotherm at 18L New onset A-fibulation with RVR- Now converted Leukocytosis Hypokalemia Hypomagnesium Coronary artery disease Chronic kidney disease Type II diabetes Peripheral Vascular disease Hypertension Dyslipidemia Congestive heart failure History of tobacco use Chinchilla's palsy Plan Continued cardiac orders and care as per Dr Church- covering for Dr Jean-Baptiste Continues on amiodarone drip currently. Currently on Bumex drip for diuresing. Monitor weight, Urine output, and renal function carefully Obtain Sputum culture. Encourage use of Acapella Could consider treating with Antibiotic coverage for pulmonary given persistent Leukocytosis Mild hypokalemia- Given PO supplementation 40 meq today Hypomagnesium was treatment with IV magnesium supplementation 2 gm this morning. Recheck Tomorrow Continue on Vapotherm at 18 L. Exact etiology of hypoxia is unclear, Likely multifactorial. May want to consider Pulmonary consultation. Recheck CBC, BMP, magnesium tomorrow morning to follow blood counts, renal function and electrolytes Discussed case with attending, Dr. Luevano
[2017-10-03] MEDS: BUMETANIDE 1 MG TABLET PO SCH (08:58)
[2017-10-03] MEDS: HYDRALAZINE 25 MG TABLET PO SCH ×3 (08:58→18:02)
[2017-10-03] MEDS: GABAPENTIN 100 MG CAPSULE PO SCH (08:59)
[2017-10-03] MEDS: APIXABAN 5 MG TABLET PO SCH ×2 (08:59→21:33)
[2017-10-03] MEDS: CARVEDILOL 3.125 MG TABLET PO SCH ×2 (08:59→18:02)
[2017-10-03] MEDS: DOCUSATE SODIUM 100 MG CAPSULE PO SCH (08:59)
[2017-10-03] MEDS ORDERED: ASPIRIN 81 MG CHEWABLE TABLET PO SCH (09:00)
[2017-10-03] MEDS: INSULIN ASPART 100unit/ml INJECTION SQ SCH ×2 (09:09→18:02)
[2017-10-03] MEDS: INSULIN DETEMIR 100unit/ml INJECTION SQ SCH ×2 (09:09→21:33)
[2017-10-03] MEDS: AMIODARONE 200 MG TABLET PO SCH (09:09)
[2017-10-03] MEDS: INSULIN ASPART 100unit/ml INJECTION SQ PRN ×2 (18:02→21:34)
--- NOTE | 2017-10-03 18:36 | Discharge Summary ---
Discharge Information Date of admission: 09/26/17 20:23 Attending Physician: Abhishek Church MD Primary care physician: Alfonzo Connolly DO Consults: 09/29/17 12:29 Physician Consult [CONS] Routine Consulting Provider: Shi Shannon Reason For Exam: leukocytosis, cough Ordering Provider has Notified Pet Groomer: Yes 10/02/17 14:22 Physician Consult [CONS] Routine Consulting Provider: [facility] Reason For Exam: CONT CARE Ordering Provider has Notified Pet Groomer: Yes - Discharge Diagnosis (1) Atrial fibrillation with RVR Status: Resolved (2) NSTEMI (non-ST elevated myocardial infarction) Status: Acute (3) Coronary artery disease Status: Chronic (4) Nonischemic cardiomyopathy Status: Chronic (5) Dilated cardiomyopathy Status: Chronic (6) Peripheral vascular disease Status: Chronic (7) Hypertension Status: Chronic (8) Diabetes Status: Chronic (9) Chronic kidney disease Status: Chronic (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 He sees Isidro [facility] at [facility]. He has not seen Dr. Jean-Baptiste since 2016. For the last 3 days he has been feeling bad and not able to sleep. He has had increasing SOB, SAHU, orthopnea, and PND. He has felt sweaty, feverish, and had a dry cough and feels his lungs filling up with fluid. He denies chest pain, palpitations, racing heart, swelling in legs or abdomen. for the last 2 days, he has had no appetite. He states he just felt "icky". For the last month he has had a bad tooth. but his left side of his face droops due to Chinchilla's Palsy. He saw a local renal doctor one time 2 years ago and he was prescribed torsemide. He takes his meds as prescribed. He lives with his Mother who is able to care for herself. His Mother brought him into ER. In ER ECG: A-fib HR 150, PVC's, NS ST T wave abnormality. Trop 0.18, CBC - mild white blood cell elevation at 14, Neutrophils elevated, but no left shift, Pro BNP 9960, Cr 2.1. CXR -moderate diffuse infiltrative pattern in the bases consistent with pulmonary edema. No focal consolidations are seen that appear to represent any pneumonia In ER he was given Cardizem boluses x2 which did not keep her HR down. Dr. Church was contacted and advised Amiodarone bolus and gtt and heparin gtt. Cardiac Procedures: 07/08/2017 heart cath: EF 25%, svere global hypokinesis, LM, LAD, left circ, marginals, diagonals, and RCA all free of significant lesions with mini=or irregularities and stenosis no greater than 30%. 11/03/2015 AOR: Left SFA occluded prox with reconstitutions mid pop. Left tibial 80%, left anterior tibial and peroneal patent. Right SFA occluded prox with reconstitusion pop atery, infra po patent. Unsuccessful attempt to recanulize the left SFA. He was referred to Dr. Gates, vascular surgeon. 2016 Left fem-pop bypass by Dr. Gates. 10/16/2014 echo: EF 50 - 55%, LVH, DD, BAD, RVE, mild MR, mild TR, mild MN, PAP 39. 11/06/2015 Left great toe amputated. Hospital Course This is a general summary of the patient's hospital course. For more details refer to the complete medical record. Hospital course: Impression Acute respiratory failure with hypoxia- Currently on Vapotherm at 18L New onset A-fibulation with RVR- Now converted Leukocytosis Hypokalemia Hypomagnesium Coronary artery disease Chronic kidney disease Type II diabetes Peripheral Vascular disease Hypertension Dyslipidemia Congestive heart failure History of tobacco use Chinchilla's palsy Plan Continued cardiac orders and care as per Dr Church- covering for Dr Jean-Baptiste Continues on amiodarone drip currently. Currently on Bumex drip for diuresing. Monitor weight, Urine output, and renal function carefully Obtain Sputum culture. Encourage use of Acapella Could consider treating with Antibiotic coverage for pulmonary given persistent Leukocytosis Mild hypokalemia- Given PO supplementation 40 meq today Hypomagnesium was treatment with IV magnesium supplementation 2 gm this morning. Recheck Tomorrow Continue on Vapotherm at 18 L. Exact etiology of hypoxia is unclear, Likely multifactorial. May want to consider Pulmonary consultation. Recheck CBC, BMP, magnesium tomorrow morning to follow blood counts, renal function and electrolytes Discussed case with attending, Dr. Luevano Exam Vital signs: Temperature 97 F 10/03/17 15:09 Pulse Rate 71 10/03/17 15:09 Respiratory Rate 16 10/03/17 15:09 Blood Pressure 129/64 10/03/17 15:09 Pulse Oximetry 91 10/03/17 15:09 Results 10/02/17 04:02 10/03/17 03:51 Comprehensive Metabolic Panel 10/03/17 Range/Units 03:51 Sodium 142 (136-146) MEQ/L Potassium 4.3 (3.6-5) MEQ/L Chloride 103 (98-107) MEQ/L Carbon Dioxide 28 (22-30) MEQ/L BUN 45.0 H (9-20) MG/DL Creatinine 1.7 H D (0.8-1.5) mg/dL Glucose 106 (75-110) MG/DL Calcium 8.1 L (8.4-10.2) MG/DL Intake and Output 10/03/17 10/03/17 10/03/17 06:59 14:59 22:59 Intake Total 910 / 910 420 / 420 Output Total 700 / 700 875 / 875 400 / 400 Balance 210 / 210 -455 / -455 -400 / -400 Intake: Oral 910 / 910 420 / 420 Output: Urine 600 / 600 400 / 400 Urine Amount (Catheter) 700 / 700 275 / 275 Other: Urine Appearance Clear Hematuria Clear Urine Color Dark Yellow Yellow Red Brown Urine Odor Normal Stool Consistency Soft Formed Size of Bowel Movement Large # Voids 1 # Bowel Movements 1 Weight 129 kg Patient Weight 10/04/17 06:59 Weight 129 kg Discharge Plan - Med Rec/Dispo Prescriptions: No Action Hydralazine HCl 50 mg PO TIDWM #0 tab Metoprolol Succinate [Toprol Xl] 100 mg PO DAILY Insulin Lispro [HumaLOG] 25 unit SQ BID Gabapentin 300 mg PO HS Multivit-Min/FA/Lycopen/Lutein [Centrum Silver Tablet] 1 tab PO DAILY Aspirin 325 mg PO DAILY Torsemide [Demadex] 20 mg PO DAILY Lisinopril [Prinivil] 5 mg PO DAILY Chlorpheniramine/Dextromethorp [Coricidin Hbp Cough & Cold Tab] 2 tab PO PRN PRN PRN Reason: Prn Orders Insulin Detemir [Levemir Flextouch] 15 unit SQ BID #0 syringe Acetaminophen [Acetaminophen ER] 1,300 mg PO Q8H PRN PRN Reason: Pain Gabapentin [Neurontin] 100 mg PO QAM
--- NOTE | 2017-10-03 18:41 | Cardiology Progress Note ---
<Carie Trujillo L - Last Filed: 10/03/17 18:46> Subjective Principal diagnosis: dyspnea Interval history: Pt reports feeling well. He denies chest pain, dyspnea or palpitations. He agrees to plan for OP ICD implant given prolonged low EF. He has had numerous medical therapy adjustments this hospital stay. Exam Vital signs: Temperature 97 F 10/03/17 15:09 Pulse Rate 71 10/03/17 15:09 Respiratory Rate 16 10/03/17 15:09 Blood Pressure 129/64 10/03/17 15:09 Pulse Oximetry 91 10/03/17 15:09 Inpatient Medications: Generic Name Dose Route Start Last Admin Trade Name Freq PRN Reason Stop Dose Admin Acetaminophen 1,300 mg 09/27/17 00:17 10/03/17 13:51 Tylenol Arthritis 650 Mg Sr PO 1,300 mg Q8H PRN Administration Pain Amiodarone HCl 200 mg 09/29/17 14:15 10/03/17 09:09 Pacerone PO 200 mg DAILY LINDA Administration Apixaban 5 mg 09/29/17 21:00 10/03/17 08:59 Eliquis PO 5 mg BID LINDA Administration Atorvastatin Calcium 40 mg 09/30/17 21:00 10/02/17 20:12 Lipitor PO 40 mg HS LINDA Administration Bumetanide 1 mg 10/03/17 09:00 10/03/17 08:58 Bumex 1 Mg Tab PO 1 mg DAILY LINDA Administration Carvedilol 3.125 mg 10/02/17 17:30 10/03/17 18:02 Coreg PO 3.125 mg BIDWM LINDA Administration Chlorpheniramine Maleate 4 mg 09/27/17 11:45 Chlor-Trimeton PO PRN PRN For allergic rhinitis Cholecalciferol 5,000 unit 10/03/17 09:00 10/03/17 08:58 Vit. D-3 PO 5,000 unit DAILY LINDA Administration Dextromethorphan Polistirix 30 mg 09/27/17 11:46 Delsym Ext-Release PO Q12H PRN For cough Docusate Sodium 100 mg 09/28/17 16:15 10/03/17 08:59 Colace PO 100 mg DAILY LINDA Administration Gabapentin 100 mg 09/27/17 09:00 10/03/17 08:59 Neurontin PO 100 mg QAM LIDNA Administration Gabapentin 300 mg 09/27/17 21:00 10/02/17 20:12 Neurontin PO 300 mg HS LINDA Administration Hydralazine HCl 50 mg 09/28/17 08:00 10/03/17 18:02 Apresoline PO 50 mg TIDWM LINDA Administration Insulin Aspart 1 - 5 unit 09/29/17 15:39 10/03/17 18:02 Novolog SQ 2 unit SS PRN Administration Hyperglycemia Protocol Insulin Aspart 17 unit 10/01/17 17:30 10/03/17 18:02 Novolog SQ 17 unit BIDWM LINDA Administration Insulin Detemir 15 unit 10/01/17 21:00 10/03/17 09:09 Levemir SQ 15 unit BID LINDA Administration Isosorbide Mononitrate 30 mg 10/03/17 07:00 10/03/17 06:35 Imdur PO 30 mg 0700 LINDA Administration Metoprolol Tartrate 5 mg 09/30/17 14:57 Lopressor IVP Q6H PRN Nitroglycerin 0.4 mg 09/27/17 01:39 Nitrostat SL Q5MIN3 PRN Chest pain Omeprazole 20 mg 09/27/17 06:30 10/03/17 06:35 Prilosec PO 20 mg ACB LINDA Administration Ondansetron HCl 4 mg 09/27/17 01:39 Zofran IVP Q6H PRN Nausea &/or vomiting Sodium Chloride 10 - 80 ml 09/26/17 18:36 10/01/17 17:52 Iv Flush IVF 20 ml PRN PRN Administration Flushing Zolpidem Tartrate 5 mg 09/28/17 05:15 Ambien PO HS PRN Insomnia Discontinued Medications Generic Name Dose Route Start Last Admin Trade Name Freq PRN Reason Stop Dose Admin Amiodarone HCl 150 mg 09/26/17 19:52 09/27/17 07:15 Amiodarone IV 09/26/17 19:53 Not Given O ONE Amiodarone HCl 150 mg 09/27/17 00:16 09/27/17 00:29 Amiodarone IV 09/27/17 00:17 150 mg O ONE Administration Aspirin 325 mg 09/27/17 09:00 10/02/17 08:09 Asa PO 325 mg DAILY LINDA Administration Aspirin 81 mg 10/03/17 09:00 Asa PO DAILY LINDA Bumetanide 2 mg 09/27/17 14:24 09/27/17 15:02 Bumex 1 Mg/4 Ml Inj. IVP 09/27/17 14:25 2 mg O ONE Administration Bumetanide 2 mg 09/30/17 17:00 Bumex 1 Mg Tab PO [id number] LINDA Bumetanide 2 mg 09/30/17 17:00 10/01/17 14:58 Bumex 1 Mg/4 Ml Inj. IVP 2 mg TID LINDA Administration Bumetanide 2 mg 10/02/17 09:00 10/02/17 08:09 Bumex 1 Mg Tab PO 2 mg BID LINDA Administration Cholecalciferol 800 unit 10/03/17 09:00 Vit. D-3 PO DAILY LINDA Diltiazem HCl 20 mg 09/26/17 18:57 09/26/17 19:04 Cardizem 25 Mg Inj IVP 09/26/17 18:58 20 mg O ONE Administration Diltiazem HCl 25 mg 09/26/17 19:24 09/26/17 19:33 Cardizem 25 Mg Inj IVP 09/26/17 19:25 25 mg O ONE Administration Diltiazem HCl 60 mg 09/28/17 12:30 09/29/17 23:37 Cardizem Ir 60 Mg Tab PO 09/30/17 00:31 60 mg Q6H LINDA Administration Diltiazem HCl 240 mg 09/30/17 09:00 10/02/17 08:10 Cardizem Cd 240 Mg PO 240 mg DAILY LINDA Administration Furosemide 40 mg 09/26/17 21:30 09/26/17 21:27 Lasix 40 Mg/4 Ml IVP 40 mg O LINDA Administration Furosemide 40 mg 09/27/17 06:30 09/27/17 06:58 Lasix 40 Mg/4 Ml IVP 09/27/17 06:31 40 mg O ONE Administration Furosemide 40 mg 09/27/17 17:00 Lasix 40 Mg/4 Ml IVP Q8HR LINDA Heparin Sodium (Beef Lung) 4,000 unit 09/26/17 19:52 09/26/17 20:07 Heparin Bolus IVP 09/26/17 19:53 4,000 unit O ONE Administration Heparin Sodium (Beef Lung) 5,000 unit 09/27/17 23:49 09/27/17 23:56 Heparin Bolus IVP 09/27/17 23:50 5,000 unit O ONE Administration Heparin Sodium (Beef Lung) 7,000 unit 09/28/17 09:00 09/28/17 09:08 Heparin Bolus IVP 09/28/17 09:01 7,000 unit O ONE Administration Heparin Sodium (Beef Lung) 7,000 unit 09/28/17 18:45 09/28/17 19:32 Heparin Bolus IVP 09/28/17 18:46 7,000 unit O ONE Administration Heparin Sodium (Beef Lung) 4,500 unit 09/29/17 07:30 09/29/17 08:37 Heparin Bolus IVP 09/29/17 07:31 4,500 unit O ONE Administration Heparin Sodium (Porcine) 1 each 09/27/17 22:36 09/28/17 00:22 Pharmacy Consult - Heparin 09/27/17 22:37 1 each O ONE Administration Hydralazine HCl 50 mg 09/28/17 05:21 09/28/17 05:33 Apresoline PO 09/28/17 05:22 Not Given O ONE Sodium Chloride 1,000 mls @ 999.9 mls/hr 09/26/17 18:59 09/26/17 19:45 Normal Saline IV 09/26/17 19:58 Infused .Q1H ONE Infusion Amiodarone HCl 450 mg/ Sodium 250 mls @ 33.33 mls/hr 09/26/17 19:54 09/27/17 07:01 Chloride IV 09/27/17 01:54 Not Given .Q7H31M LINDA 1 MG/MIN Heparin Sodium (Porcine) 20,000 unit in 500 mls @ 52.5 mls/hr 09/26/17 19:54 09/29/17 14:35 Heparin Drip IV Infused .Q9H32M LINDA Titration Protocol Diltiazem HCl 125 mg/ Sodium 125 mls @ 5 mls/hr 09/26/17 21:30 09/29/17 14:35 Chloride IV Infused .Q24H LINDA Infusion Protocol Amiodarone HCl 900 mg/ Sodium 500 mls @ 16.66 mls/hr 09/27/17 00:53 09/29/17 14:35 Chloride IV Infused .Q24H LINDA Infusion 0.5 MG/MIN Amiodarone HCl 450 mg/ Sodium 250 mls @ 33.33 mls/hr 09/27/17 00:53 09/27/17 09:00 Chloride IV 09/27/17 06:53 Infused .Q7H31M LINDA Infusion 1 MG/MIN Bumetanide 25 mg/ IV Solution 100 mls @ 4 mls/hr 09/27/17 15:30 09/30/17 14: 00 IV Infused .Q24H LINDA Infusion 1 MG/HR Magnesium Sulfate/Dextrose 1 gm in 100 mls @ 100 mls/hr 09/29/17 10:33 13:00 Mag Sulf 1gm Premix IV 09/29/17 12:32 Infused Q1H LINDA Infusion Insulin Aspart 15 unit 09/27/17 08:00 10/01/17 08:48 Novolog SQ 15 unit BIDWM LINDA Administration Insulin Detemir 15 unit 09/27/17 09:00 09/29/17 08:36 Levemir SQ 15 unit BID LINDA Administration Insulin Detemir 17 unit 09/29/17 21:00 10/01/17 08:48 Levemir SQ 17 unit BID LINDA Administration Metoprolol Tartrate 5 mg 09/27/17 00:15 09/30/17 10:21 Lopressor IVP 5 mg Q6HR LINDA Administration Metoprolol Tartrate 25 mg 09/27/17 08:00 10/02/17 08:10 Lopressor PO 25 mg WMHS LINDA Administration Non-Formulary Medication 2 tab 09/27/17 00:17 Chlorpheniramine/Dextromethorp [Coricidin Hbp Cough & Cold Tab] PO PRN PRN PRN orders Non-Formulary Medication 15 unit 09/27/17 09:00 Insulin Detemir [Levemir Flextouch] SQ BID LINDA Non-Formulary Medication 25 unit 09/27/17 09:00 Insulin Lispro-Do Not Expunge SQ BID LINDA Potassium Chloride 40 meq 09/27/17 00:22 09/27/17 00:37 K-Dur 20 Meq Tablet PO 09/27/17 00:23 40 meq O ONE Administration Potassium Chloride 20 meq 09/27/17 17:30 10/02/17 12:05 K-Dur 20 Meq Tablet PO Not Given TIDWM LINDA Potassium Chloride 20 meq 09/28/17 05:18 09/28/17 05:33 K-Dur 20 Meq Tablet PO 09/28/17 05:19 Not Given O ONE Potassium Chloride 40 meq 09/29/17 10:32 09/29/17 11:56 K-Dur 20 Meq Tablet PO 09/29/17 10:33 40 meq O ONE Administration Potassium Chloride 40 meq 09/30/17 14:05 09/30/17 14:50 K-Dur 20 Meq Tablet PO 09/30/17 14:06 40 meq O ONE Administration Potassium Chloride 40 meq 09/30/17 14:15 09/30/17 17:39 K-Dur 20 Meq Tablet PO 09/30/17 14:16 40 meq ONCE ONE Administration - Constitutional no acute distress, cooperative - Routine HEENT Exam Head: Present: normocephalic - Routine Neck Exam Absent: JVD, carotid bruit - Routine Respiratory Exam Present: CTA bilaterally - Routine Abdominal Exam Present: soft, normoactive bowel sounds - Routine Extremities Exam Present: edema (mild BLE) - Routine Skin Exam Present: intact - Routine Neurological Exam Present: alert, oriented X3 - Routine Psychiatric Exam Present: normal affect, normal thought process - Urinary Catheter Management Urethral Cath placed during this visit: yes, but has since been removed by the nurse Urethral indwelling: Yes Insertion date: 09/27/17 Insertion time: 14:49 Removal date: 10/03/17 Removal time: 09:30 Results 10/02/17 04:02 10/03/17 03:51 Comprehensive Metabolic Panel 10/03/17 Range/Units 03:51 Sodium 142 (136-146) MEQ/L Potassium 4.3 (3.6-5) MEQ/L Chloride 103 (98-107) MEQ/L Carbon Dioxide 28 (22-30) MEQ/L BUN 45.0 H (9-20) MG/DL Creatinine 1.7 H D (0.8-1.5) mg/dL Glucose 106 (75-110) MG/DL Calcium 8.1 L (8.4-10.2) MG/DL Intake and Output 10/03/17 10/03/17 10/03/17 06:59 14:59 22:59 Intake Total 910 / 910 420 / 420 Output Total 700 / 700 875 / 875 400 / 400 Balance 210 / 210 -455 / -455 -400 / -400 Intake: Oral 910 / 910 420 / 420 Output: Urine 600 / 600 400 / 400 Urine Amount (Catheter) 700 / 700 275 / 275 Other: Urine Appearance Clear Hematuria Clear Urine Color Dark Yellow Yellow Red Brown Urine Odor Normal Stool Consistency Soft Formed Size of Bowel Movement Large # Voids 1 # Bowel Movements 1 Weight 129 kg Patient Weight 10/04/17 06:59 Weight 129 kg - Imaging and Cardiology Echo: report reviewed - EKG Interpretation EKG: sinus rhythm Assessment and Plan - Assessment and Plan (1) Atrial fibrillation with RVR Status: Resolved (2) NSTEMI (non-ST elevated myocardial infarction) Status: Acute (3) Coronary artery disease Status: Chronic (4) Nonischemic cardiomyopathy Status: Chronic (5) Dilated cardiomyopathy Status: Chronic (6) Peripheral vascular disease Status: Chronic (7) Hypertension Status: Chronic (8) Diabetes Status: Chronic (9) Chronic kidney disease Status: Chronic (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 He is stable for dismissal, given numerous medical therapy changes will monitor over night and plan for dismissal in AM if he tolerates medications well. The patient is on Hydralazine, initiate Imdur 30mg, no ALISA-I or ARB therapy due to renal dysfunction. We will DC Aspirin and continue Eliquis. Continue bumex 1mg daily, potassium lab stable. Creatinine improving 1.7 Hospital Course Summary Disclaimer: The visit summary below is not to be considered part of the above Progress Note. <Thang Jean-Baptiste - Last Filed: 10/12/17 13:43> Exam Vital signs: Temperature 97.3 F 10/04/17 08:00 Pulse Rate 77 10/04/17 08:00 Respiratory Rate 16 10/04/17 08:00 Blood Pressure 157/69 H 10/04/17 08:00 Pulse Oximetry 92 10/04/17 08:00 Inpatient Medications: Discontinued Medications Generic Name Dose Route Start Last Admin Trade Name Freq PRN Reason Stop Dose Admin Acetaminophen 1,300 mg 09/27/17 00:17 10/04/17 10:29 Tylenol Arthritis 650 Mg Sr PO 1,300 mg Q8H PRN Administration Pain Amiodarone HCl 150 mg 09/26/17 19:52 09/27/17 07:15 Amiodarone IV 09/26/17 19:53 Not Given O ONE Amiodarone HCl 150 mg 09/27/17 00:16 09/27/17 00:29 Amiodarone IV 09/27/17 00:17 150 mg O ONE Administration Amiodarone HCl 200 mg 09/29/17 14:15 10/04/17 08:55 Pacerone PO 200 mg DAILY [facility] Administration Apixaban 5 mg 09/29/17 21:00 10/04/17 08:55 Eliquis PO 5 mg BID LINDA Administration Aspirin 325 mg 09/27/17 09:00 10/02/17 08:09 Asa PO 325 mg DAILY [facility] Administration Aspirin 81 mg 10/03/17 09:00 Asa PO DAILY [facility] Atorvastatin Calcium 40 mg 09/30/17 21:00 10/03/17 21:33 Lipitor PO 40 mg HS [facility] Administration Bumetanide 2 mg 09/27/17 14:24 09/27/17 15:02 Bumex 1 Mg/4 Ml Inj. IVP 09/27/17 14:25 2 mg O ONE Administration Bumetanide 2 mg 09/30/17 17:00 Bumex 1 Mg Tab PO [id number] [facility] Bumetanide 2 mg 09/30/17 17:00 10/01/17 14:58 Bumex 1 Mg/4 Ml Inj. IVP 2 mg TID [facility] Administration Bumetanide 2 mg 10/02/17 09:00 10/02/17 08:09 Bumex 1 Mg Tab PO 2 mg BID [facility] Administration Bumetanide 1 mg 10/03/17 09:00 10/04/17 08:55 Bumex 1 Mg Tab PO 1 mg DAILY [facility] Administration Carvedilol 3.125 mg 10/02/17 17:30 10/04/17 08:55 Coreg PO 3.125 mg BIDWM [facility] Administration Chlorpheniramine Maleate 4 mg 09/27/17 11:45 Chlor-Trimeton PO PRN PRN For allergic rhinitis Cholecalciferol 800 unit 10/03/17 09:00 Vit. D-3 PO DAILY LINDA Cholecalciferol 5,000 unit 10/03/17 09:00 10/04/17 08:55 Vit. D-3 PO 5,000 unit DAILY LINDA Administration Dextromethorphan Polistirix 30 mg 09/27/17 11:46 Delsym Ext-Release PO Q12H PRN For cough Diltiazem HCl 20 mg 09/26/17 18:57 09/26/17 19:04 Cardizem 25 Mg Inj IVP 09/26/17 18:58 20 mg O ONE Administration Diltiazem HCl 25 mg 09/26/17 19:24 09/26/17 19:33 Cardizem 25 Mg Inj IVP 09/26/17 19:25 25 mg O ONE Administration Diltiazem HCl 60 mg 09/28/17 12:30 09/29/17 23:37 Cardizem Ir 60 Mg Tab PO 09/30/17 00:31 60 mg Q6H LINDA Administration Diltiazem HCl 240 mg 09/30/17 09:00 10/02/17 08:10 Cardizem Cd 240 Mg PO 240 mg DAILY LINDA Administration Docusate Sodium 100 mg 09/28/17 16:15 10/04/17 08:55 Colace PO 100 mg DAILY LINDA Administration Furosemide 40 mg 09/26/17 21:30 09/26/17 21:27 Lasix 40 Mg/4 Ml IVP 40 mg O LINDA Administration Furosemide 40 mg 09/27/17 06:30 09/27/17 06:58 Lasix 40 Mg/4 Ml IVP 09/27/17 06:31 40 mg O ONE Administration Furosemide 40 mg 09/27/17 17:00 Lasix 40 Mg/4 Ml IVP Q8HR LINDA Gabapentin 100 mg 09/27/17 09:00 10/04/17 08:55 Neurontin PO 100 mg QAM LINDA Administration Gabapentin 300 mg 09/27/17 21:00 10/03/17 21:33 Neurontin PO 300 mg HS LINDA Administration Heparin Sodium (Beef Lung) 4,000 unit 09/26/17 19:52 09/26/17 20:07 Heparin Bolus IVP 09/26/17 19:53 4,000 unit O ONE Administration Heparin Sodium (Beef Lung) 5,000 unit 09/27/17 23:49 09/27/17 23:56 Heparin Bolus IVP 09/27/17 23:50 5,000 unit O ONE Administration Heparin Sodium (Beef Lung) 7,000 unit 09/28/17 09:00 09/28/17 09:08 Heparin Bolus IVP 09/28/17 09:01 7,000 unit O ONE Administration Heparin Sodium (Beef Lung) 7,000 unit 09/28/17 18:45 09/28/17 19:32 Heparin Bolus IVP 09/28/17 18:46 7,000 unit O ONE Administration Heparin Sodium (Beef Lung) 4,500 unit 09/29/17 07:30 09/29/17 08:37 Heparin Bolus IVP 09/29/17 07:31 4,500 unit O ONE Administration Heparin Sodium (Porcine) 1 each 09/27/17 22:36 09/28/17 00:22 Pharmacy Consult - Heparin MC 09/27/17 22:37 1 each O ONE Administration Hydralazine HCl 50 mg 09/28/17 08:00 10/04/17 08:55 Apresoline PO 50 mg TIDWM LINDA Administration Hydralazine HCl 50 mg 09/28/17 05:21 09/28/17 05:33 Apresoline PO 09/28/17 05:22 Not Given O ONE Sodium Chloride 1,000 mls @ 999.9 mls/hr 09/26/17 18:59 09/26/17 19:45 Normal Saline IV 09/26/17 19:58 Infused .Q1H ONE Infusion Amiodarone HCl 450 mg/ Sodium 250 mls @ 33.33 mls/hr 09/26/17 19:54 09/27/17 07:01 Chloride IV 09/27/17 01:54 Not Given .Q7H31M LINDA 1 MG/MIN Heparin Sodium (Porcine) 20,000 unit in 500 mls @ 52.5 mls/hr 09/26/17 19:54 09/29/17 14:35 Heparin Drip IV Infused .Q9H32M LIDNA Titration Protocol Diltiazem HCl 125 mg/ Sodium 125 mls @ 5 mls/hr 09/26/17 21:30 09/29/17 14:35 Chloride IV Infused .Q24H LINDA Infusion Protocol Amiodarone HCl 900 mg/ Sodium 500 mls @ 16.66 mls/hr 09/27/17 00:53 09/29/17 14:35 Chloride IV Infused .Q24H LINDA Infusion 0.5 MG/MIN Amiodarone HCl 450 mg/ Sodium 250 mls @ 33.33 mls/hr 09/27/17 00:53 09/27/17 09:00 Chloride IV 09/27/17 06:53 Infused .Q7H31M LINDA Infusion 1 MG/MIN Bumetanide 25 mg/ IV Solution 100 mls @ 4 mls/hr 09/27/17 15:30 09/30/17 14: 00 IV Infused .Q24H LINDA Infusion 1 MG/HR Magnesium Sulfate/Dextrose 1 gm in 100 mls @ 100 mls/hr 09/29/17 10:33 13:00 Mag Sulf 1gm Premix IV 09/29/17 12:32 Infused Q1H LINDA Infusion Insulin Aspart 15 unit 09/27/17 08:00 10/01/17 08:48 Novolog SQ 15 unit BIDWM LINDA Administration Insulin Aspart 1 - 5 unit 09/29/17 15:39 10/03/17 21:34 Novolog SQ 2 unit SS PRN Administration Hyperglycemia Protocol Insulin Aspart 17 unit 10/01/17 17:30 10/04/17 08:55 Novolog SQ 17 unit BIDWM LINDA Administration Insulin Detemir 15 unit 09/27/17 09:00 09/29/17 08:36 Levemir SQ 15 unit BID LINDA Administration Insulin Detemir 17 unit 09/29/17 21:00 10/01/17 08:48 Levemir SQ 17 unit BID LINDA Administration Insulin Detemir 15 unit 10/01/17 21:00 10/04/17 08:54 Levemir SQ 15 unit BID LINDA Administration Isosorbide Mononitrate 30 mg 10/03/17 07:00 10/04/17 06:35 Imdur PO 30 mg 0700 LINDA Administration Metoprolol Tartrate 5 mg 09/27/17 00:15 09/30/17 10:21 Lopressor IVP 5 mg Q6HR LINDA Administration Metoprolol Tartrate 25 mg 09/27/17 08:00 10/02/17 08:10 Lopressor PO 25 mg WMHS LINDA Administration Metoprolol Tartrate 5 mg 09/30/17 14:57 Lopressor IVP Q6H PRN Nitroglycerin 0.4 mg 09/27/17 01:39 Nitrostat SL Q5MIN3 PRN Chest pain Non-Formulary Medication 2 tab 09/27/17 00:17 Chlorpheniramine/Dextromethorp [Coricidin Hbp Cough & Cold Tab] PO PRN PRN PRN orders Non-Formulary Medication 15 unit 09/27/17 09:00 Insulin Detemir [Levemir Flextouch] SQ BID LINDA Non-Formulary Medication 25 unit 09/27/17 09:00 Insulin Lispro-Do Not Expunge SQ BID LINDA Omeprazole 20 mg 09/27/17 06:30 10/04/17 06:35 Prilosec PO 20 mg ACB LINDA Administration Ondansetron HCl 4 mg 09/27/17 01:39 Zofran IVP Q6H PRN Nausea &/or vomiting Potassium Chloride 40 meq 09/27/17 00:22 09/27/17 00:37 K-Dur 20 Meq Tablet PO 09/27/17 00:23 40 meq O ONE Administration Potassium Chloride 20 meq 09/27/17 17:30 10/02/17 12:05 K-Dur 20 Meq Tablet PO Not Given TIDWM LINDA Potassium Chloride 20 meq 09/28/17 05:18 09/28/17 05:33 K-Dur 20 Meq Tablet PO 09/28/17 05:19 Not Given O ONE Potassium Chloride 40 meq 09/29/17 10:32 09/29/17 11:56 K-Dur 20 Meq Tablet PO 09/29/17 10:33 40 meq O ONE Administration Potassium Chloride 40 meq 09/30/17 14:05 09/30/17 14:50 K-Dur 20 Meq Tablet PO 09/30/17 14:06 40 meq O ONE Administration Potassium Chloride 40 meq 09/30/17 14:15 09/30/17 17:39 K-Dur 20 Meq Tablet PO 09/30/17 14:16 40 meq ONCE ONE Administration Sodium Chloride 10 - 80 ml 09/26/17 18:36 10/01/17 17:52 Iv Flush IVF 20 ml PRN PRN Administration Flushing Zolpidem Tartrate 5 mg 09/28/17 05:15 Ambien PO HS PRN Insomnia - Urinary Catheter Management Urethral Cath placed during this visit: no Results 10/02/17 04:02 10/04/17 05:35 Assessment and Plan - Assessment and Plan (1) Atrial fibrillation with RVR Status: Resolved (2) NSTEMI (non-ST elevated myocardial infarction) Status: Acute (3) Coronary artery disease Status: Chronic (4) Nonischemic cardiomyopathy Status: Chronic (5) Dilated cardiomyopathy Status: Chronic (6) Peripheral vascular disease Status: Chronic (7) Hypertension Status: Chronic (8) Diabetes Status: Chronic (9) Chronic kidney disease Status: Chronic (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 I am involved in the formulation of the patient's plan of care. Hospital Course Summary Disclaimer: The visit summary below is not to be considered part of the above Progress Note.
[2017-10-03] MEDS: GABAPENTIN 300 MG CAPSULE PO SCH (21:33)
[2017-10-03] MEDS: ATORVASTATIN 40 MG TABLET PO SCH (21:33)
[2017-10-04] MEDS: OMEPRAZOLE 20 MG CAPSULE PO SCH (06:35)
[2017-10-04] MEDS: ISOSORBIDE MONONITRATE ER 30 MG TABLET PO SCH (06:35)
--- NOTE | 2017-10-04 08:08 | Discharge Summary ---
<Shaila Pittman - Last Filed: 10/04/17 16:25> Discharge Information Date of admission: 09/26/17 20:23 Anticipated date of discharge: 10/04/17 (Stable) Attending Physician: Abhishek Church MD Primary care physician: Alfonzo Connolly DO Consults: 09/29/17 12:29 Physician Consult [CONS] Routine Consulting Provider: Shi Shannon Reason For Exam: leukocytosis, cough Ordering Provider has Notified Osteopathic Physician: Yes 10/02/17 14:22 Physician Consult [CONS] Routine Consulting Provider: [facility] Reason For Exam: CONT CARE Ordering Provider has Notified Osteopathic Physician: Yes - Discharge Diagnosis (1) Atrial fibrillation with RVR Status: Resolved (2) NSTEMI (non-ST elevated myocardial infarction) Status: Acute (3) Coronary artery disease Status: Chronic (4) Nonischemic cardiomyopathy Status: Chronic (5) Dilated cardiomyopathy Status: Chronic (6) Peripheral vascular disease Status: Chronic (7) Hypertension Status: Chronic (8) Diabetes Status: Chronic (9) Chronic kidney disease Status: Chronic (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 Transesophageal echocardiography. 2. Synchronized direct current cardioversion. INDICATIONS Mr. Rosa is a 62-year-old male with known cardiomyopathy who presented with symptoms of acute heart failure exacerbation, also found to be in atrial fibrillation with rapid ventricular response. He was placed on amiodarone and Cardizem infusion overnight. He continued to remain in rapid ventricular response. Due to no response to intravenous agents he was referred for cardioversion. The patient has not been on anticoagulation so we decided to proceed with transesophageal echocardiogram to rule out intracardiac source of thrombus prior to cardioversion. NARRATIVE OF PROCEDURE The procedure was performed in the CCU at the bedside. Risks and benefits of the procedure were explained to the patient at length. Informed consent was obtained. The patient received intravenous midazolam 3 mg and intravenous Fentanyl 100 mg for conscious sedation. After sedation the probe was inserted without difficulty. Multiple transesophageal and transgastric views were obtained and the probe was removed. The patient at this point developed some apneic episodes and some oxygen desaturations. The patient was stabilized with brief bag-mask ventilation. We then proceeded with synchronized direct current cardioversion. A single shock was delivered. We were not able to convert the patient from atrial fibrillation. At this point since the patient continued to require high oxygen and from a respiratory standpoint was unstable, we aborted further attempts to cardiovert him. The patient was continuously monitored in CCU after the procedure. SUMMARY OF FINDINGS TRANSESOPHAGEAL ECHOCARDIOGRAM 1. LEFT VENTRICLE: Left ventricle is mildly to moderately enlarged. Mild concentric left ventricular hypertrophy. Significantly reduced left ventricular systolic function noted. Estimated LVEF is about 10%-15%. 2. RIGHT VENTRICLE: Right ventricle appears normal in size. Normal right ventricular systolic function noted. 3. MITRAL VALVE: Dilated mitral annulus. [id number] mitral regurgitation noted. 4. AORTIC VALVE: Aortic valve is trileaflet. There is trivial aortic regurgitation noted. 5. TRICUSPID VALVE: Tricuspid valve structurally normal. There is mild tricuspid regurgitation noted. 6. PULMONIC VALVE: Pulmonic valve is poorly visualized on today's study. 7. LEFT ATRIUM: Left atrium is significantly dilated. No significant thrombus or mass noted. Left atrial appendage is dilated. There is spontaneous echo contrast noted in the left atrial appendage but no thrombus or source of emboli noted. Emptying velocities are significantly reduced. CONCLUSION 1. Transesophageal echocardiography did not reveal any intracardiac source of emboli or left atrial appendage thrombus. There was spontaneous echo contrast noted in the left atrial appendage. 2. Unsuccessful attempt on cardioversion from atrial fibrillation. Patient remained in atrial fibrillation. RECOMMENDATIONS At this time will continue to optimize heart failure management. Aggressively diurese the patient. Continue on amiodarone infusion for now. Once the patient improves from a respiratory standpoint, then cardioversion can be reattempted. - Laboratory Labs: 10/02/17 04:02 10/04/17 05:35 - Microbiology Microbiology 09/29/17 16:00 Sputum, Expectorated Gram Stain - Preliminary 09/29/17 16:00 Sputum, Expectorated Sputum Culture - Final - Radiology Radiology: XRay Report Signed Patient: Jordon Rosa MR#: [id number] : 1955 Age/Sex: 62 / M ADM Date: 09/26/17 Loc: [facility] 6-P DIS Date: = = = = = = = = = = = = = = = = = = = = = = = = = = = = = = = = = = = = = = = = = = = = = = = = = = = = = = = = = = = Date of Exam: 10/01/17 Ordering Provider: Ana Luevano MD Type of Exam(s): XR chest 2V Reason for Exam(s): CHF INDICATION: CHF PROCEDURE: CHEST 2-VIEWS UPRIGHT (PA & LAT) Encounter: Initial COMPARISON: September 29, 2017 FINDINGS: Interval improvement in bilateral areas of airspace opacity. Right PICC line remains in place. Multiple overlying monitoring leads. Trace residual perihilar areas of airspace disease. No significant pleural fluid. No pneumothorax. Heart size and mediastinal contours are stable. Pulmonary vascular congestion has improved. Impression: Improving aeration of the lungs with decreasing edema. . History of Present Illness HPI: 10/04/17 08:08 This is a 62 year old patient with a history of mild CAD, PVD s/p left fem-pop bypass, NICM, HTN, PHTN, DSLD, DMT2, CKD stage 2, anxiety, depression, obesity, and [place]' Palsy. He sees Ledy De at [facility]. He has not seen Dr. Jean-Baptiste since 2016. For the last 3 days he has been feeling bad and not able to sleep. He has had increasing SOB, SAHU, orthopnea, and PND. He has felt sweaty, feverish, and had a dry cough and feels his lungs filling up with fluid. He denies chest pain, palpitations, racing heart, swelling in legs or abdomen. for the last 2 days, he has had no appetite. He states he just felt "icky". For the last month he has had a bad tooth. but his left side of his face droops due to Chinchilla's Palsy. He saw a local renal doctor one time 2 years ago and he was prescribed torsemide. He takes his meds as prescribed. He lives with his Mother who is able to care for herself. His Mother brought him into ER. In ER ECG: A-fib HR 150, PVC's, NS ST T wave abnormality. Trop 0.18, CBC - mild white blood cell elevation at 14, Neutrophils elevated, but no left shift, Pro BNP 9960, Cr 2.1. CXR -moderate diffuse infiltrative pattern in the bases consistent with pulmonary edema. No focal consolidations are seen that appear to represent any pneumonia In ER he was given Cardizem boluses x2 which did not keep his HR down. Dr. Church was contacted and advised Amiodarone bolus and gtt and heparin gtt. Cardiac Procedures: 07/08/2017 heart cath: EF 25%, svere global hypokinesis, LM, LAD, left circ, marginals, diagonals, and RCA all free of significant lesions with mini=or irregularities and stenosis no greater than 30%. 11/03/2015 AOR: Left SFA occluded prox with reconstitutions mid pop. Left tibial 80%, left anterior tibial and peroneal patent. Right SFA occluded prox with reconstitusion pop atery, infra po patent. Unsuccessful attempt to recanulize the left SFA. He was referred to Dr. Gates, vascular surgeon. 2016 Left fem-pop bypass by Dr. Gates. 10/16/2014 echo: EF 50 - 55%, LVH, DD, BAD, RVE, mild MR, mild TR, mild OK, PAP 39. 11/06/2015 Left great toe amputated. Hospital Course A-fib w RVR: new onset likely 3 days prior to admission - HR up to 180 on admit. - Received Cardizem boluses and Cardizem gtt at 15 mg/hr and HR 160's - Received metoprolol 5mg q 6 hrs with parameters and HR came down to 140's. - Started amiodarone bolus and gtt per protocol and HR decreased 100's - 120' s - TSH 2.93 - Monitor lytes to maintain K>4, Mg>2 - Continue PO Amiodarone and Coreg - FERNIE without thrombus, DCCV unsuccessful on 09/28/2017 - Converted to NSR at approximately 2000 on 09/28/17 - Echo: EF 15-20%, Severe global hypokinesis, MOSES, LAD, mod-severe MR, dilated IVC, PAP 50-60 - Chads Vasc Score - 3 - Continue Eliquis 5 mg PO BID NSTEMI - likely due to A-fib w RVR - Trop flat at 0.18 Acute Hypoxic Respiratory Failure - Diuresing well; back to baseline/no O2 - Leukocytosis resolved, no fever or sputum production to suggest active infection. - Initial Gram stain of induced sputum noted, await culture results. - Chest x-ray: improving aeration and decreased edema - Needs to follow up with PCP for further evaluation of ongoing oxygen needs/ overnight oximetry - Managed per medicine Mild CAD per [address] Jean-Baptiste - stenosis no greater than 30% ( report on chart). - cont ASA, BB, and statin - Start Imdur 30 mg PO daily Hx NICM, DCM - 07/08/2014 Heart cath: EF 25%, - 10/16/2014 echo: EF 50-55%, LVH, DD, BAD, RVE, mild MR/TR/OK, PAP 39. - with SOB, SAHU, orthopnea, - BNP 4960 (9960) - Started on Bumex gtt on 09/27/2017-6kg weight loss - Continue Bumex 1 mg PO daily - takes torsemide at home as prescribed by renal - on hold for now. - Echo: EF 15-20%, Severe global hypokinesis, MOSES, LAD, mod-severe MR, dilated IVC, PAP 50-60 - Will need routine f/u with nephrology - CXR: improving aeration and decreased edema - Patient refuses lifevest, but promises to follow up as outpatient to plan for implantable ICD Mitral Regurgitation - Moderate to Severe per Echo - Medical management Pulmonary Hypertension - Dilated IVC, PAP 50-60 mm Hg per Echo - CXR: improving aeration and decreased edema - Bumex 1 mg PO daily - Medical Management PVD - s/p 2015 left fem-pop bypass. - s/p left great toe amputation. - cont ASA and atorvastatin - feet warm, no wounds. HTN - hold home lisinopril in order to use other meds to control HR - Will start Coreg 3.125 mg PO BID - Continue Bumex 1 mg PO daily DMT2 - FBS and 2 hr pc - Continue Levemir and Novolog CKD Stage 2 - monitor Cr. Bad tooth on left side of mouth for the last month. - states he plans to go to the dentist but concerned about the cost Chinchilla's Palsy. 09/28/17 - FERNIE without thrombus, DCCV unsuccessful yesterday, see report - EF 10-15%, medical management - Rate remains elevated in the 120-130s. - Start diltiazem IR 60mg Q6h, and wean drip as able - Increase diltiazem to 90mg in 6 hours if rate is consistently >100 - Continue diuresis with Bumex drip - monitor renal and electrolytes - chest x-ray in the am 09/29/17 - Converted to SR last evening, Continue Metoprolol, continue Cardizem IR until 0030 dose then DC - Cardizem CD 240 daily in am, Amiodarone 200mg daily, Eliquis 5mg BID - Stop Heparin and Amiodarone drips - CXR: Worsening airspace consolidation in the left upper lobe. - WBC up to 16.4, continues to cough - Consult hospitalist for further evaluation - K+ 3.3/ Mag 1.5, replace to keep K+ >4.0, Mag >2.0 - BNP pending 09/30/17 - Remains in SR - Bumex gtt stopped, started Bumex 2mg IV TID - WBC trending down - CXR in the am 10/01/17 - Remains in SR - Change to Bumex 2 mg PO BID - WBC WNL - Improved oxygenation - Transfer out of ICU Time spent with patient: less than 15 minutes Resuscitation Status: Full Code Exam Vital signs: Temperature 97.6 F 10/04/17 04:00 Pulse Rate 71 10/04/17 04:00 Respiratory Rate 18 10/04/17 04:00 Blood Pressure 145/71 H 10/04/17 04:00 Pulse Oximetry 96 10/04/17 04:00 - Constitutional no acute distress, well nourished, well developed, obese, cooperative - Routine HEENT Exam Head: Present: normocephalic, atraumatic Eye: Present: EOMI, PERRL ENT: Present: mucous membranes moist - Routine Neck Exam Present: supple, trachea midline. Absent: JVD, carotid bruit - Routine Chest/Breast/Axilla Exam Chest wall: Absent: tenderness - Routine Respiratory Exam Present: CTA bilaterally. Absent: accessory muscle use, dyspnea, rhonchi, stridor, wheezes, crackles - Routine Cardiovascular Exam Present: irregular rhythm. Absent: no murmur, JVD - Routine Abdominal Exam Present: soft, normoactive bowel sounds, non distended, non tender - Routine Extremities Exam Present: no edema, extremity cold to touch. Absent: cyanosis, clubbing - Routine Skin Exam Present: intact, dry, warm. Absent: cyanosis, erythema, wounds, rash - Routine Neurological Exam Present: alert, oriented X3, CN II-XII intact, moving all extremities - Routine Psychiatric Exam Present: normal affect, cooperative, good insight, good judgment Results 10/02/17 04:02 10/04/17 05:35 Comprehensive Metabolic Panel 10/04/17 Range/Units 05:35 Sodium 144 (136-146) MEQ/L Potassium 4.2 (3.6-5) MEQ/L Chloride 104 (98-107) MEQ/L Carbon Dioxide 31 H (22-30) MEQ/L BUN 34.0 H (9-20) MG/DL Creatinine 1.6 H (0.8-1.5) mg/dL Glucose 111 H (75-110) MG/DL Calcium 8.5 (8.4-10.2) MG/DL Intake and Output 10/03/17 10/04/17 10/04/17 22:59 06:59 14:59 Intake Total 200 / 200 100 / 100 Output Total 900 / 900 600 / 600 Balance -700 / -700 -500 / -500 Intake: Oral 200 / 200 100 / 100 Output: Urine 900 / 900 600 / 600 Other: Urine Appearance Cloudy Cloudy Hematuria Hematuria Urine Color Red Brown - Imaging and Cardiology Echo: report reviewed EKG results: report reviewed - EKG Interpretation EKG: no acute changes EKG shows: atrial fibrillation Discharge Plan - Med Rec/Dispo Referrals/Follow Up: Thang Jean-Baptiste MD [Physician] - [facility] Instructions: A-fib (Atrial Fibrillation) (DC) Additional Instructions: Needs follow up with PCP for recommended overnight oximetry study. Prescriptions: New Amiodarone [Pacerone] 200 mg PO DAILY #30 tab Apixaban [Eliquis] 5 mg PO BID #60 tab Atorvastatin [Lipitor] 40 mg PO HS #30 tab Bumetanide Tab [Bumex 1 mg Tab] 1 mg PO DAILY #30 tab Carvedilol [Coreg] 3.125 mg PO BIDWM #60 tab Chlorpheniramine [Chlor-Trimeton] 4 mg PO PRN PRN tab PRN Reason: For allergic rhinitis Cholecalciferol [Vit. D-3] 5,000 unit PO DAILY #30 cap Docusate Sodium [Colace] 100 mg PO DAILY cap Isosorbide Mononitrate ER [Imdur] 30 mg PO 0700 #30 tab Omeprazole [Prilosec] 20 mg PO ACB #30 cap Nitroglycerin [Nitrostat] 0.4 mg SL Q5MIN3 PRN #30 tab PRN Reason: Chest Pain Continue Hydralazine HCl 50 mg PO TIDWM #0 tab Insulin Lispro [HumaLOG] 25 unit SQ BID Gabapentin 300 mg PO HS Multivit-Min/FA/Lycopen/Lutein [Centrum Silver Tablet] 1 tab PO DAILY Chlorpheniramine/Dextromethorp [Coricidin Hbp Cough & Cold Tab] 2 tab PO PRN PRN PRN Reason: Prn Orders Insulin Detemir [Levemir Flextouch] 15 unit SQ BID #0 syringe Acetaminophen [Acetaminophen ER] 1,300 mg PO Q8H PRN PRN Reason: Pain Gabapentin [Neurontin] 100 mg PO QAM Discontinued Metoprolol Succinate [Toprol Xl] 100 mg PO DAILY Aspirin 325 mg PO DAILY Torsemide [Demadex] 20 mg PO DAILY Lisinopril [Prinivil] 5 mg PO DAILY - Disposition 01 Discharged Home,Parent Care - Dismissal Complete Discharge Instructions are:: Complete <Thang Jean-Baptiste - Last Filed: 10/12/17 13:56> Discharge Information Date of admission: 09/26/17 20:23 Attending Physician: Abhishek Church MD Primary care physician: Alfonzo Connolly DO Consults: 09/29/17 12:29 Physician Consult [CONS] Routine Consulting Provider: Shi Shannon Reason For Exam: leukocytosis, cough Ordering Provider has Notified Osteopathic Physician: Yes 10/02/17 14:22 Physician Consult [CONS] Routine Consulting Provider: Louann Mandaen Maddock Reason For Exam: CONT CARE Ordering Provider has Notified Osteopathic Physician: Yes - Discharge Diagnosis (1) Atrial fibrillation with RVR Status: Resolved (2) NSTEMI (non-ST elevated myocardial infarction) Status: Acute (3) Coronary artery disease Status: Chronic (4) Nonischemic cardiomyopathy Status: Chronic (5) Dilated cardiomyopathy Status: Chronic (6) Peripheral vascular disease Status: Chronic (7) Hypertension Status: Chronic (8) Diabetes Status: Chronic (9) Chronic kidney disease Status: Chronic (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 For more details refer to the complete medical record. Exam Vital signs: Temperature 97.3 F 10/04/17 08:00 Pulse Rate 77 10/04/17 08:00 Respiratory Rate 16 10/04/17 08:00 Blood Pressure 157/69 H 10/04/17 08:00 Pulse Oximetry 92 10/04/17 08:00 Results 10/02/17 04:02 10/04/17 05:35 Attestation Narriative - Attestation Attestation Narrative: 10/12/17 13:56 Recommendation After examining the patient I agree with the above assessment. I am involved in the formulation of the patient's plan of care.
[2017-10-04 08:38] VITALS: BP 157/69; PULSE 77; RESP 16; TEMP 97.3; O2SAT 92
[2017-10-04] MEDS: INSULIN DETEMIR 100unit/ml INJECTION SQ SCH (08:54)
[2017-10-04] MEDS: AMIODARONE 200 MG TABLET PO SCH (08:55)
[2017-10-04] MEDS: HYDRALAZINE 25 MG TABLET PO SCH (08:55)
[2017-10-04] MEDS: CARVEDILOL 3.125 MG TABLET PO SCH (08:55)
[2017-10-04] MEDS: DOCUSATE SODIUM 100 MG CAPSULE PO SCH (08:55)
[2017-10-04] MEDS: GABAPENTIN 100 MG CAPSULE PO SCH (08:55)
[2017-10-04] MEDS: BUMETANIDE 1 MG TABLET PO SCH (08:55)
[2017-10-04] MEDS: APIXABAN 5 MG TABLET PO SCH (08:55)
[2017-10-04] MEDS: INSULIN ASPART 100unit/ml INJECTION SQ SCH (08:55)
== END 2017-10-04 10:35 | disposition home or self-care (01) | DRG 280 ==
LOC: ED 18:09 → EDHOLD 20:23 → CCU 20:47 → MED 10-01 16:34
PROVIDERS: ADMIT Internal Medicine Interventional Cardiology; ATTEND Internal Medicine Interventional Cardiology